=== PATIENT | female | born 1925 | race Hispanic/Latino ===

== ENCOUNTER 2016-09-14 20:30 | Emergency (ER) | payer MEDICARE ==
[2016-09-14 20:45] VITALS: BP 133/73; PULSE 70; RESP 18; TEMP 98; O2SAT 97
[2016-09-14 20:49] VITALS: BMI 21.0
--- NOTE | 2016-09-14 20:59 | ED PDOC ---
Arrival/HPI - General Chief Complaint: Altered Mental Status Time Seen by Provider: 09/14/16 20:49 Historian: Patient, Family (Daughter) - History of Present Illness Narrative History of Present Illness (Text): 09/14/16 20:55 Gabriela Almonte is an 89 year old female, whose past medical history includes dementia, breast cancer, COPD, and knee replacement, who presents to the Emergency department accompanied by daughter for altered mental status. Patient had an episode witnessed by her daughter tonjoshua where daughter felt patient's dementia was exacerbated and patient became angry, followed by an episode of calmness. Patient is back to her baseline and denies any chest pain, shortness of breath, abdominal pain, nausea, vomiting, or any other complaints. Time/Duration: Other (tonight) Symptom Onset: Sudden Symptom Course: Resolved Activities at Onset: Rest, Light Context: Home Past Medical History - Provider Review Nursing Documentation Reviewed: Yes - Infectious Disease Hx of Infectious Diseases: None - Tetanus Immunization Tetanus Immunization: Unknown - Cardiac Hx Cardiac Disorders: Yes Hx [place]: Yes Hx Hypertension: Yes - Pulmonary Hx Chronic Obstructive Pulmonary Disease (COPD): Yes - Neurological HX Cerebrovascular Accident: Yes Hx Transient Ischemic Attacks (TIA): Yes - HEENT Hx HEENT Disorder: Yes Hx Cataracts: Yes (bilateral implants) - Renal Hx Renal Failure: No - Endocrine/Metabolic Hx Diabetes Mellitus Type 1: No Hx Diabetes Mellitus Type 2: No Hx Hypothyroidism: No - Hematological/Oncological Hx Blood Disorders: No Hx Cancer: Yes (L breast cancer) - Integumentary Hx Dermatological Disorder: No Hx Basal Cell Carcinoma: No Hx Eczema: No Hx Melanoma: No Hx Psoriasis: No Hx Squamous Cell Carcinoma: No - Musculoskeletal/Rheumatological Hx Arthritis: Yes - Gastrointestinal Hx Gastrointestinal Disorders: No Hx Colostomy: No Hx Crohn's Disease: No Hx Diverticulitis: No Hx Gall Bladder Disease: No Hx Gastroesophageal Reflux: No Hx Ileostomy: No Hx Liver Failure: No Hx Pancreatitis: No HX Swallowing Problems: No - Genitourinary/Gynecological Hx Genitourinary Disorders: No Hx Hematuria: No Hx Incontinence: No Hx Sexually Transmitted Diseases: No Hx Urinary Tract Infection: No - Psychiatric Hx Psychophysiologic Disorder: Yes Hx Anxiety: Yes Hx Depression: No Hx Physical Abuse: No Hx Substance Use: No - Surgical History Hx Cholecystectomy: Yes Hx Joint Replacement: Yes (right knee replacement 15 yrs ago) Hx Mastectomy: Yes (left breast) - Anesthesia Hx Anesthesia: Yes Hx Anesthesia Reactions: No Hx Malignant Hyperthermia: No - Suicidal Assessment Feels Threatened In Home Enviroment: No Family/Social History - Physician Review Nursing Documentation Reviewed: Yes Family/Social History: Unknown Family HX Smoking Status: Light Smoker < 10 Cigarettes Daily Hx Alcohol Use: No Hx Substance Use: No Hx Substance Use Treatment: No Allergies/Home Meds Allergies/Adverse Reactions: Allergies No Known Allergies Allergy (Verified 11/08/15 15:33) Home Medications: Home Meds Medication Instructions Recorded Confirmed Metoprolol Tartrate [Lopressor] 25 mg PO DAILY 07/16/12 09/14/16 Alprazolam [Xanax] 1 tab PO QID PRN 11/08/15 09/14/16 traMADol [Ultram] 1 tab PO BID PRN 11/08/15 09/14/16 Clopidogrel [Plavix] 75 mg PO DAILY 09/14/16 09/14/16 Risperidone [Risperdal] 0.5 mg PO BID 09/14/16 09/14/16 Review of Systems - Physician Review All systems were reviewed & negative as marked: Yes Physical Exam - Physical Exam Narrative Physical Exam (Text): - Review of Systems Constitutional: Normal. absent: Fatigue, Weight Change, Fevers Eyes: Normal ENT: Normal Respiratory: Normal absent: SOB, Cough, Sputum Cardiovascular: Normal absent: Chest pain, Palpitations, Syncope Gastrointestinal: Normal absent: Abdominal pain, Diarrhea, Nausea, Vomiting Genitourinary: Normal. absent: Dysuria, Frequency, Hematuria Musculoskeletal: Normal. absent: Arthralgias, Back Pain, Neck Pain Skin: Normal Neurological: Normal absent: Focal Weakness Endocrine: Normal Hemo/Lymphatic: Normal Psychiatric: +dementia - Physical exam Patient appears age appropriate, speaking full sentences without difficulty - Systems Exam Head: Present: Atraumatic, Normocephalic Pupils: Present: PERRL Extraocular Muscles: Present: EOMI Conjunctiva: Present: Normal Mouth: Present: Moist Mucous Membranes Neck: Present: Normal Range of Motion. No: MIDLINE TENDERNESS, Paraspinal Tenderness Respiratory/Chest: Present: Clear to Auscultation, Good Air Exchange. No: Respiratory Distress, Accessory Muscle Use, Tachypnic Cardiovascular: Present: Regular Rate and Rhythm, Normal S1, S2, Peripheral Pulses Present. No: Murmurs Abdomen: Present: Normal Bowel Sounds, No: Tenderness, Peritoneal Signs, Rebound, Guarding, Distention Back: Present: Normal Inspection. No: Midline Tenderness, Paraspinal Tenderness Upper Extremity: Present: Normal Inspection. No: Cyanosis, Edema Lower Extremity: Present: Normal Inspection. No: Edema Neurological: Present: GCS=15, Speech Normal, cranial nerves II through XII fully intact with no cerebellar abnormality, neuro-sensory fully intact. No focal neurological deficits. Skin: Present: Warm, Dry, Normal Color. No: Rashes Psychiatric: Present: Alert Vital Signs Reviewed: Yes Vital Signs Temp Pulse Resp BP Pulse Ox 09/14/16 20:45 98.0 F 70 18 133/73 97 Temperature: Afebrile Blood Pressure: Normal Pulse: Regular Respiratory Rate: Normal Appearance: Positive for: Well-Appearing, Non-Toxic Pain Distress: None Mental Status: Positive for: other (Alert) Medical Decision Making ED Course and Treatment: 09/14/16 20:55 Impression: 89 year old female brought in by daughter for episode of AMS. Pt currently in no distress, speaking full sentences without difficulty, no focal neurological deficits on exam, at baseline per her daughter. Differential Diagnosis included but are not limited to: dehydration vs. UTI vs. pneumonia vs. dementia Plan: -- EKG -- CT Head w/o contrast -- Labs, blood culture -- Urinalysis, urine culture -- Reassess and disposition Prior Visits: Notes and results from previous visits were reviewed. On 03/31/2016, pt was seen in the Emergency department and admitted for CVA. Progress Notes: EKG: Ordered, reviewed, and independently interpreted the EKG. Rate : 68 BPM Rhythm : NSR Interpretation : No ST-segment elevations, RBBB. 09/14/16 22:39 CT HEAD VRAD IMPRESSION: No acute intracranial hemorrhage, or suspicious mass effect. Findings consistent with prior cerebral infarction, as detailed above. Dictated By: Anastasiia Mcneal MD Chest xray interpreted by ED physician shows no pneumothorax, no cardiomegaly, no infiltrates dw Dr. Victor M Kang in detail, including labs, hx, and PE findings. States pt can be dc'd home and he will do a home visit. pt's daughter agrees with plan and states she feels comfortable taking mom home on dc pt in no distress with no focal neurological deficits, not agitated - Lab Interpretations Lab Results: 09/14/16 21:20 09/14/16 21:40 Lab Results 09/14/16 21:40: Sodium 141, Potassium 4.0, Chloride 105, Carbon Dioxide 28, Anion Gap 12, BUN 13, Creatinine 0.9, Est GFR ( Amer) > 60, Est GFR (Non- Af Amer) 59, Random Glucose 71, Calcium 8.0 L, Total Bilirubin 0.4, AST 37, ALT 37, Alkaline Phosphatase 69, Total Protein 6.6, Albumin 3.7, Globulin 3.0, Albumin/Globulin Ratio 1.2 09/14/16 21:20: PT 11.0, INR 1.02, APTT 26.4 09/14/16 21:20: WBC 4.8 D, RBC 4.35, Hgb 13.6, Hct 39.6, MCV 91.0, MCH 31.3, MCHC 34.3, RDW 12.4, Plt Count 188, MPV 9.6, Gran % 64.2, Lymph % (Auto) 24.7, [place] % (Auto) 10.1 H, Eos % (Auto) 0.8 L, Baso % (Auto) 0.2, Gran # 3.06, Lymph # 1.2, [place] # 0.5, Eos # 0.0, Baso # 0.01 09/14/16 21:00: Urine Color Yellow, Urine Appearance Clear, Urine pH 6.5, Ur Specific [place] 1.015, Urine Protein Negative, Urine Glucose (UA) Negative, Urine Ketones Negative, Urine Blood Negative, Urine Nitrate Negative, Urine Bilirubin Negative, Urine Urobilinogen 1.0 H, Ur Leukocyte Esterase Negative I have reviewed the lab results: Yes - RAD Interpretation Radiology Orders: 09/14/16 20:56 HEAD W/O CONTRAST [CT] Stat CHEST PORTABLE [RAD] Stat - EKG Interpretation Interpreted by ED Physician: Yes Type: 12 lead EKG - Scribe Statement The provider has reviewed the documentation as recorded by the Soheila Gibson Provider Scribe Attestation: All medical record entries made by the Scribe were at my direction and personally dictated by me. I have reviewed the chart and agree that the record accurately reflects my personal performance of the history, physical exam, medical decision making, and the department course for this patient. I have also personally directed, reviewed, and agree with the discharge instructions and disposition. Disposition/Present on Arrival - Present on Arrival Any Indicators Present on Arrival: No History of DVT/PE: No History of Uncontrolled Diabetes: No Urinary Catheter: No History of Decub. Ulcer: No History Surgical Site Infection Following: None - Disposition Have Diagnosis and Disposition been Completed?: Yes Diagnosis: Altered mental status Disposition: HOME/ ROUTINE Disposition Time: 22:41 Patient Plan: Discharge Condition: GOOD Discharge Instructions (ExitCare): Altered Mental Status (ED), Dementia (ED) Additional Instructions: PLEASE RETURN TO THE EMERGENCY DEPARTMENT FOR NEW OR WORSENING SYMPTOMS. RETURN RIGHT AWAY IF YOU CANNOT FOLLOW UP WITH YOUR PRIMARY CARE DOCTOR, CLINIC, OR SPECIALIST IN 1-2 DAYS. Referrals: Kvng Kang MD [Primary Care Provider] - Follow up with primary
[2016-09-14 21:09] LABS: PH,URINE 6.5 (4.7-8.0); URINE BILIRUBIN NEGATIVE (NEGATIVE); URINE BLOOD NEGATIVE (NEGATIVE); URINE GLUCOSE (UA) NEGATIVE (NEGATIVE); URINE LEUKOCYTE ESTERASE NEGATIVE Leu/uL (NEGATIVE); URINE NITRATE NEGATIVE (NEGATIVE); URINE PROTEIN NEGATIVE mg/dL (<30 mg/dL)
[2016-09-14 21:12] LABS: URINE APPEARANCE CLEAR (CLEAR); URINE COLOR YELLOW (YELLOW)
[2016-09-14 21:39] LABS: BASO # 0.01 K/mm3 (0.0-2.0); BASO % 0.2 % (0.0-3.0); EOS % 0.8 % (1.5-5.0); GRAN # 3.06 (1.4-6.5); GRAN % 64.2 % (50.0-68.0); HEMOGLOBIN 13.6 gm/dL (12.0-16.0); LYMPH # 1.2 (1.2-3.4); LYMPH % 24.7 % (22.0-35.0); MEAN CORPUSCULAR HEMOGLOBIN 31.3 pg (25.0-35.0); MEAN CORPUSCULAR HGB CONC 34.3 g/dl (31.0-37.0); MEAN PLATELET VOLUME 9.6 fl (7.0-11.0); MONO # 0.5 (0.1-0.6); MONO % 10.1 % (1.0-6.0); PLATELET COUNT 188 10^3/uL (120.0-450.0); RBC 4.35 10^6/uL (3.5-6.1); RED CELL DISTRIBUTION WIDTH 12.4 % (11.5-14.5); WHITE BLOOD COUNT 4.8 10^3/ul (4.5-11.0)
[2016-09-14 21:50] LABS: INR 1.02 (0.93-1.08); PARTIAL THROMBOPLASTIN TIME 26.4 Seconds (23.7-30.8)
[2016-09-14 21:53] LABS: ALB/GLOB RATIO 1.2 (1.1-1.8); ALBUMIN 3.7 g/dL (3.0-4.8); ALT/SGPT 37 U/L (7-56); AST/SGOT 37 U/L (15-39); BLOOD UREA NITROGEN 13 mg/dL (7-21); GFR AFRICAN-AMERICAN > 60; GFR NON-AFRICAN AMERICAN 59
--- NOTE | 2016-09-14 22:20 | CT ---
EXAM: CT Head Without Intravenous Contrast CLINICAL HISTORY: 89 years old, female; Signs and symptoms; Altered mental status/memory loss; Additional info: AMS TECHNIQUE: Axial computed tomography images of the head/brain without intravenous contrast. This CT exam was performed using one or more of the following dose reduction techniques: automated exposure control, adjustment of the mA and/or kV according to patient size, and/or use of iterative reconstruction technique. COMPARISON: CT - HEAD W/O CONTRAST 03/31/2016 4:36:57 PM MRI examination of the brain performed 03/31/2016. FINDINGS: Brain: No acute intracranial hemorrhage. Decreased attenuation within the distribution of the right middle cerebral artery, consistent with prior cerebral infarction (detected on 03/31/2016 MRI). Otherwise, age-appropriate periventricular white matter disease. No edema. Ventricles: Age-appropriate ventriculomegaly. Bones: No acute displaced fracture. Sinuses: Unremarkable as visualized. No acute sinusitis. Mastoid air cells: Unremarkable as visualized. No mastoid effusion. IMPRESSION: No acute intracranial hemorrhage, or suspicious mass effect. Findings consistent with prior cerebral infarction, as detailed above.
--- NOTE | 2016-09-15 09:09 | RAD ---
HISTORY: AMS COMPARISON: 04/05/2016 FINDINGS: LUNGS: No active pulmonary disease. PLEURA: No significant pleural effusion identified, no pneumothorax apparent. CARDIOVASCULAR: Normal. OSSEOUS STRUCTURES: No significant abnormalities. VISUALIZED UPPER ABDOMEN: Normal. OTHER FINDINGS: None. IMPRESSION: No active disease.
--- NOTE | 2016-09-15 09:26 | CARD ---
APPROVED REPORT EKG Measurement Heart [id number] <Conclusion> Normal sinus rhythm Incomplete right bundle branch block Borderline ECG
== END 2016-09-14 22:43 | disposition home or self-care (01) ==
LOC: ED 20:30
DX: R41.82 Altered mental status, unspecified (principal); F03.90 Unspecified dementia, unspecified severity, without behavioral disturbance, psychotic disturbance, mood disturbance, and anxiety; I25.2 Old myocardial infarction; I10 Essential (primary) hypertension; Z72.0 Tobacco use

== ENCOUNTER 2016-09-24 14:25 | Observation (INO) | payer MEDICARE ==
[2016-09-24 14:36] VITALS: TEMP 97.8
[2016-09-24] MEDS ORDERED: Sodium Chloride 0.9% 500 ML IV STA (14:47)
[2016-09-24] MEDS ORDERED: Albuterol-Ipratrop 3 mg / 0.5 (3 ml) UD IH STA (14:47)
--- NOTE | 2016-09-24 14:52 | ED PDOC ---
Arrival/HPI - General Chief Complaint: Altered Mental Status Time Seen by Provider: 09/24/16 14:37 Historian: Patient, Family, Other (daughter) - History of Present Illness Narrative History of Present Illness (Text): 09/24/16 14:59 An 89 year old female, whose past medical history includes dementia, brought in by EMS with daughter after visiting nurse noted that she "appeared dehydrated" and family reports that she "hasn't eaten for several days". Patient reportedly with productive cough and shortness of breath and at times has been more confused. No falls or trauma noted. No abdominal pain. Patient denies chest pain. Reports intermittent headaches, none currently. PMD: Dr. Kang 09/24/16 18:42 Time/Duration: 1 week Symptom Onset: Sudden Symptom Course: Unchanged Activities at Onset: Rest Past Medical History - Provider Review Nursing Documentation Reviewed: Yes - Infectious Disease Hx of Infectious Diseases: None - Tetanus Immunization Tetanus Immunization: Unknown - Reproductive Menopause: Yes - Cardiac Hx Cardiac Disorders: Yes Hx [place]: Yes Hx Hypertension: Yes - Pulmonary Hx Chronic Obstructive Pulmonary Disease (COPD): Yes - Neurological HX Cerebrovascular Accident: Yes Hx Transient Ischemic Attacks (TIA): Yes - HEENT Hx HEENT Disorder: Yes Hx Cataracts: Yes (bilateral implants) - Renal Hx Renal Failure: No - Endocrine/Metabolic Hx Diabetes Mellitus Type 1: No Hx Diabetes Mellitus Type 2: No Hx Hypothyroidism: No - Hematological/Oncological Hx Blood Disorders: No Hx Cancer: Yes (L breast cancer) - Integumentary Hx Dermatological Disorder: No Hx Basal Cell Carcinoma: No Hx Eczema: No Hx Melanoma: No Hx Psoriasis: No Hx Squamous Cell Carcinoma: No - Musculoskeletal/Rheumatological Hx Arthritis: Yes - Gastrointestinal Hx Gastrointestinal Disorders: No Hx Colostomy: No Hx Crohn's Disease: No Hx Diverticulitis: No Hx Gall Bladder Disease: No Hx Gastroesophageal Reflux: No Hx Ileostomy: No Hx Liver Failure: No Hx Pancreatitis: No HX Swallowing Problems: No - Genitourinary/Gynecological Hx Genitourinary Disorders: No Hx Hematuria: No Hx Incontinence: No Hx Sexually Transmitted Diseases: No Hx Urinary Tract Infection: No - Psychiatric Hx Psychophysiologic Disorder: Yes Hx Anxiety: Yes Hx Depression: No Hx Physical Abuse: No Hx Substance Use: No - Surgical History Hx Cholecystectomy: Yes Hx Joint Replacement: Yes (right knee replacement 15 yrs ago) Hx Mastectomy: Yes (left breast) - Anesthesia Hx Anesthesia: Yes Hx Anesthesia Reactions: No Hx Malignant Hyperthermia: No - Suicidal Assessment Feels Threatened In Home Enviroment: No Family/Social History - Physician Review Nursing Documentation Reviewed: Yes Family/Social History: No Known Family HX Smoking Status: Light Smoker < 10 Cigarettes Daily Hx Alcohol Use: No Hx Substance Use: No Hx Substance Use Treatment: No Allergies/Home Meds Allergies/Adverse Reactions: Allergies No Known Allergies Allergy (Verified 09/24/16 14:36) Home Medications: Home Meds Medication Instructions Recorded Confirmed Metoprolol Tartrate [Lopressor] 25 mg PO BID 07/16/12 09/24/16 Alprazolam [Xanax] 1 tab PO QID PRN 11/08/15 09/24/16 traMADol [Ultram] 1 tab PO BID PRN 11/08/15 09/24/16 Clopidogrel [Plavix] 75 mg PO DAILY 09/14/16 09/24/16 Atorvastatin [Lipitor] 10 mg PO HS 09/24/16 09/24/16 Fluticasone/Vilanterol [Breo 1 inh INH DAILY 09/24/16 09/24/16 Ellipta 200-25 Mcg INH] Review of Systems - Review of Systems Systems not reviewed;Unavailable: Dementia Constitutional: Fatigue. absent: Fevers Eyes: absent: Vision Changes, Photophobia ENT: Sinus Congestion. absent: Hearing Changes, Voice Changes, Sore Throat, Rhinorrhea Respiratory: SOB, Cough, Sputum, Wheezing Cardiovascular: [place], Other (chest tightness). absent: Chest Pain, Calf Pain Gastrointestinal: Appetite Changes. absent: Abdominal Pain, Constipation, Diarrhea Genitourinary Female: absent: Dysuria, Frequency, Hematuria Musculoskeletal: absent: Arthralgias, Back Pain Skin: absent: Rash Neurological: Headache. absent: Dizziness, Focal Weakness Endocrine: absent: Polyuria Hemo/Lymphatic: absent: Easy Bleeding Psychiatric: Anxiety Physical Exam - Physical Exam Narrative Physical Exam (Text): 09/24/16 14:55 Head: Atraumatic. Normocephalic. Eyes: PERRL. EOMI. Conjunctivae are not pale. ENT: Dry Mucous membranes. No drooling or oropharygneal exudate or abscess. No facial swelling. No nasal discharge. Neck: Supple. Full ROM. No JVD. No lymphadenopathy. Cardiovascular: Regular rate. Regular rhythm. Systolic murmur. Pulmonary/Chest: Wheezing at lower bases bilaterally. No accessory muscle usage or respiratory distress. Abdominal: Soft and non-distended. There is no tenderness. No rebound, guarding, or rigidity. No organomegaly. Good bowel sounds. Back: No CVA tenderness. Rectal: no melena or active bleeding Extremities: No edema. No cyanosis. No clubbing. Full range of motion in all extremities. No calf tenderness. Skin: Skin is pale but warm. Neurological: Alert, awake. Motor is intact in upper and lower extremities with mild weakness to left upper extremity reportedly chronic from prior stroke. No slurred speech. No facial droop. No meningeal signs. Psychiatric: History of dementia. Denies depression. Anxious. 09/24/16 19:08 Vital Signs Reviewed: Yes Vital Signs Temp Pulse Resp BP Pulse Ox 09/24/16 18:01 95 H 16 133/60 96 09/24/16 16:30 91 H 16 122/54 L 96 09/24/16 15:16 84 19 96 09/24/16 14:29 97.8 F 80 20 93/45 L 97 Temperature: Afebrile Blood Pressure: Normal Pulse: Regular Respiratory Rate: Normal Appearance: Positive for: Non-Toxic, Comfortable, Cachectic Pain Distress: None Mental Status: Positive for: other (alert, mental status at baseline, per daughter) Medical Decision Making ED Course and Treatment: 09/24/16 14:53 Impression: An 89 year old female with sinus congestion, cough and loss of appetite. Differential Diagnosis included but are not limited to: dehydration vs. pneumonia vs. COPD vs. Dementia Plan: -- EKG -- chest xray -- labs -- Urinalysis -- IV fluids, Duoneb -- Reassess and disposition Prior Visits: Notes and results from previous visits were reviewed. Patient was last seen in the emergency department on 09/14/16 for evaluation of altered mental status. Progress Notes: Patient's history supplemented by daughter at bedside. She reports patient is a smoker but due to cough "hasn't smoked in three days". On exam she is initially hypotensive but denies chest pain or abdominal pain or sob. Wheezes noted which improved but persisted after initial nebulizers. No respiratory distress noted. Patient reportedly "hasn't eaten anything for days" although abdomen is soft and nontender. IV fluids initiated for reported lack of po intake, hypotension improved after fluid administration. CXR as per radiology unremarkable although risks of cancer/malignancy reviewed due to smoking history. Patient has intermittent agitation in ED, family states she has been anxious and takes xanax at home. Xanax ordered in ED. I reviewed case with PMD Dr Sharla Kang, patient to be admitted for medical clearance, IV hydration, copd treatment, and potential mental health evaluation. Currently no focal motor or sensory deficits, neurologically intact at her baseline. EKG with t wave changes not noted on prior EKG, although RBBB previously noted. Her initial troponin and BNP are unremarkable and she does not complain of chest pain on re-examination. I reviewed treatment plan with patient and daughter. Daughter confirms she is acting her typical self and on exam there is no acute focal weakness noted or change in mental status with serial exams in ED. Continues to deny any history of chest pain. - Lab Interpretations Lab Results: 09/24/16 15:07 09/24/16 16:34 Lab Results 09/24/16 16:34: Sodium 141, Chloride 101, Potassium 3.9, Carbon Dioxide 28, Anion Gap 16, BUN 17, Creatinine 0.7, Est GFR ( Amer) > 60, Est GFR (Non- Af Amer) > 60, Random Glucose 105, Calcium 8.7, Total Bilirubin 0.7, AST 25, ALT 34, Alkaline Phosphatase 84, Lactate Dehydrogenase 405, Total Creatine Kinase 24 L, Troponin I < 0.01, NT-Pro-B Natriuret Pep 285, Total Protein 7.1, Albumin 3.9, Globulin 3.2, Albumin/Globulin Ratio 1.2 09/24/16 15:14: POC Glucose (mg/dL) 128 H 09/24/16 15:07: PT 11.7, INR 1.08, APTT 28.7 09/24/16 15:07: pO2 42, VBG pH 7.30 L, VBG pCO2 64.0 H, VBG HCO3 31.5 H, VBG Total CO2 33.5 H, VBG O2 Sat (Calc) 77.6 H, VBG Base Excess 3.2 H, VBG Potassium 6.1 H, Sodium 137.0, Chloride 104.0, Glucose 111 H, Lactate 1.4, FiO2 21.0, Venous Blood Potassium 6.1 H 09/24/16 15:07: WBC 8.6 D, RBC 4.99, Hgb 15.7, Hct 45.2, MCV 90.6, MCH 31.5, MCHC 34.7, RDW 12.5, Plt Count 295, MPV 9.6, Gran % 71.3 H, Lymph % (Auto) 18.9 L, [place] % (Auto) 8.9 H, Eos % (Auto) 0.5 L, Baso % (Auto) 0.4, Gran # 6.12, Lymph # 1.6, [place] # 0.8 H, Eos # 0.0, Baso # 0.03 I have reviewed the lab results: Yes - RAD Interpretation Radiology Orders: 09/24/16 14:46 CHEST PORTABLE [RAD] Stat - EKG Interpretation EKG Interpretation (Text): EKG 15:09 normal sinus rhythm rate of 84 with premature atrial complexes, t wave abnormality, right bundle branch block Interpreted by ED Physician: Yes Type: 12 lead EKG Comparison: Different from prev. EKG - Medication Orders Current Medication Orders: Discontinued Medications Albuterol/Ipratropium (Duoneb 3 Mg/0.5 Mg (3 Ml) Ud) 3 ml IH STAT STA Stop: 09/24/16 14:48 Last Admin: 09/24/16 15:22 Dose: 3 ml Alprazolam (Xanax) 0.5 mg PO STAT STA Stop: 09/24/16 18:08 Last Admin: 09/24/16 18:20 Dose: 0.5 mg Sodium Chloride (Sodium Chloride 0.9%) 500 mls @ 1,000 mls/hr IV .Q30M STA Stop: 09/24/16 15:16 Last Admin: 09/24/16 15:22 Dose: 1,000 mls/hr - Scribe Statement The provider has reviewed the documentation as recorded by the Soheila Buenrostro Provider Scribe Attestation: All medical record entries made by the Scribe were at my direction and personally dictated by me. I have reviewed the chart and agree that the record accurately reflects my personal performance of the history, physical exam, medical decision making, and the department course for this patient. I have also personally directed, reviewed, and agree with the discharge instructions and disposition. Disposition/Present on Arrival - Present on Arrival Any Indicators Present on Arrival: No History of DVT/PE: No History of Uncontrolled Diabetes: No Urinary Catheter: No History of Decub. Ulcer: No History Surgical Site Infection Following: None - Disposition Have Diagnosis and Disposition been Completed?: Yes Diagnosis: Anxiety, COPD (chronic obstructive pulmonary disease), Appetite loss, Dehydration, Abnormal EKG Disposition: HOSPITALIZED Disposition Time: 17:30 Patient Plan: Admission Patient Problems: Current Active Problems Problem Status Onset Abnormal EKG Acute Anxiety Acute Appetite loss Acute COPD (chronic obstructive pulmonary disease) Acute Dehydration Acute Condition: FAIR
[2016-09-24 15:20] LABS: VENOUS BLOOD GAS BASE EXCESS 3.2 mmol/L (0.0-2.0); VENOUS BLOOD GAS PO2 42 mm/Hg (30-55)
[2016-09-24 15:21] LABS: BASO # 0.03 K/mm3 (0.0-2.0); BASO % 0.4 % (0.0-3.0); EOS % 0.5 % (1.5-5.0); GRAN # 6.12 (1.4-6.5); GRAN % 71.3 % (50.0-68.0); HEMOGLOBIN 15.7 gm/dL (12.0-16.0); LYMPH # 1.6 (1.2-3.4); LYMPH % 18.9 % (22.0-35.0); MEAN CELL VOLUME 90.6 fL (80.0-105.0); MEAN CORPUSCULAR HEMOGLOBIN 31.5 pg (25.0-35.0); MEAN CORPUSCULAR HGB CONC 34.7 g/dl (31.0-37.0); MEAN PLATELET VOLUME 9.6 fl (7.0-11.0); MONO # 0.8 (0.1-0.6); MONO % 8.9 % (1.0-6.0); PLATELET COUNT 295 10^3/uL (120.0-450.0); RBC 4.99 10^6/uL (3.5-6.1); RED CELL DISTRIBUTION WIDTH 12.5 % (11.5-14.5); WHITE BLOOD COUNT 8.6 10^3/ul (4.5-11.0)
[2016-09-24 15:34] LABS: INR 1.08 (0.93-1.08); PARTIAL THROMBOPLASTIN TIME 28.7 Seconds (23.7-30.8); PROTHROMBIN TIME 11.7 Seconds (9.9-11.8)
--- NOTE | 2016-09-24 16:27 | RAD ---
HISTORY: cough, sob COMPARISON: 09/14/2016 FINDINGS: LUNGS: No pulmonary infiltrate. Several calcified granulomas at lateral right base. PLEURA: No significant pleural effusion identified, no pneumothorax apparent. CARDIOVASCULAR: Normal. OSSEOUS STRUCTURES: No significant abnormalities. VISUALIZED UPPER ABDOMEN: Normal. OTHER FINDINGS: None. IMPRESSION: No active disease.
[2016-09-24 17:33] LABS: ALB/GLOB RATIO 1.2 (1.1-1.8); ALBUMIN 3.9 g/dL (3.0-4.8); ALT/SGPT 34 U/L (7-56); AST/SGOT 25 U/L (15-39); BLOOD UREA NITROGEN 17 mg/dL (7-21); CALCIUM 8.7 mg/dL (8.4-10.5); GFR AFRICAN-AMERICAN > 60; GFR NON-AFRICAN AMERICAN > 60
[2016-09-24 17:46] LABS: B-TYPE NATRIURETIC PEPTIDE 285 pg/mL (0-450)
[2016-09-24 17:47] LABS: TROPONIN I < 0.01 ng/mL
[2016-09-24 20:23] VITALS: BMI 14.9
--- NOTE | 2016-09-24 20:57 | CT ---
EXAM: CT Head Without Intravenous Contrast CLINICAL HISTORY: 89 years old, female; Pain; Headache; Headache not specified TECHNIQUE: Axial computed tomography images of the head/brain without intravenous contrast. This CT exam was performed using one or more of the following dose reduction techniques: automated exposure control, adjustment of the mA and/or kV according to patient size, and/or use of iterative reconstruction technique. COMPARISON: CT - HEAD W/O CONTRAST 09/14/2016 9:41:44 PM FINDINGS: Brain: Encephalomalacia predominantly involving the right frontal parietal lobes, right basal ganglia and insula. Correlate for prior right MCA territory infarct. Bilateral white matter changes. This is nonspecific and may include microangiopathic disease, small lacunae of indeterminate chronicity, chronic infarcts and/or encephalomalacia. Vascular calcification. No hemorrhage. No edema. Ventricles: Ex vacuo dilatation of the right lateral ventricle. No hydrocephalus. Sinuses: No acute sinusitis. Mastoid air cells: No mastoid effusion. IMPRESSION: No CT evidence of acute intracranial abnormality. Chronic changes as above.
[2016-09-24 22:57] LABS: URINE BILIRUBIN NEGATIVE (NEGATIVE); URINE BLOOD NEGATIVE (NEGATIVE); URINE GLUCOSE (UA) NEGATIVE (NEGATIVE); URINE LEUKOCYTE ESTERASE NEGATIVE Leu/uL (NEGATIVE); URINE NITRATE NEGATIVE (NEGATIVE); URINE PROTEIN TRACE mg/dL (<30 mg/dL)
[2016-09-24 23:05] LABS: URINE APPEARANCE CLEAR (CLEAR); URINE COLOR YELLOW (YELLOW)
[2016-09-24 23:12] LABS: URINE BACTERIA FEW (NEG); URINE EPITHELIAL CELLS 0 - 2 /hpf (0-5); URINE RBC 0 - 2 /hpf (0-2); URINE WBC 0 - 2 /hpf (0-6)
[2016-09-25] MEDS: Dextrose 5%/0.45% NS 1,000 ML IV SCH ×2 (00:03→10:22)
[2016-09-25] MEDS: Levalbuterol 0.63 MG/3 ML Inhal Soln UD IH SCH ×2 (02:45→08:26)
[2016-09-25 07:09] LABS: MEAN CELL VOLUME 89.3 fL (80.0-105.0); MEAN CORPUSCULAR HEMOGLOBIN 31.3 pg (25.0-35.0); MEAN PLATELET VOLUME 9.2 fl (7.0-11.0); RBC 4.48 10^6/uL (3.5-6.1); RED CELL DISTRIBUTION WIDTH 12.1 % (11.5-14.5); WHITE BLOOD COUNT 7.2 10^3/ul (4.5-11.0)
[2016-09-25 07:42] LABS: ALB/GLOB RATIO 1.1 (1.1-1.8); ALBUMIN 3.4 g/dL (3.0-4.8); ALT/SGPT 26 U/L (7-56); AST/SGOT 25 U/L (15-39); BLOOD UREA NITROGEN 12 mg/dL (7-21); CALCIUM 8.3 mg/dL (8.4-10.5); GFR AFRICAN-AMERICAN > 60; GFR NON-AFRICAN AMERICAN > 60
[2016-09-25 08:05] VITALS: BP 135/74; RESP 20; O2SAT 94
[2016-09-25] MEDS ORDERED: BREO ELLIPTA INH SCH (10:00)
[2016-09-25 10:24] VITALS: PULSE 98
--- NOTE | 2016-09-25 17:15 | HP ---
ADMITTING HISTORY AND PHYSICAL HISTORY OF PRESENT ILLNESS: The patient is an 89-year-old female who was brought in by EMS when as per family members the patient appeared dehydrated. She reportedly has not been for several days. She also has shown a productive cough and shortness of breath at times with episodes of confusion. Therefore, and the patient was brought to the emergency room. PAST MEDICAL HISTORY: She has a past medical history positive for dementia, status post cerebrovascular accident with no apparent residual deficits. She also has a history of COPD. Hypertension, she had bilateral cataract implants. 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 She is status post right knee replacement many years ago. SOCIAL HISTORY: She is a former smoker, still continues to smoke less than a pack a day. She is a nonalcoholic drinker. ALLERGIES: SHE HAS NO KNOWN MEDICAL ALLERGIES. MEDICATIONS AT THE TIME OF ADMISSION: Include metoprolol tartrate 25 mg twice a day, Plavix 75 mg once a day, aspirin 81 mg once a day, Lipitor 10 mg once a day. She takes Breo Ellipta one inhalation daily. She is on tramadol 50 mg tablet twice a day as needed for pain, alprazolam 0.25 mg p.r.n. agitation. REVIEW OF SYSTEMS: Otherwise unremarkable. PHYSICAL EXAMINATION: GENERAL: The patient is awake, alert; however lethargic. VITAL SIGNS: Her blood pressure is 193/45, heart rate is 80 beats per minute, respirations are 20 and she is afebrile. HEENT: Examination of the head, eyes, ears, nose and throat are unremarkable. NECK: Supple with no lymphadenopathy. No goiter. HEART: Regular, systolic murmur is appreciated. LUNGS: Have bilateral wheezing at the bases. The patient does not appear to be in respiratory distress. ABDOMEN: Soft, nontender with no organomegaly and bowel sounds are normal. EXTREMITIES: Reveals no cyanosis, clubbing or edema. NEUROLOGIC: The patient is awake, alert and oriented. There are no focal neurological signs. However, there is some mild slight weakness on the left side reported. LABORATORY STUDIES: Reveal a white blood cell count to be 8.6, hemoglobin and hematocrit are 15.7 and 45.2 respectively, platelet count is 295. Sodium is 141, potassium is 3.9, BUN and creatinine are 17 and 0.7, nonfasting glucose is 105. CAT scan of the head shows an old right-sided infarct in the middle cerebral artery distribution. Chest x-ray shows no acute disease. IMPRESSION: So, the patient is admitted with a diagnosis of chronic obstructive pulmonary disease exacerbation, dehydration, failure to thrive. PLAN: She will be reevaluated in the morning and follow closely. Celestino Kang MD
--- NOTE | 2016-09-25 21:17 | CARD ---
APPROVED REPORT EKG Measurement Heart [id number] <Conclusion> Sinus rhythm with premature atrial complexes Right bundle branch block T wave abnormality, consider inferior ischemia Abnormal ECG
== END 2016-09-25 12:52 | disposition home or self-care (01) ==
LOC: ED 14:25 → ERH 18:00 → INTOOBSV 18:00 → ERH 19:54 → 5RNO 21:38
PROVIDERS: ADMIT Internal Medicine; ATTEND Internal Medicine
DX: J44.1 Chronic obstructive pulmonary disease with (acute) exacerbation (principal); E86.0 Dehydration; R62.7 Adult failure to thrive; F03.90 Unspecified dementia, unspecified severity, without behavioral disturbance, psychotic disturbance, mood disturbance, and anxiety; I10 Essential (primary) hypertension; F17.210 Nicotine dependence, cigarettes, uncomplicated; Z86.73 Personal history of transient ischemic attack (TIA), and cerebral infarction without residual deficits; Z90.12 Acquired absence of left breast and nipple; Z79.02 Long term (current) use of antithrombotics/antiplatelets; Z85.3 Personal history of malignant neoplasm of breast; Z96.651 Presence of right artificial knee joint
CPT/HCPCS: 36415; 70450; 71010; 80053; 81001; 82550; 82803; 82948; 83615; 83880; 84484; 85025; 85027; 85610; 85730; 87040; 87086; 93005; 94640; 99285; G0378; J7040; J7042

== ENCOUNTER 2016-10-27 15:47 | Inpatient (IN) | payer MEDICARE, OTHER ==
[2016-10-27 15:48] VITALS: BMI 14.9
[2016-10-27] MEDS ORDERED: Nitroglycerin 2% Ointment Foilpak UD TOP STA (16:13)
--- NOTE | 2016-10-27 16:28 | ED PDOC ---
Arrival/HPI - General Chief Complaint: Chest Pain Time Seen by Provider: 10/27/16 16:03 Historian: Patient, Other (daughter) - History of Present Illness Narrative History of Present Illness (Text): 10/27/16 16:30 An 89 year old female, whose past medical history includes dementia, was brought in by EMS with daughter to the emergency department for chest pain. Patient's daughter takes care of patient. Daughter reports patient was complaining of chest pain since last night and nausea. Daughter also notes she had a heart attack in the past and a stroke in the past year. Patient denies any pain or any other complaints at this time. Reports to smoking 2 weeks ago, a pack a day. Denies alcohol use. PMD: Dr. Kang Symptom Onset: Sudden Symptom Course: Unchanged Activities at Onset: Rest Context: Home Associated Symptoms (Text): 10/27/16 17:26 History of dementia and a very poor historian. History is obtained from the daughter who cares for the patient. Daughter reports chest pain and nausea intermittently since last night. No dyspnea. 10/27/16 17:50 Took her aspirin today. Past Medical History - Provider Review Nursing Documentation Reviewed: Yes - Infectious Disease Hx of Infectious Diseases: None - Tetanus Immunization Tetanus Immunization: Unknown - Cardiac Hx Cardiac Disorders: Yes Hx Hypertension: Yes - Pulmonary Hx Chronic Obstructive Pulmonary Disease (COPD): Yes - Neurological HX Cerebrovascular Accident: Yes Hx Transient Ischemic Attacks (TIA): Yes - HEENT Hx HEENT Disorder: Yes Hx Cataracts: Yes (bilateral implants) - Renal Hx Renal Failure: No - Endocrine/Metabolic Hx Diabetes Mellitus Type 1: No Hx Diabetes Mellitus Type 2: No Hx Hypothyroidism: No - Hematological/Oncological Hx Blood Disorders: No Hx Cancer: Yes (L breast cancer) - Integumentary Hx Dermatological Disorder: No Hx Basal Cell Carcinoma: No Hx Eczema: No Hx Melanoma: No Hx Psoriasis: No Hx Squamous Cell Carcinoma: No - Musculoskeletal/Rheumatological Hx Falls: No - Gastrointestinal Hx Gastrointestinal Disorders: No Hx Colostomy: No Hx Crohn's Disease: No Hx Diverticulitis: No Hx Gall Bladder Disease: No Hx Gastroesophageal Reflux: No Hx Ileostomy: No Hx Liver Failure: No Hx Pancreatitis: No HX Swallowing Problems: No - Genitourinary/Gynecological Hx Genitourinary Disorders: No Hx Hematuria: No Hx Incontinence: No Hx Sexually Transmitted Diseases: No Hx Urinary Tract Infection: No - Psychiatric Hx Psychophysiologic Disorder: Yes Hx Anxiety: Yes Hx Depression: No Hx Physical Abuse: No Hx Substance Use: No - Surgical History Hx Cholecystectomy: Yes Hx Joint Replacement: Yes (right knee replacement 15 yrs ago) Hx Mastectomy: Yes (left breast) - Anesthesia Hx Anesthesia: Yes Hx Anesthesia Reactions: No Hx Malignant Hyperthermia: No - Suicidal Assessment Feels Threatened In Home Enviroment: No Family/Social History - Physician Review Nursing Documentation Reviewed: Yes Family/Social History: No Known Family HX Smoking Status: Light Smoker < 10 Cigarettes Daily Hx Alcohol Use: No Hx Substance Use: No Hx Substance Use Treatment: No Allergies/Home Meds Allergies/Adverse Reactions: Allergies No Known Allergies Allergy (Verified 10/27/16 16:11) Home Medications: Home Meds Medication Instructions Recorded Confirmed Metoprolol Tartrate [Lopressor] 25 mg PO BID 07/16/12 10/27/16 Clopidogrel [Plavix] 75 mg PO DAILY 09/14/16 10/27/16 Atorvastatin [Lipitor] 10 mg PO HS 09/24/16 10/27/16 Review of Systems - Physician Review All systems were reviewed & negative as marked: Yes - Review of Systems Systems not reviewed;Unavailable: Dementia Constitutional: Normal Respiratory: absent: SOB, Cough, Wheezing Cardiovascular: Chest Pain. absent: Palpitations, Syncope Gastrointestinal: Nausea. absent: Abdominal Pain Musculoskeletal: absent: Back Pain Physical Exam Vital Signs Reviewed: Yes Vital Signs Temp Pulse Resp BP Pulse Ox 10/27/16 17:48 85 18 99/65 L 96 10/27/16 15:59 98.4 F 74 18 95/61 L 96 Temperature: Afebrile Blood Pressure: Hypotensive Pulse: Regular Respiratory Rate: Normal Appearance: Positive for: Comfortable, Ill-Appearing (chronically), Cachectic, Other (thin) Pain Distress: None Mental Status: Positive for: Confused - Systems Exam Head: Present: Atraumatic, Normocephalic Pupils: Present: PERRL Extroacular Muscles: Present: EOMI Conjunctiva: Present: Normal Mouth: Present: Moist Mucous Membranes Pharnyx: No: ERYTHEMA, EXUDATE, TONSILS ENLARGED Neck: Present: Normal Range of Motion Respiratory/Chest: Present: Other (lung sounds diminished). No: Respiratory Distress, Accessory Muscle Use Cardiovascular: Present: Regular Rate and Rhythm, Normal S1, S2. No: Murmurs Abdomen: Present: Normal Bowel Sounds. No: Tenderness, Distention, Peritoneal Signs, Rebound, Guarding Back: Present: Normal Inspection Upper Extremity: Present: Normal Inspection. No: Cyanosis, Edema Lower Extremity: Present: Normal Inspection. No: Edema Neurological: Present: GCS=15, CN II-XII Intact, Speech Normal, Motor Func Grossly Intact Skin: Present: Warm, Dry, Normal Color. No: Rashes Psychiatric: Present: Alert, Normal Insight Medical Decision Making ED Course and Treatment: 10/27/16 16:21 Impression: An 89 year old female with chest pain. Plan: -- EKG -- chest xray -- labs -- Nitroglycerin -- Reassess and disposition Prior Visits: Notes and results from previous visits were reviewed. Patient was last seen in the emergency department on 09/24/16 for evaluation of dehydration, shortness of breath and productive cough. Progress Notes: 10/27/16 17:28 EKG shows normal sinus rhythm rate approximately 70 with a left axis and a right bundle branch block and inverted T waves anteriorly and laterally similar to EKG of 09/24/2016 10/27/16 18:29 chest xray: Creator : JOAQUIN CROSS MD FINDINGS: LUNGS: The lungs are hyperinflated and there is peribronchial thickening with chronic changes in both lungs. No focal consolidation. There are small calcified nodules in the right lower lobe. PLEURA: No significant pleural effusion identified, no pneumothorax apparent. CARDIOVASCULAR: The heart is normal in size. Atherosclerotic aortic arch calcifications are present. OSSEOUS STRUCTURES: No significant abnormalities. VISUALIZED UPPER ABDOMEN: Normal. IMPRESSION: No active pulmonary disease. COPD. - Lab Interpretations Lab Results: 10/27/16 17:00 10/27/16 17:00 Lab Results 10/27/16 17:00: Sodium 142, Potassium 4.6, Chloride 103, Carbon Dioxide 30, Anion Gap 14, BUN 22 H, Creatinine 0.8, Est GFR ( Amer) > 60, Est GFR ( Non-Af Amer) > 60, Random Glucose 95, Calcium 8.8, Total Bilirubin 0.4, AST 35, ALT 42, Alkaline Phosphatase 74, Lactate Dehydrogenase 436, Total Creatine Kinase 36, Troponin I < 0.01, NT-Pro-B Natriuret Pep 179, Total Protein 6.7, Albumin 3.9, Globulin 2.8, Albumin/Globulin Ratio 1.4 10/27/16 17:00: PT 10.6, INR 0.98, APTT 26.4 10/27/16 17:00: WBC 4.0 L D, RBC 4.55, Hgb 14.2, Hct 41.7, MCV 91.6, MCH 31.2, MCHC 34.1, RDW 13.5, Plt Count 230, MPV 9.4, Gran % 56.1, Lymph % (Auto) 34.0, [place] % (Auto) 7.2 H, Eos % (Auto) 2.2, Baso % (Auto) 0.5, Gran # 2.26, Lymph # 1.4, [place] # 0.3, Eos # 0.1, Baso # 0.02 I have reviewed the lab results: Yes - RAD Interpretation Radiology Orders: 10/27/16 16:12 CHEST PORTABLE [RAD] Stat - EKG Interpretation Interpreted by ED Physician: Yes Type: 12 lead EKG - Medication Orders Current Medication Orders: Sodium Chloride (Sodium Chloride 0.9%) 500 mls @ 500 mls/hr IV ONCE ONE Stop: 10/27/16 18:49 Last Admin: 10/27/16 18:02 Dose: 500 mls/hr Discontinued Medications Nitroglycerin (Nitro-Bid 2% Oint) 1 ea TOP STAT STA Stop: 10/27/16 16:14 Last Admin: 10/27/16 17:03 Dose: 1 ea - Scribe Statement The provider has reviewed the documentation as recorded by the Soheila Buenrostro Provider Scribe Attestation: All medical record entries made by the Soheila were at my direction and personally dictated by me. I have reviewed the chart and agree that the record accurately reflects my personal performance of the history, physical exam, medical decision making, and the department course for this patient. I have also personally directed, reviewed, and agree with the discharge instructions and disposition. Disposition/Present on Arrival - Present on Arrival Any Indicators Present on Arrival: No History of DVT/PE: No History of Uncontrolled Diabetes: No Urinary Catheter: No History of Decub. Ulcer: No History Surgical Site Infection Following: None - Disposition Have Diagnosis and Disposition been Completed?: Yes Diagnosis: Chest pain Disposition: HOSPITALIZED Disposition Time: 17:50 Patient Plan: Observation, Telemetry Patient Problems: Current Active Problems Problem Status Onset Chest pain Acute Condition: GOOD
[2016-10-27 17:20] LABS: BASO # 0.02 K/mm3 (0.0-2.0); BASO % 0.5 % (0.0-3.0); EOS # 0.1 (0.0-0.7); EOS % 2.2 % (1.5-5.0); GRAN # 2.26 (1.4-6.5); GRAN % 56.1 % (50.0-68.0); HEMATOCRIT 41.7 % (36.0-48.0); LYMPH # 1.4 (1.2-3.4); MEAN CELL VOLUME 91.6 fl (80.0-105.0); MEAN CORPUSCULAR HEMOGLOBIN 31.2 pg (25.0-35.0); MEAN CORPUSCULAR HGB CONC 34.1 g/dl (31.0-37.0); MEAN PLATELET VOLUME 9.4 fl (7.0-11.0); MONO # 0.3 (0.1-0.6); MONO % 7.2 % (1.0-6.0); RED CELL DISTRIBUTION WIDTH 13.5 % (11.5-14.5)
[2016-10-27 17:28] LABS: ALB/GLOB RATIO 1.4 (1.1-1.8); ALKALINE PHOSPHATASE 74 U/L (38-133); ALT/SGPT 42 U/L (7-56); AST/SGOT 35 U/L (15-39); BILIRUBIN,TOTAL 0.4 mg/dL (0.2-1.3); BLOOD UREA NITROGEN 22 mg/dL (7-21); CALCIUM 8.8 mg/dL (8.4-10.5); CARBON DIOXIDE 30 mmol/L (21-33); CHLORIDE 103 mmol/L (98-107); GFR AFRICAN-AMERICAN > 60; GLUCOSE,RANDOM 95 mg/dL (70-110); POTASSIUM 4.6 mmol/L (3.6-5.0); SODIUM 142 mmol/L (132-148); TOTAL PROTEIN 6.7 g/dL (5.8-8.3)
[2016-10-27 17:29] LABS: INR 0.98 (0.93-1.08); PARTIAL THROMBOPLASTIN TIME 26.4 Seconds (23.7-30.8)
[2016-10-27 17:46] LABS: TROPONIN I < 0.01 ng/mL
[2016-10-27] MEDS ORDERED: Sodium Chloride 0.9% 500 ML IV ONE (17:50)
--- NOTE | 2016-10-27 18:27 | RAD ---
HISTORY: Chest pain COMPARISON: 09/24/2016. FINDINGS: LUNGS: The lungs are hyperinflated and there is peribronchial thickening with chronic changes in both lungs. No focal consolidation. There are small calcified nodules in the right lower lobe. PLEURA: No significant pleural effusion identified, no pneumothorax apparent. CARDIOVASCULAR: The heart is normal in size. Atherosclerotic aortic arch calcifications are present. OSSEOUS STRUCTURES: No significant abnormalities. VISUALIZED UPPER ABDOMEN: Normal. OTHER FINDINGS: None. IMPRESSION: No active pulmonary disease. COPD.
[2016-10-27] MEDS ORDERED: Pneumococcal 23-Valent Vaccine IM ONE (22:18)
--- NOTE | 2016-10-27 23:11 | CARD ---
APPROVED REPORT EKG Measurement Heart [id number] <Conclusion> Normal sinus rhythm Left axis deviation Incomplete right bundle branch block Septal infarct, age undetermined T wave abnormality, consider anterolateral ischemia Abnormal ECG
--- NOTE | 2016-10-28 00:24 | CP.PCM.PN ---
Subjective - Date & Time of Evaluation Date of Evaluation: 10/28/16 Time of Evaluation: 00:22 - Subjective Subjective: Patient was seen at bedside because she was trying to get out of bed. Nurse Santy said that he received an order from PMD:xanax 0.5 mg PO BID and xanax 0.5 mg PO Q6H prn. She received 0.5 mg prn of xanax order at 9:40 still confused , agitated. Patient does not answer any questions. 104/66,20,81,97.3*F. Medical record was reviewed. This 89 year old white woman was admitted with chest pain. Has PMH of Dementia, CVA , COPD, HTN , B/L cataract implants, right knee replacement, right mastectomy for breast cancer,former smoker. Objective - Vital Signs/Intake and Output Vital Signs (last 24 hours): Temp Pulse Resp BP Pulse Ox 97.3 F L 81 20 104/66 98 10/27/16 23:32 10/27/16 23:32 10/27/16 23:32 10/27/16 23:32 10/27/16 23:32 - Medications Medications: Current Medications Alprazolam (Xanax) 0.5 mg PO BID RAUL PRN Reason: Protocol Alprazolam (Xanax) 0.5 mg PO Q4H PRN; Protocol PRN Reason: Anxiety Last Admin: 10/27/16 21:40 Dose: 0.5 mg Alprazolam (Xanax) 0.5 mg PO STAT STA PRN Reason: Protocol Stop: 10/28/16 00:22 Aspirin (Ecotrin) 81 mg PO DAILY [facility] Metoprolol Tartrate (Lopressor) 12.5 mg PO BID [facility] Nicotine (Nicoderm Cq) 1 patch TD DAILY [facility] - Labs Labs: PT 10.6 Seconds (9.9-11.8) 10/27/16 17:00 INR 0.98 (0.93-1.08) 10/27/16 17:00 APTT 26.4 Seconds (23.7-30.8) 10/27/16 17:00 Most Recent Lab Values WBC 4.0 10^3/ul (4.5-11.0) L D 10/27/16 17:00 RBC 4.55 10^6/uL (3.5-6.1) 10/27/16 17:00 Hgb 14.2 g/dL (12.0-16.0) 10/27/16 17:00 Hct 41.7 % (36.0-48.0) 10/27/16 17:00 MCV 91.6 fl (80.0-105.0) 10/27/16 17:00 MCH 31.2 pg (25.0-35.0) 10/27/16 17:00 MCHC 34.1 g/dl (31.0-37.0) 10/27/16 17:00 RDW 13.5 % (11.5-14.5) 10/27/16 17:00 Plt Count 230 10^3/uL (120.0-450.0) 10/27/16 17:00 MPV 9.4 fl (7.0-11.0) 10/27/16 17:00 Gran % 56.1 % (50.0-68.0) 10/27/16 17:00 Lymph % (Auto) 34.0 % (22.0-35.0) 10/27/16 17:00 [place] % (Auto) 7.2 % (1.0-6.0) H 10/27/16 17:00 Eos % (Auto) 2.2 % (1.5-5.0) 10/27/16 17:00 Baso % (Auto) 0.5 % (0.0-3.0) 10/27/16 17:00 Gran # 2.26 (1.4-6.5) 10/27/16 17:00 Lymph # 1.4 (1.2-3.4) 10/27/16 17:00 [place] # 0.3 (0.1-0.6) 10/27/16 17:00 Eos # 0.1 (0.0-0.7) 10/27/16 17:00 Baso # 0.02 K/mm3 (0.0-2.0) 10/27/16 17:00 PT 10.6 Seconds (9.9-11.8) 10/27/16 17:00 INR 0.98 (0.93-1.08) 10/27/16 17:00 APTT 26.4 Seconds (23.7-30.8) 10/27/16 17:00 Sodium 142 mmol/L (132-148) 10/27/16 17:00 Potassium 4.6 mmol/L (3.6-5.0) 10/27/16 17:00 Chloride 103 mmol/L (98-107) 10/27/16 17:00 Carbon Dioxide 30 mmol/L (21-33) 10/27/16 17:00 Anion Gap 14 (10-20) 10/27/16 17:00 BUN 22 mg/dL (7-21) H 10/27/16 17:00 Creatinine 0.8 mg/dL (0.5-1.4) 10/27/16 17:00 Est GFR ( Amer) > 60 10/27/16 17:00 Est GFR (Non-Af Amer) > 60 10/27/16 17:00 Random Glucose 95 mg/dL (70-110) 10/27/16 17:00 Calcium 8.8 mg/dL (8.4-10.5) 10/27/16 17:00 Total Bilirubin 0.4 mg/dL (0.2-1.3) 10/27/16 17:00 AST 35 U/L (15-39) 10/27/16 17:00 ALT 42 U/L (7-56) 10/27/16 17:00 Alkaline Phosphatase 74 U/L (38-133) 10/27/16 17:00 Lactate Dehydrogenase 436 U/L (333-699) 10/27/16 17:00 Total Creatine Kinase 36 U/L (35-230) 10/27/16 17:00 Troponin I < 0.01 ng/mL 10/27/16 17:00 NT-Pro-B Natriuret Pep 179 pg/mL (0-450) 10/27/16 17:00 Total Protein 6.7 g/dL (5.8-8.3) 10/27/16 17:00 Albumin 3.9 g/dL (3.0-4.8) 10/27/16 17:00 Globulin 2.8 gm/dL 10/27/16 17:00 Albumin/Globulin Ratio 1.4 (1.1-1.8) 10/27/16 17:00 - Constitutional Appears: No Acute Distress, Other (Agitated.) - Head Exam Head Exam: ATRAUMATIC, NORMAL INSPECTION, NORMOCEPHALIC - Eye Exam Eye Exam: Normal appearance - ENT Exam ENT Exam: Normal External Ear Exam - Neck Exam Neck Exam: Normal Inspection - Respiratory Exam Respiratory Exam: NORMAL BREATHING PATTERN - Cardiovascular Exam Cardiovascular Exam: absent: JVD - GI/Abdominal Exam GI & Abdominal Exam: absent: Distended - Rectal Exam Rectal Exam: Deferred - Exam Additional comments: Deferred. - Extremities Exam Extremities Exam: Normal Inspection - Back Exam Back Exam: NORMAL INSPECTION - Neurological Exam Neurological Exam: Altered - Psychiatric Exam Psychiatric exam: Agitated - Skin Skin Exam: Normal Color Assessment and Plan - Assessment and Plan (Free Text) Assessment: Agitation. Dementia. COPD. HTN. Breast cancer. Plan: Xanax 0.5 mg PO stat. Patient was still agitated. Ativan 0.25 mg IV x 2 was given which seems to have helped somewhat. If continues to be agitated or gets worst may need ABG, CT Head. Will discuss with PMD prn. Continue present management.
--- NOTE | 2016-10-28 23:44 | CP.PCM.PN ---
Subjective - Date & Time of Evaluation Date of Evaluation: 10/28/16 Time of Evaluation: 23:44 - Subjective Subjective: Draft. CARLA restraint order. Objective - Vital Signs/Intake and Output Vital Signs (last 24 hours): Temp Pulse Resp BP Pulse Ox 98.3 F 79 20 107/66 98 10/28/16 16:33 10/28/16 18:00 10/28/16 16:33 10/28/16 17:50 10/27/16 23:32 - Medications Medications: Current Medications Alprazolam (Xanax) 0.5 mg PO BID [facility] PRN Reason: Protocol Last Admin: 10/28/16 17:50 Dose: 0.5 mg Alprazolam (Xanax) 0.5 mg PO Q4H PRN; Protocol PRN Reason: Anxiety Last Admin: 10/28/16 20:00 Dose: 0.5 mg Aspirin (Ecotrin) 81 mg PO DAILY [facility] Last Admin: 10/28/16 10:39 Dose: 81 mg Metoprolol Tartrate (Lopressor) 12.5 mg PO BID [facility] Last Admin: 10/28/16 17:50 Dose: Not Given Nicotine (Nicoderm Cq) 1 patch TD DAILY [facility] Last Admin: 10/28/16 10:39 Dose: 1 patch Risperidone (Risperdal Tab) 0.25 mg PO DAILY [facility] PRN Reason: Protocol Last Admin: 10/28/16 10:39 Dose: 0.25 mg - Labs Labs: PT 10.6 Seconds (9.9-11.8) 10/27/16 17:00 INR 0.98 (0.93-1.08) 10/27/16 17:00 APTT 26.4 Seconds (23.7-30.8) 10/27/16 17:00
--- NOTE | 2016-10-29 01:34 | CON ---
DATE: 10/28/2016 SUBJECTIVE: The patient is in room 262,, bed 2. REASON FOR CONSULTATION: Chest pain. HISTORY OF PRESENT ILLNESS: The patient is an 89-year-old female whose history is taken from the daughter because the patient is known to have dementia. Patient is a poor historian. According to the daughter, she was having intermittent chest pain since night before admission with nausea. Patient has history of COPD. She had breast surgery for malignancy, also has history of anxiety and was also with sinus tachycardia. Daughter also mentioned that she was told to have a stroke in the past and also heart attack. Patient now lying flat in bed without any chest pain or shortness of breath. PAST MEDICAL HISTORY: Positive for carcinoma of the breast, for which she had mastectomy, COPD, anxiety disorder, and sinus tachycardia. She was told to have a CVA and was told to have also [facility] as per daughter. PERSONAL HISTORY: Patient was still smoking until two weeks ago. No history of drinking. No allergies. MEDICATIONS: Patient's home medications included risperidone 0.5 mg b.i.d., Lopressor 25 mg b.i.d., Plavix 75 mg daily, Lipitor 10 mg daily, aspirin 81 mg daily, and Xanax 0.5 mg by mouth q.i.d. REVIEW OF SYSTEMS: All the systems reviewed, positive mentioned in history, otherwise negative. PHYSICAL EXAMINATION: VITAL SIGNS: Blood pressure 109/60, respiration 20, pulse 87, and temperature 97.4. HEENT: Head is normocephalic. Eyes, pupils are normal. Conjunctivae, are normal. Nose and throat normal. NECK: JVP normal. Carotids equal. Thorax AP diameter normal. LUNGS: Clear. HEART: S1, S2. ABDOMEN: Soft. No tenderness. No organomegaly. Bowels are normal. EXTREMITIES: No clubbing. No cyanosis. LABORATORY DATA: WBC 4.0, hemoglobin 14.2, hematocrit 41.7, platelet 230. Sodium 142, potassium 4.6, BUN 22, creatinine 0.8, troponin less than 0.01, total protein 6.7, albumin 3.9, NT-proBNP 179. Chest x-ray consistent with COPD. EKG showed regular sinus rhythm, right bundle branch block, ST-T changes. DIAGNOSES: Atypical chest pain, dementia, chronic obstructive pulmonary disease, history of cerebrovascular accident, history of myocardial infarction and remote myocardial infarction in the past as per daughter, anxiety disorder. PLAN: Review of records shows that patient had stress test on 03/12/2015, which showed ejection fraction of 75%. No ischemia was noted. Echo on 03/20/2015 showed normal LV size, normal LV systolic function, ejection fraction 65-70%, [id number] tricuspid regurgitation, RVSP 36. Plan is to repeat troponin. We will also check TSH and lipid profile and we will continue aspirin 81 mg daily, metoprolol 12.5 mg b.i.d., Risperdal 0.25 mg by mouth daily. We will check TSH and lipid profile and we will monitor the patient for any arrhythmia and we will follow with you. Angel Lomas MD [facility] # [id number]
--- NOTE | 2016-10-29 01:50 | CON ---
DATE: HISTORY OF PRESENT ILLNESS: This is an 89-year-old white female with past medical history of dementia and came to the emergency room that she was complaining of chest pain last night and patient's daughter also noted that patient had a stroke past year, and smoking 2 weeks ago pack a day and the patient is a very poor historian and does not know her whereabouts and called to evaluate to the patient. PAST MEDICAL HISTORY: Dementia. SOCIAL HISTORY: Smokes, does not drink. PHYSICAL EXAMINATION: HEENT: Normocephalic, atraumatic. NECK: Supple. NEUROLOGIC: Awake, oriented to self, not to the place. Cranial nerves II through XII were tested. Pupils reactive. EXTREMITIES: Spontaneous movement of the extremity noted. Deep tendon reflexes 1+. Both plantars are downgoing. Sensory appears intact. Cerebellar, gait deferred. LABORATORY DATA: WBC 4, hemoglobin 14.2, hematocrit 41.7, platelet 230. Sodium 142, potassium 4.6, chloride 103, CO2 30, glucose 95, BUN 22, creatinine 0.8. IMPRESSION: Dementia, intermittent confusional state, chest pain. Workup in progress. PLAN: We will do the CAT scan of the head without contrast and we will followup. Juancarlos Salamanca MD
--- NOTE | 2016-10-29 02:50 | CP.PCM.PN ---
Subjective - Date & Time of Evaluation Date of Evaluation: 10/29/16 Time of Evaluation: 02:49 - Subjective Subjective: Patient was seen for agitation. Earlier she received multiple meds to sedate her , still agitated and trying to get out of bed. Does not answer any questions when you ask her . Medical record was reviewed. 89 year old white woman was admitted with chest pain. PMH of HTN , Dementia, CVA , COPD, B/L cataract implants, right knee replacement, right mastectomy for breast cancer,former smoker. Objective - Vital Signs/Intake and Output Vital Signs (last 24 hours): Temp Pulse Resp BP Pulse Ox 97.7 F 76 20 133/69 98 10/29/16 00:01 10/29/16 00:01 10/29/16 00:01 10/29/16 00:01 10/27/16 23:32 - Medications Medications: Current Medications Alprazolam (Xanax) 0.5 mg PO BID [facility] PRN Reason: Protocol Last Admin: 10/28/16 17:50 Dose: 0.5 mg Alprazolam (Xanax) 0.5 mg PO Q4H PRN; Protocol PRN Reason: Anxiety Last Admin: 10/28/16 20:00 Dose: 0.5 mg Aspirin (Ecotrin) 81 mg PO DAILY [facility] Last Admin: 10/28/16 10:39 Dose: 81 mg Metoprolol Tartrate (Lopressor) 12.5 mg PO BID [facility] Last Admin: 10/28/16 17:50 Dose: Not Given Nicotine (Nicoderm Cq) 1 patch TD DAILY [facility] Last Admin: 10/28/16 10:39 Dose: 1 patch Risperidone (Risperdal Tab) 0.25 mg PO DAILY [facility] PRN Reason: Protocol Last Admin: 10/28/16 10:39 Dose: 0.25 mg - Labs Labs: PT 10.6 Seconds (9.9-11.8) 10/27/16 17:00 INR 0.98 (0.93-1.08) 10/27/16 17:00 APTT 26.4 Seconds (23.7-30.8) 10/27/16 17:00 - Constitutional Appears: No Acute Distress - Head Exam Head Exam: ATRAUMATIC, NORMAL INSPECTION, NORMOCEPHALIC - Eye Exam Eye Exam: Normal appearance - ENT Exam ENT Exam: Normal External Ear Exam - Neck Exam Neck Exam: Normal Inspection - Respiratory Exam Respiratory Exam: NORMAL BREATHING PATTERN - Cardiovascular Exam Cardiovascular Exam: absent: JVD - GI/Abdominal Exam GI & Abdominal Exam: absent: Distended - Rectal Exam Rectal Exam: Deferred - Exam Additional comments: Deferred. - Extremities Exam Extremities Exam: Normal Inspection - Back Exam Back Exam: NORMAL INSPECTION - Neurological Exam Neurological Exam: Altered - Psychiatric Exam Psychiatric exam: Agitated - Skin Skin Exam: Normal Color Assessment and Plan - Assessment and Plan (Free Text) Assessment: Agitation. Dementia. CVA. HTN. COPD. Breast cancer. Plan: Will apply CARLA VEST restraints. Continue present management.
--- NOTE | 2016-10-29 04:10 | PN ---
DATE: 10/28/2016 SUBJECTIVE: The patient was seen this Sunday morning in room 262, bed 2, resting in bed comfortable. She barely is able to recognize me, is groggy, sleepy, lethargic. She had a rough night, received some sedation, and is a bit sleepy this morning. She was able to sit up and eat, however, and tolerated food well. She reported the chest pain as the reason for her coming to the emergency room, but is relatively comfortable at this time, having received some sedation. PHYSICAL EXAMINATION: HEENT: Conjunctivae are pink. Mucous membranes moist. NECK: Supple. CARDIOPULMONARY: Regular, but not tachycardic. LUNGS: Decreased breath sounds and a prolonged expiratory phase typical of COPD. EXTREMITIES: Thin with no edema. ASSESSMENT AND PLAN: In view of the altered mental status and my suspicion for post infarct, worsening dementia, we will ask for neurology consultation and also because of the restlessness and agitation, add some Risperdal to her chronic anxiolytics of Xanax and ask psychiatry to see her. I spoke with the patient's daughter last night, we will add DO NOT RESUSCITATE order to the chart, so DNR/DNI is written as was the patient's wishes in past and with the family in agreement. We will follow closely. Kvng Kang MD
[2016-10-29 08:27] LABS: CHOLESTEROL 180 mg/dL (130-200)
[2016-10-29 08:41] LABS: TROPONIN I < 0.01 ng/mL
--- NOTE | 2016-10-29 10:51 | HP ---
CHIEF COMPLAINT: Chest pain, altered mental status, agitation. HISTORY OF PRESENT ILLNESS: This is an 89-year-old woman, whom I have known for many years. She is agoraphobic and lives in a quaint mobile home in the [address] at the [facility] in [place]. She has not gone out for several years after her 's . She is a chain smoker and recently hospitalized with a massive stroke and also recently hospitalized with chest pain. On the day of admission, the patient's daughter called for ambulance because the patient complained of a prior chest pain. Her daughter described that as a tightness in her chest different than pain she has complained of in the past. There was no associated palpitations or diaphoresis or pallor that daughter was able to notice. The patient had also been not her usual self, acting out more, quite a bit more restless and agitated and combative at times, again prompting her call to emergency services and the patient coming to the emergency room. PAST MEDICAL HISTORY: Significant for COPD and heavy smoker as noted above. Negative for hypertension, diabetes, hyperlipidemia, tuberculosis, asthma, seizures and gout. Positive for rather severe COPD, atherosclerotic cerebrovascular disease, and history of chest pains in the past. She also has history of breast cancer in 1968 and severe agoraphobia and anxiety as noted above. She was hospitalized overnight approximately 1 month ago for COPD, dehydration. She was in the ER earlier last month also for altered mental status. In March, she was hospitalized with the stroke as noted above. There were 4 hospitalizations in 2016 for anxiety, dizziness, and chest pain and several hospitalizations before that for anxiety and chest pain as well. Her last stress test was in March 2015 and before that in May of 2014, both were read as normal myocardial stress with good ejection fraction. PAST SURGICAL HISTORY: Positive for cholecystectomy in 1949, left-sided mastectomy in 1968 followed by radiation and chemotherapy. She had left knee surgery in the 1949s and a total knee replacement in July of 2002. She had ovarian cyst removed in 2004, a right inguinal hernia repaired in November 2005 and nerve entrapment, cyst removed from the right groin in March 2012. ALLERGIES: SHE HAS NO KNOWN ALLERGIES TO MEDICINE, BUT COMPLAINS THAT SSRI MEDICATIONS LEAVE HER "ZOMBIE LIKE." FAMILY HISTORY: Her mother lived a long life passing away at the age 83. Her father as well. She is #2 of 7 siblings. She has 5 brothers and 1 sister. She is a since June of 2007, when she lost her , Carloz, a Calli. She has 4 children, 3 are alive and well, 1 daughter and 2 sons, 1 at the age 19 with some drug-related overdose. SOCIAL HISTORY: After returning home from the stroke rehab program she lives at home in a [place] with her daughter. Her daughter, Alejandra, lives in [place] and has agreed now to stay with her. She continues to smoke, but has reduced to only a few cigarettes to half pack a day. She has smoked as much as 5 packs per day in the past according to her prior reports. She does not drink alcohol. She drinks 1 cup of coffee per day. Her last colonoscopy was in 2004. Her last mammogram was in 2012. She had a thallium stress test as mentioned above in 2010, 2014, and 2015. Dr. Lomas was her machine pan greaser for those tests. REVIEW OF SYSTEMS: Not possible because of the patient's confusional state and lethargy, and her restlessness makes it difficult at night. PHYSICAL EXAMINATION: GENERAL: In the emergency room, patient was a bit confused, restless, and agitated. The following morning after a difficult night she was sleepy and received some sedation. HEENT: Head and neck showed temporalis muscle waisting with a thin frame. Conjunctivae were pink. Mucous membranes were moist. SKIN: Shows discoloration of chronic tobacco use. NECK: Supple. No masses. There was no JVD. No bruits. Thyroid was not palpable. HEART: Regular, not tachycardiac. LUNGS: Shows decreased breath sounds with advanced COPD, but basically was clear with good aeration and prolonged expiratory phase. ABDOMEN: Thin and soft. EXTREMITIES: Thin with no edema. CHEST: Chest bhandari are nontender. There was no reproducible point tenderness. IMPRESSION: 1. Chest pain in a patient with multiple risk factors, coronary artery disease including atherosclerotic cerebrovascular disease, chronic obstructive pulmonary disease, and ongoing tobacco use. 2. Altered mental status. 3. 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 4. Chronic obstructive pulmonary disease. 5. Tobacco use disorder. 6. History of severe anxiety and agoraphobia. 7. History of elevated troponin. 8. Allergic to selective serotonin reuptake inhibitors in the past because it makes her, "zombie like state." 9. Status post knee replacement. 10. Status post mastectomy. 11. Status post cholecystectomy. 12. Status post cerebrovascular accident. PLAN: Patient was admitted in the evening after being seen by the emergency room and admitted to the telemetry unit. We will monitor her there. The case was discussed at great length with attending machine pan greaser, Dr. Lomas, who agrees with my concerns about her cardiac status. I spoke with the patient's daughter as well. We will also ask for Neurology and Psychiatry consultation in view of the mental status changes and how it may be related to the old stroke and past CVA. Kvng Kang MD
--- NOTE | 2016-10-29 12:11 | CON ---
HISTORY OF PRESENT ILLNESS: The patient is an 89-year-old female with multiple medical issues including dementia. The patient was brought in by her daughter for evaluation of possible chest pain. Psych consult was called for evaluation of change in mental changes, aggressive and agitated behavior. The patient tried to climb off the bed, needed to have waist Ruperto yesterday, has restless night. The patient was seen and examined today. The patient is status post Risperdal 0.25 mg as well as IV push, was on Ativan as well as Xanax. The patient is sleeping, but easily arousable. As per nursing report, the patient had sleepless night. The patient was not able to sleep at all. Dr. Finnegan and Dr. Kang was called frequently and the patient just fell asleep at 2 a.m. At the present moment, there is no meaningful conversation possible because the patient is opening her eyes and mumbling something incoherently. We tried to review previous history. The patient has never been evaluated by a psychiatric in the past, but was seen by a neurologist on 10/28. Dr. Kang saw the patient, notes reviewed as well. The patient is on DNI and DNR status. PHYSICAL EXAMINATION: VITAL SIGNS: This speech writer reviewed vital signs. Vital signs seems to be stable. Temperature is 97.8, pulse is 89, blood pressure 110/65, respirations 20 and saturation is 94%. MEDICATIONS: Reviewed. The patient is on Xanax 0.25 mg twice a day, we will try to decrease the dose; aspirin; Lopressor and Nicoderm. This speech writer discontinued Risperdal, started Seroquel 12.5 mg twice a day because this is more sedative. The patient also will have as needed medication Ativan. LABORATORY DATA: Reviewed. WBC 4.0, besides that the rest within normal limits. MENTAL STATUS EXAMINATION: As this speech writer described above, the patient is sleeping, easily arousable, opening her eyes, mumbling something and falling back asleep. There is no option to have meaningful conversation. Insight and judgement impaired. Impulses are not predictable. As per nursing staff, the patient was psychotic, disorganized, was looking for people who was not there. IMPRESSION: Most likely, the patient has delirium on dementia. The patient is officially diagnosed with dementia. Most likely this was behavioral disturbances delirium which is related to the medical issues. Please see note for more detailed information. PLAN: This speech writer made an adjustment of the medication, Xanax was decreased in dose, Risperdal was discontinued, Seroquel was stated 12.5 mg, twice a day schedule. Family needs to be involved. The patient is DNI and DNR. The patient needs to be as comfortable as possible. This speech writer will follow up and advise accordingly. Thank you very much for letting me to participate in the care of your patient. Hopefully, the patient will be doing much better on this combination of the meds. Trudy Morales MD
--- NOTE | 2016-10-29 13:40 | PN ---
DATE: 10/29/2016 SUBJECTIVE: The patient was seen this Sunday morning in room 262, bed 2. Again, she had a difficult night, was restless and agitated. Consult note by Dr. Salamanca is appreciating as well as note from Dr. Lomas. The patient was recently seen by Dr. Yates, a psychiatrist and I see that her meds were adjusted. Today, patient is more awake, recognizes me, but is still somewhat groggy or lethargic after a restless night, requiring some IV Ativan. She reports that the chest pain to be in the middle of the chest, pressure like symptoms, but says she is comfortable now. She is a poor historian and I cannot get a reliable history as to whether this pain is exertional. I think this is all because of the severity of her dementia. PHYSICAL EXAMINATION: LUNGS: Show good aeration in the right and left with marked COPD. EXTREMITIES: Thin with no edema. IMPRESSION: Hospitalization with chest pain in a patient with multiple risk factors. Cardiology will schedule echocardiogram for tomorrow. I will add some oral nitrates because of multiple risk factors and symptoms of typical angina. Dr. Lomas brings out that patient had a stress test in 2014 and 2015, but she continues to smoke on a regular basis. We will adjust the medicines, await cardiac workup. We will await further adjustments and medications from Dr. Yates as well as from Neurology. CT scan of the head was ordered and is pending. We will talk with the patient's family regarding further cardiac workup and as mentioned above I will add some nitrates to her beta-blockers for additional antianginal coverage. Kvng Kang MD [facility]
--- NOTE | 2016-10-29 15:56 | PN ---
DATE: 10/29/2016 LOCATION: The patient is in room 262, bed 2. REASON FOR CONSULTATION: Chest pain. HISTORY OF PRESENT ILLNESS: The patient is an 89-year-old admitted with history that she has dementia, COPD, she also had breast surgery for malignancy, history of anxiety and sinus tachycardia. Patient does not give much history, but daughter stated that she also had a stroke in the past and according to daughter patient complains of chest pain. Now, patient is lying flat in bed without any cardiac symptoms. No chest pain, shortness of breath or palpitation. Pain was dull to sharp and no history of exertional chest pain. PHYSICAL EXAMINATION: VITAL SIGNS: Blood pressure 97/63, respirations 20, pulse 104, and temperature 97.7. HEENT: Head is normocephalic. Eyes, pupils are normal. Conjunctivae normal. Nose and throat normal. NECK: JVP low. Carotids equal. Thorax, AP diameter normal. LUNGS: Clear. CARDIOVASCULAR: S1, S2. ABDOMEN: Soft. No tenderness. No organomegaly. Bowel sounds normal. EXTREMITIES: No clubbing. No cyanosis. LABORATORY DATA: Sodium 142, potassium 4.6, BUN 22, creatinine 0.8, troponin x2 negative. TSH 3.50, AST and ALT normal. WBC 4.0, hemoglobin 14.2, hematocrit 41.7, platelets 230. DIAGNOSES: Atypical chest pain, dementia, chronic obstructive pulmonary disease, history of cerebrovascular accident, remote history of myocardial infarction and in the past as per daughter anxiety disorder. PLAN: Patient's stress test 03/12/2015 was normal with ejection fraction of 75%. Echo on 03/20/2015 showed normal LV size, normal LV systolic function, ejection fraction 65%-70%, [id number] tricuspid regurgitation. Plan is patient is on metoprolol 12.5 mg b.i.d.,aspirin 81 mg daily, Risperdal 0.25 daily. We will increase metoprolol to 25 b.i.d. We will also echo Doppler study. We will follow with you. Angel Lomas MD
--- NOTE | 2016-10-30 00:55 | CP.PCM.PN ---
Subjective - Date & Time of Evaluation Date of Evaluation: 10/30/16 Time of Evaluation: 00:54 - Subjective Subjective: Patient was seen because it was requested to renew restraint order. Patient still becomes agitated sometimes. She is quiet now. Does not answer any of my questions. Medical record was reviewed. 89 year old white woman was admitted with chest pain. PMH of HTN , CVA , COPD, Dementia, B/L cataract implants, right knee replacement, right mastectomy for breast cancer,former smoker. Objective - Vital Signs/Intake and Output Vital Signs (last 24 hours): Temp Pulse Resp BP Pulse Ox 98.7 F 66 19 93/63 L 96 10/30/16 00:01 10/30/16 00:01 10/30/16 00:01 10/30/16 00:01 10/30/16 00:01 - Medications Medications: Current Medications Alprazolam (Xanax) 0.25 mg PO BID [facility] PRN Reason: Protocol Last Admin: 10/29/16 17:34 Dose: 0.25 mg Aspirin (Ecotrin) 81 mg PO DAILY [facility] Last Admin: 10/29/16 09:32 Dose: 81 mg Isosorbide Mononitrate (Imdur) 30 mg PO DAILY [facility] Last Admin: 10/29/16 12:00 Dose: Not Given Metoprolol Tartrate (Lopressor) 25 mg PO Q12 [facility] Last Admin: 10/29/16 21:34 Dose: 25 mg Nicotine (Nicoderm Cq) 1 patch TD DAILY [facility] Last Admin: 10/29/16 09:32 Dose: 1 patch Quetiapine Fumarate (Seroquel) 12.5 mg PO AMHS [facility] PRN Reason: Protocol Last Admin: 10/29/16 21:34 Dose: 12.5 mg - Labs Labs: PT 10.6 Seconds (9.9-11.8) 10/27/16 17:00 INR 0.98 (0.93-1.08) 10/27/16 17:00 APTT 26.4 Seconds (23.7-30.8) 10/27/16 17:00 Laboratory Last Values WBC 4.0 10^3/ul (4.5-11.0) L D 10/27/16 17:00 RBC 4.55 10^6/uL (3.5-6.1) 10/27/16 17:00 Hgb 14.2 g/dL (12.0-16.0) 10/27/16 17:00 Hct 41.7 % (36.0-48.0) 10/27/16 17:00 MCV 91.6 fl (80.0-105.0) 10/27/16 17:00 MCH 31.2 pg (25.0-35.0) 10/27/16 17:00 MCHC 34.1 g/dl (31.0-37.0) 10/27/16 17:00 RDW 13.5 % (11.5-14.5) 10/27/16 17:00 Plt Count 230 10^3/uL (120.0-450.0) 10/27/16 17:00 MPV 9.4 fl (7.0-11.0) 10/27/16 17:00 Gran % 56.1 % (50.0-68.0) 10/27/16 17:00 Lymph % (Auto) 34.0 % (22.0-35.0) 10/27/16 17:00 Edmunds % (Auto) 7.2 % (1.0-6.0) H 10/27/16 17:00 Eos % (Auto) 2.2 % (1.5-5.0) 10/27/16 17:00 Baso % (Auto) 0.5 % (0.0-3.0) 10/27/16 17:00 Gran # 2.26 (1.4-6.5) 10/27/16 17:00 Lymph # 1.4 (1.2-3.4) 10/27/16 17:00 Edmunds # 0.3 (0.1-0.6) 10/27/16 17:00 Eos # 0.1 (0.0-0.7) 10/27/16 17:00 Baso # 0.02 K/mm3 (0.0-2.0) 10/27/16 17:00 PT 10.6 Seconds (9.9-11.8) 10/27/16 17:00 INR 0.98 (0.93-1.08) 10/27/16 17:00 APTT 26.4 Seconds (23.7-30.8) 10/27/16 17:00 Sodium 142 mmol/L (132-148) 10/27/16 17:00 Potassium 4.6 mmol/L (3.6-5.0) 10/27/16 17:00 Chloride 103 mmol/L (98-107) 10/27/16 17:00 Carbon Dioxide 30 mmol/L (21-33) 10/27/16 17:00 Anion Gap 14 (10-20) 10/27/16 17:00 BUN 22 mg/dL (7-21) H 10/27/16 17:00 Creatinine 0.8 mg/dL (0.5-1.4) 10/27/16 17:00 Est GFR ( Amer) > 60 10/27/16 17:00 Est GFR (Non-Af Amer) > 60 10/27/16 17:00 Random Glucose 95 mg/dL (70-110) 10/27/16 17:00 Calcium 8.8 mg/dL (8.4-10.5) 10/27/16 17:00 Total Bilirubin 0.4 mg/dL (0.2-1.3) 10/27/16 17:00 AST 35 U/L (15-39) 10/27/16 17:00 ALT 42 U/L (7-56) 10/27/16 17:00 Alkaline Phosphatase 74 U/L (38-133) 10/27/16 17:00 Lactate Dehydrogenase 436 U/L (333-699) 10/27/16 17:00 Total Creatine Kinase 36 U/L (35-230) 10/27/16 17:00 Troponin I < 0.01 ng/mL 10/29/16 07:20 NT-Pro-B Natriuret Pep 179 pg/mL (0-450) 10/27/16 17:00 Total Protein 6.7 g/dL (5.8-8.3) 10/27/16 17:00 Albumin 3.9 g/dL (3.0-4.8) 10/27/16 17:00 Globulin 2.8 gm/dL 10/27/16 17:00 Albumin/Globulin Ratio 1.4 (1.1-1.8) 10/27/16 17:00 Triglycerides 71 mg/dL (35-160) 10/29/16 07:20 Cholesterol 180 mg/dL (130-200) 10/29/16 07:20 LDL Cholesterol Direct 114 mg/dL (0-129) 10/29/16 07:20 HDL Cholesterol 55 mg/dL (29-60) 10/29/16 07:20 TSH 3rd Generation 3.50 mIU/mL (0.46-4.68) 10/29/16 07:20 - Constitutional Appears: Well, No Acute Distress - Head Exam Head Exam: ATRAUMATIC, NORMAL INSPECTION, NORMOCEPHALIC - Eye Exam Eye Exam: Normal appearance - ENT Exam ENT Exam: Normal External Ear Exam - Neck Exam Neck Exam: Normal Inspection - Respiratory Exam Respiratory Exam: NORMAL BREATHING PATTERN - Cardiovascular Exam Cardiovascular Exam: absent: JVD - GI/Abdominal Exam GI & Abdominal Exam: absent: Distended - Rectal Exam Rectal Exam: Deferred - Exam Additional comments: Deferred. - Extremities Exam Extremities Exam: Normal Inspection - Back Exam Back Exam: NORMAL INSPECTION - Neurological Exam Neurological Exam: Alert, Altered - Psychiatric Exam Psychiatric exam: Anxious - Skin Skin Exam: Normal Color Assessment and Plan - Assessment and Plan (Free Text) Assessment: Agitation-Intermittent. HTN. COPD. Dementia. CVA Hx. Breast cancer Hx. Plan: VEST CARLA restraint was renewed. Continue present management.
[2016-10-30 06:57] LABS: BASO # 0.01 K/mm3 (0.0-2.0); BASO % 0.1 % (0.0-3.0); EOS % 0.1 % (1.5-5.0); GRAN # 7.12 (1.4-6.5); GRAN % 77.3 % (50.0-68.0); HEMATOCRIT 40.1 % (36.0-48.0); LYMPH # 1.5 (1.2-3.4); LYMPH % 15.9 % (22.0-35.0); MEAN CELL VOLUME 90.5 fl (80.0-105.0); MEAN CORPUSCULAR HEMOGLOBIN 31.2 pg (25.0-35.0); MEAN CORPUSCULAR HGB CONC 34.4 g/dl (31.0-37.0); MEAN PLATELET VOLUME 9.6 fl (7.0-11.0); MONO # 0.6 (0.1-0.6); MONO % 6.6 % (1.0-6.0); RED CELL DISTRIBUTION WIDTH 13.6 % (11.5-14.5); WHITE BLOOD COUNT 9.2 10^3/ul (4.5-11.0)
[2016-10-30 06:59] LABS: BLOOD UREA NITROGEN 14 mg/dL (7-21); CALCIUM 8.7 mg/dL (8.4-10.5); CARBON DIOXIDE 27 mmol/L (21-33); CHLORIDE 102 mmol/L (98-107); GFR AFRICAN-AMERICAN > 60; GLUCOSE,RANDOM 127 mg/dL (70-110); POTASSIUM 4.4 mmol/L (3.6-5.0); SODIUM 139 mmol/L (132-148)
--- NOTE | 2016-10-30 12:00 | CT ---
PROCEDURE: CT HEAD WITHOUT CONTRAST. HISTORY: ams COMPARISON: 09/24/2016 TECHNIQUE: Axial computed tomography images were obtained through the head/brain without intravenous contrast. Radiation dose: Total exam DLP = 690 mGy-cm. This CT exam was performed using one or more of the following dose reduction techniques: Automated exposure control, adjustment of the mA and/or kV according to patient size, and/or use of iterative reconstruction technique. FINDINGS: HEMORRHAGE: No intracranial hemorrhage. BRAIN: No mass effect or edema. There is a large area of encephalomalacia in the right hemisphere consistent with an old MCA distribution infarct. VENTRICLES: Unremarkable. No hydrocephalus. CALVARIUM: Unremarkable. PARANASAL SINUSES: Unremarkable as visualized. No significant inflammatory changes. MASTOID AIR CELLS: Unremarkable as visualized. No inflammatory changes. OTHER FINDINGS: None. IMPRESSION: Large old infarct in the right hemisphere. No acute intracranial findings
--- NOTE | 2016-10-30 13:33 | PN ---
HISTORY OF PRESENT ILLNESS: Shortly, the patient is an 89-year-old female with multiple medical problems. The patient also has dementia most likely vascular type. The patient was admitted on the medical side for evaluation of chest pain. Psych consult was called for altered mental status and periods of agitation. The patient was seen yesterday, medications adjusted, Risperdal was discontinued, Seroquel 12.5 mg was started twice a day, Xanax 0.25 mg a day also started. Based on reports, the patient still has periods of agitation, but much common. This blog writer attempted to speak to the patient, but the patient is deeply sleeping, easily arousable, opening her eyes, but falling back asleep again. PHYSICAL EXAMINATION: VITAL SIGNS: This blog writer reviewed vital signs. Vital signs seems to be stable. Temperature 98.6, pulse is 79, blood pressure 99/64, respirations 19, oxygen saturation is 93%. MEDICATIONS: Reviewed. The patient is Xanax 0.25 mg twice a day scheduled, aspirin, Imdur, Lopressor 25 mg q. 12 hours, Nicoderm, and Seroquel 12.5 mg twice a day in the morning time and the nighttime. LABORATORY DATA: Labs reviewed, most recent ones from yesterday, reports reviewed. The patient was seen by Dr. Lomas, aquatics specialist. Notes from primary care physician reviewed. MENTAL STATUS EXAMINATION: Was not able to be performed because the patient was deeply sleeping, but as per report, the patient is psychotic, looking for some Quin, nobody knows who Quin is. IMPRESSION: Altered mental status most likely related to delirium stage plus dementia. Please see our medical team notes for more detailed information. PLAN: Continue current management. Continue current medication. As per Dr. Kang, the patient was more alert and was able to recognize him, seems to have some improvement in her mental status. As of now, we will continue Seroquel 12.5 mg twice a day, Xanax 0.25 mg twice a day and the rest of the medication. Family involvement. This blog writer will follow up on this patient tomorrow and advise accordingly. Thank you very much for letting me participate in the care of your patient. Trudy Morales MD [facility] # [id number]
[2016-10-30] MEDS ORDERED: Sodium Chloride 0.9% 1,000 ML IV STA (17:40)
[2016-10-30 17:42] LABS: ARTERIAL BLOOD GAS HCO3 24.6 mmol/L (21-28); ARTERIAL BLOOD GAS O2 CAPACITY 16.3 mL/dl (16-24); ARTERIAL BLOOD GAS PH 7.42 (7.35-7.45); ARTERIAL BLOOD HGB O2 SAT 95.3 % (95.0-98.0); HHB 1.7 % (0-5); METHEMOGLOBIN 1.1 % (0.0-3.0)
[2016-10-30 17:43] LABS: CARBOXYHEMOGLOBIN 1.9 % (0.5-1.5)
--- NOTE | 2016-10-30 17:46 | PCM.RRTMUL ---
<Daria Caicedo - Last Filed: 10/30/16 17:47> WEIGHT INSPECTOR Nurse Assessment - Situation Date: 10/30/16 WEIGHT INSPECTOR Responder Arrival Time:: 05:24 Location:: Room Number:: 262-2 WEIGHT INSPECTOR Reason for Call: Hypotension WEIGHT INSPECTOR Called By: RN - IV IV Inserted during WEIGHT INSPECTOR?: No IV Fluids Initiated During WEIGHT INSPECTOR?: ns@1L - Respiratory Oxygen Delivery Method:: Room Air Received Nebulizer Treatments:: No Was the Patient Ventilated with Bag/Mask 100% O2?: No Secretions Suctioned?: No Was the Patient Intubated?: No Was the Patient Placed on a Ventilator?: No - Medication Medications Administered During WEIGHT INSPECTOR :: Zosyn - Diagnostic Test Ordered EKG:: Yes (NSR@82, rbb, old septal infarct with undetermined age. ) Chest X-Ray:: Yes CT Scan:: No - Stat Labs Ordered WEIGHT INSPECTOR Stat Labs Ordered:: CBC, BMP, LACTIC ACID, BLOOD C&S X2, ABG CPR started during WEIGHT INSPECTOR?: No - Vital Signs Temperature: 98.5 F Pulse Rate: 94 Respiratory Rate: 10 Blood Pressure: 68/34 (Initial) Oxygen Saturation: 94 (Room air) - Finger Stick Blood Glucose Finger Stick Blood Glucose: 365 - [place] Coma Scale Coma Scale Eye Opening:: Spontaneous Coma Scale Motor:: Obeys Commands Movement Coma Scale Verbal:: Confused/able to answer (baseline) Coma Scale Total:: 14 - Sepsis Screen Part 1 Sepsis Screen Part 1: Hypotensive - Time WEIGHT INSPECTOR Ended Time WEIGHT INSPECTOR Ended:: 17:45 - Vital Signs at end of WEIGHT INSPECTOR Blood Pressure:: 90/43 Pulse Rate:: 74 Respiratory Rate:: 10 Temperature:: 98.5 F O2 Sat by Pulse Oximetry:: 98 (On 2 litters) - Recommendations 5) WEIGHT INSPECTOR Level of Care Recommendations: Remain in current setting 6) Notifications: Attending Physician (Dr Anderson left a message for Dr Kang to call back. ) <Julia Anderson - Last Filed: 10/30/16 18:43> Attending/Attestation - Attestation I have personally seen and examined this patient.: Yes I have fully participated in the care of the patient.: Yes I have reviewed all pertinent clinical information, including history, physical exam and plan: Yes Notes (Text): 10/30/16 18:34 In addition to above tests,U/A & c&s was ordered. Also a message was left for Dr Kang,he called back, CAT scan of the abdomen is to be done with no contrast. In addition ,ordered Cardiac enzymes.
--- NOTE | 2016-10-30 17:52 | CARD ---
APPROVED REPORT EKG Measurement Heart [id number] <Conclusion> Normal sinus rhythm Right bundle branch block Septal infarct, age undetermined Abnormal ECG
--- NOTE | 2016-10-30 18:26 | RAD ---
HISTORY: Post [employer] COMPARISON: Chest x-ray performed 10/27/16 TECHNIQUE: Chest, one view. FINDINGS: LUNGS: Hyperinflation may be seen in the setting of COPD. Medial left lower lobe atelectasis/ infiltrate. 2 probable calcified granulomas at the right lung base. PLEURA: No significant pleural effusion identified. No definite pneumothorax . CARDIOVASCULAR: Heart size appears within normal limits. Atherosclerotic calcifications of the aorta. OSSEOUS STRUCTURES: Osseous demineralization. Degenerative changes. VISUALIZED UPPER ABDOMEN: Unremarkable. OTHER FINDINGS: None. IMPRESSION: Hyperinflation may be seen in the setting of COPD. Medial left lower lobe atelectasis/ infiltrate. 2 probable calcified granulomas at the right lung base.
[2016-10-30 18:34] LABS: BASO # 0.01 K/mm3 (0.0-2.0); BASO % 0.1 % (0.0-3.0); GRAN # 6.51 (1.4-6.5); GRAN % 84.7 % (50.0-68.0); HEMATOCRIT 31.8 % (36.0-48.0); LYMPH # 0.7 (1.2-3.4); LYMPH % 9.5 % (22.0-35.0); MEAN CELL VOLUME 89.8 fl (80.0-105.0); MEAN CORPUSCULAR HEMOGLOBIN 30.5 pg (25.0-35.0); MEAN PLATELET VOLUME 9.2 fl (7.0-11.0); MONO # 0.4 (0.1-0.6); MONO % 5.7 % (1.0-6.0); RED CELL DISTRIBUTION WIDTH 13.1 % (11.5-14.5); WHITE BLOOD COUNT 7.7 10^3/ul (4.5-11.0)
[2016-10-30 18:37] LABS: PH,URINE 6.5 (4.7-8.0); URINE BILIRUBIN NEGATIVE (NEGATIVE); URINE BLOOD NEGATIVE (NEGATIVE); URINE GLUCOSE (UA) 100 mg/dL (NEGATIVE); URINE KETONE NEGATIVE (NEGATIVE); URINE LEUKOCYTE ESTERASE NEGATIVE Leu/uL (NEGATIVE); URINE PROTEIN NEGATIVE mg/dL (<30 mg/dL)
[2016-10-30 18:38] LABS: URINE APPEARANCE CLEAR (CLEAR); URINE COLOR YELLOW (YELLOW)
[2016-10-30 18:40] LABS: ALB/GLOB RATIO 1.2 (1.1-1.8); ALKALINE PHOSPHATASE 55 U/L (38-133); ALT/SGPT 29 U/L (7-56); AST/SGOT 19 U/L (15-39); BILIRUBIN,TOTAL 0.6 mg/dL (0.2-1.3); BLOOD UREA NITROGEN 24 mg/dL (7-21); CALCIUM 7.6 mg/dL (8.4-10.5); CARBON DIOXIDE 23 mmol/L (21-33); CHLORIDE 104 mmol/L (98-107); GFR AFRICAN-AMERICAN > 60; GLUCOSE,RANDOM 140 mg/dL (70-110); POTASSIUM 3.9 mmol/L (3.6-5.0); SODIUM 136 mmol/L (132-148); TOTAL PROTEIN 5.3 g/dL (5.8-8.3)
[2016-10-30] MEDS: Piperacillin/Tazobact 2.25gm 2.25 GM/100 ML BAG IVPB SCH (19:01)
--- NOTE | 2016-10-30 19:20 | CARD ---
APPROVED REPORT EXAM: Two-dimensional and M-mode echocardiogram with Doppler and color Doppler. INDICATION Chest Pain 2D DIMENSIONS IVSd0.7 (0.7-1.1cm)LVDd3.1 (3.9-5.9cm) PWd1.0 (0.7-1.1cm)LVDs1.9 (2.5-4.0cm) FS (%) 37.8 %LVEF (%)69.5 (>50%) M-Mode DIMENSIONS Aortic Root2.60 (2.2-3.7cm)Aortic Cusp Exc.1.40 (1.5-2.0cm) Aortic Valve AoV Peak Oaitaexv352.0cm/Gianni Peak GR.8mmHg Mitral Valve E/A ratio0.0 TDI E/Lateral E'0.0E/Medial E'0.0 Pulmonary Valve PV Peak Gbrpqydr63.2cm/sPV Peak Grad.4mmHg Tricuspid Valve TR Peak [id number]/sRAP [id number] Peak Gr.43mmHg [id number] LEFT VENTRICLE The left ventricle is normal size. There is normal left ventricular wall thickness. The left ventricular function is normal. The left ventricular ejection fraction is within the normal range. LV Ej.Fr: 70%. RIGHT VENTRICLE The right ventricle is normal size. The right ventricular systolic function is normal. ATRIA The left atrium size is normal. The right atrium size is normal. AORTIC VALVE Aortic Valve Shows Calcification But Opening is Normal. MITRAL VALVE Mitral Valve is Thickened. Mitral Valve Opening Normal. Mitral Annulus Calcification. TRICUSPID VALVE The tricuspid valve is normal in structure. There is moderate to severe tricuspid regurgitation. RVSP: 53mm Hg. Moderate Pulmonary Hypertension. GREAT VESSELS The aortic root is normal in size. PERICARDIAL EFFUSION There is no pericardial effusion. <Conclusion> The left ventricle is normal size. There is normal left ventricular wall thickness. The left ventricular function is normal. The left ventricular ejection fraction is within the normal range. LV Ej.Fr: 70%. Aortic Valve Shows Calcification But Opening is Normal. Mitral Valve is Thickened. Mitral Valve Opening Normal. Mitral Annulus Calcification. The tricuspid valve is normal in structure. There is moderate to severe tricuspid regurgitation. RVSP: 53mm Hg. Moderate Pulmonary Hypertension.
--- NOTE | 2016-10-30 20:30 | CT ---
EXAM: CT Abdomen and Pelvis Without Intravenous Contrast EXAM DATE/TIME: 10/30/2016 6:38 PM CLINICAL HISTORY: The patient age is 89 years old and is female; Pain; Abdominal pain; Generalized; Additional info: Abdominal difuse pain Facility exam id and description: Ct abdpelscon abd pelvis w/o po or iv cont TECHNIQUE: Axial computed tomography images of the abdomen and pelvis without intravenous contrast. All CT scans at this facility use one or more dose reduction techniques, viz.: automated exposure control; ma/kV adjustment per patient size (including targeted exams where dose is matched to indication; i.e. head); or iterative reconstruction technique. Coronal and sagittal reformatted images were created and reviewed. COMPARISON: CT - ABD PELVIS W/O PO OR IV CONT 03/31/2016 4:39:31 PM FINDINGS: Lower thorax: A new consolidation is identified within the left lower lobe, suggestive of atelectatic change or infiltrate. Additional atelectatic changes are identified within the lung bases posteriorly and bilaterally. Within the right lower lobe of the lung, there is a 5 mm calcified nodule/granuloma. ABDOMEN: Liver: Unremarkable. No mass. Gallbladder and bile ducts: Biliary dilatation is again visualized. The common bile duct measures 1 cm in diameter. A cholecystectomy clip is visualized. Pancreas: Calcifications are visualized within the pancreas, consistent with chronic pancreatitis. There is no acute peripancreatic stranding. Spleen: No splenomegaly. Adrenals: No mass. Kidneys and ureters: There is bilateral renal pelviectasis, without an obstructing calculus. Stomach and bowel: There is fecal distention of the rectum. Presacral swelling is identified, which is posterior to the distal sigmoid colon. Colitis is considered, but there is no visualized wall thickening. This is a progression. Appendix: The appendix is not visualized. PELVIS: Bladder: No stones. Reproductive: Multiple calcifications are again seen within the uterus, consistent with fibroids. The largest measures 1.3 x 0.9 cm. ABDOMEN and PELVIS: Intraperitoneal space: No free air. Bones/joints: Hypertrophic degenerative changes are noted within the spine. Osteopenia. There is levoscoliosis of the lumbar spine. Vasculature: There is atherosclerotic calcification of the abdominal aorta. Calcified phleboliths are identified within the pelvis. No abdominal aortic aneurysm. Lymph nodes: There is no significant retroperitoneal or intrapelvic lymphadenopathy. IMPRESSION: 1. A new consolidation is identified within the left lower lobe, suggestive of atelectatic change or infiltrate. Additional atelectatic changes are identified within the lung bases posteriorly and bilaterally. Clinical correlation and follow-up CT are recommended. 2. There is fecal distention of the rectum. Presacral swelling is identified, which is posterior to the distal sigmoid colon. Colitis is considered, but there is no visualized wall thickening. This is a progression. 3. Biliary dilatation is again visualized. The common bile duct measures 1 cm in diameter. Cholecystectomy. Correlation with serum bilirubin is recommended. 4. There is bilateral renal pelviectasis, without an obstructing calculus. 5. Calcifications are visualized within the pancreas, consistent with chronic pancreatitis. There is no acute peripancreatic stranding. 6. Multiple calcifications are again seen within the uterus, consistent with fibroids. 7. Additional CT findings described above.
[2016-10-30 20:38] LABS: TROPONIN I < 0.01 ng/mL
--- NOTE | 2016-10-30 20:59 | PN ---
DATE: 10/30/2016 LOCATION: The patient is in room 262, bed 2. REASON FOR CONSULTATION: Chest pain. SUBJECTIVE: The patient has COPD and also in the past was told has some element of dementia, breast surgery for malignancy, history of anxiety, and sinus tachycardia. The patient admitted with chest pain. According to the daughter, the patient also had a stroke in the past. The patient is lying flat in bed without any chest pain or palpitation, but she stated that she has slight shortness of breath this morning, but now she is much better. PHYSICAL EXAMINATION: VITAL SIGNS: Blood pressure 101/54, respirations 19, pulse 82, and temperature 98.6. HEENT: Head is normocephalic. Eyes, pupils are normal. Conjunctivae normal. Nose and throat normal. NECK: JVP low. Carotids equal. THORAX: AP diameter normal. LUNGS: No significant rales. CARDIOVASCULAR: S1 and S2. ABDOMEN: Soft. No tenderness. No organomegaly. Bowel sounds normal. EXTREMITIES: No clubbing. No cyanosis. DIAGNOSES: Atypical chest pain, chronic obstructive pulmonary disease, episode of shortness of breath this morning, severe dementia, history of cerebrovascular accident, remote history of myocardial infarction in the past as per daughter, anxiety disorder. PLAN: This patient had echocardiogram done today. We will check the echo and see how the LV function is and then we will decide further workup like stress test. Echo in the past, on 03/20/2015, showed ejection fraction 65%-70%, [id number] tricuspid regurgitation. We will continue present therapy. We will review the echo, and we will decide for further workup. Angel Lomas MD
[2016-10-30] MEDS ORDERED: Sodium Chloride 0.9% 1,000 ML IV SCH (21:45)
[2016-10-31] MEDS: Piperacillin/Tazobact 2.25gm 2.25 GM/100 ML BAG IVPB SCH (00:05)
--- NOTE | 2016-10-31 05:42 | CP.PCM.PN ---
Subjective - Date & Time of Evaluation Date of Evaluation: 10/31/16 Time of Evaluation: 05:39 - Subjective Subjective: It was requested to renew CARLA VEST restraint order. F/U of labs from [facility] yesterday showed that there is some drop in H & H. Though , patient has received 2 litre of IV fluid. Has no complaints. When I saw her, she was trying to climb on the side rail. Medical record was reviewed. 89 year old white woman was admitted with chest pain. PMH of COPD, HTN , Dementia, CVA , B/L cataract implants, right knee replacement, right mastectomy for breast cancer,former smoker. Objective - Vital Signs/Intake and Output Vital Signs (last 24 hours): Temp Pulse Resp BP Pulse Ox 98.8 F 72 20 89/45 L 93 L 10/31/16 00:01 10/31/16 02:00 10/31/16 00:01 10/31/16 00:01 10/30/16 06:00 - Medications Medications: Current Medications Alprazolam (Xanax) 0.25 mg PO BID [facility] PRN Reason: Protocol Last Admin: 10/30/16 18:56 Dose: Not Given Aspirin (Ecotrin) 81 mg PO DAILY [facility] Last Admin: 10/30/16 11:51 Dose: 81 mg Sodium Chloride (Sodium Chloride 0.9%) 1,000 mls @ 100 mls/hr IV .Q10H [facility] Last Admin: 10/30/16 22:24 Dose: 100 mls/hr Isosorbide Mononitrate (Imdur) 30 mg PO DAILY [facility] Last Admin: 10/30/16 10:07 Dose: 30 mg Metoprolol Tartrate (Lopressor) 25 mg PO Q12 [facility] Last Admin: 10/30/16 22:24 Dose: Not Given Nicotine (Nicoderm Cq) 1 patch TD DAILY [facility] Last Admin: 10/30/16 10:08 Dose: 1 patch Quetiapine Fumarate (Seroquel) 12.5 mg PO AMHS [facility] PRN Reason: Protocol Last Admin: 10/30/16 22:09 Dose: 12.5 mg - Labs Labs: 10/30/16 18:20 10/30/16 18:20 PT 10.6 Seconds (9.9-11.8) 10/27/16 17:00 INR 0.98 (0.93-1.08) 10/27/16 17:00 APTT 26.4 Seconds (23.7-30.8) 10/27/16 17:00 - Constitutional Appears: Well, No Acute Distress - Head Exam Head Exam: ATRAUMATIC, NORMAL INSPECTION, NORMOCEPHALIC - Eye Exam Pupil Exam: NORMAL ACCOMODATION - ENT Exam ENT Exam: Normal External Ear Exam - Neck Exam Neck Exam: Normal Inspection - Respiratory Exam Respiratory Exam: NORMAL BREATHING PATTERN - Cardiovascular Exam Cardiovascular Exam: absent: JVD - GI/Abdominal Exam GI & Abdominal Exam: absent: Distended - Rectal Exam Rectal Exam: Deferred - Exam Additional comments: Deferred. - Extremities Exam Extremities Exam: Normal Inspection - Back Exam Back Exam: NORMAL INSPECTION - Neurological Exam Neurological Exam: Altered - Psychiatric Exam Psychiatric exam: Agitated - Skin Skin Exam: Normal Color Assessment and Plan - Assessment and Plan (Free Text) Assessment: Intermittent agitation. Drop in H & H-Dilution. COPD. HTN. Dementia. Breast cancer. Plan: POSET VEST restraint renewed. Continue present management.
[2016-10-31 09:09] LABS: BASO # 0.01 K/mm3 (0.0-2.0); BASO % 0.1 % (0.0-3.0); EOS % 0.1 % (1.5-5.0); GRAN # 7.89 (1.4-6.5); GRAN % 84.5 % (50.0-68.0); HEMATOCRIT 33.5 % (36.0-48.0); LYMPH % 10.3 % (22.0-35.0); MEAN CELL VOLUME 89.6 fl (80.0-105.0); MEAN CORPUSCULAR HEMOGLOBIN 30.7 pg (25.0-35.0); MEAN CORPUSCULAR HGB CONC 34.3 g/dl (31.0-37.0); MEAN PLATELET VOLUME 8.9 fl (7.0-11.0); MONO # 0.5 (0.1-0.6); RED CELL DISTRIBUTION WIDTH 13.2 % (11.5-14.5); WHITE BLOOD COUNT 9.3 10^3/ul (4.5-11.0)
[2016-10-31 09:15] LABS: BLOOD UREA NITROGEN 12 mg/dL (7-21); CARBON DIOXIDE 24 mmol/L (21-33); CHLORIDE 108 mmol/L (98-107); GFR AFRICAN-AMERICAN > 60; GLUCOSE,RANDOM 122 mg/dL (70-110); POTASSIUM 3.8 mmol/L (3.6-5.0); SODIUM 142 mmol/L (132-148)
[2016-10-31 09:27] LABS: TROPONIN I < 0.01 ng/mL
[2016-10-31] MEDS ORDERED: Potassium Chloride 20 mEq ER Tab PO ONE (10:24)
[2016-10-31] MEDS: POLYETHYLENE GLYCOL 3350 17 GM/Dose PACKET PO SCH (10:36)
--- NOTE | 2016-10-31 17:58 | PN ---
DATE: 10/31/2016 REASON FOR THE CONSULTATION AND FOLLOWUP: Chest pain. SUBJECTIVE: The patient is lying flat in the bed. Denies any chest pain, on [place] restraint. OBJECTIVE: GENERAL: Lying in the bed, not in apparent distress, on [place] restraint. VITAL SIGNS: Temperature afebrile, heart rate 72, blood pressure 162/95. HEENT: PERRLA. Extraocular muscles intact. NECK: Supple. No carotid bruit or thyromegaly. CHEST: Clear to auscultation. HEART: S1 and S2, regular. ABDOMEN: Soft. EXTREMITIES: Clubbing and cyanosis negative. LABORATORY DATA: Blood workup as follows: WBC 9.3, hemoglobin 11.3, hematocrit 33.5, platelet count 200. Chemistry showed sodium 148, potassium 3.8, chloride 108, carbon dioxide 24, anion gap of 12, BUN , creatinine 0.7, random sugar 122. Troponin is 0.01. IMPRESSION AND PLAN: An 89-year-old female with past medical history of chronic obstructive pulmonary disease, some element of dementia, surgery for breast carcinoma, history of anxiety disorder, sinus tachycardia, admitted with atypical chest pain. So far, no evidence of acute myocardial infarction. Echocardiography done yesterday does show ejection fraction 70%, [id number] tricuspid regurgitation, right ventricular systolic pressure of 53, consistent with moderate pulmonary hypertension, calcified aortic valve with open is a comorbidity, we will treat the patient conservatively. So far, no evidence of acute myocardial infarction. We will continue metoprolol and continue nicotine patch for smoking cessation and continue Xanax. We will take the blood pressure orthostatic. If it remained stable, we will discontinue telemetry in the next 24 hours. So far, no evidence of acute myocardial infarction. We will follow with you. We will put p.r.n. hydralazine for blood pressure more than 170. We will supplement potassium also. Angel Prieto MD
--- NOTE | 2016-10-31 19:29 | CP.PCM.PN ---
<Arnold Deleon - Last Filed: 10/31/16 19:24> Subjective - Date & Time of Evaluation Date of Evaluation: 10/31/16 Time of Evaluation: 09:20 - Subjective Subjective: Neurology Progress Note for Dr. Salamanca Service Patient seen and examined at bedside. No acute events reported overnight, but patient was documented as confused several times, and after attempting to climb out of bed, minal vest restraint was ordered. Minal remains today, as patient remains confused. Minimal ROS obtainable, patient initially able to answer several ROS yes/no questions, but rapidly became progressively confused, babbling incoherently. No following commands for exam, not able to answer any questions pertaining to orientation. Objective - Vital Signs/Intake and Output Vital Signs (last 24 hours): Temp Pulse Resp BP Pulse Ox 98.8 F 90 20 90/47 L 95 10/31/16 17:38 10/31/16 17:38 10/31/16 17:38 10/31/16 17:38 10/31/16 06:00 Intake and Output: 10/31/16 11/01/16 18:59 06:59 Intake Total 360 Output Total 500 Balance -140 - Medications Medications: Current Medications Alprazolam (Xanax) 0.25 mg PO BID [facility] PRN Reason: Protocol Last Admin: 10/31/16 18:31 Dose: 0.25 mg Aspirin (Ecotrin) 81 mg PO DAILY [facility] Last Admin: 10/31/16 10:36 Dose: 81 mg Docusate Sodium (Colace) 100 mg PO BID [facility] Last Admin: 10/31/16 18:31 Dose: 100 mg Metoprolol Tartrate (Lopressor) 12.5 mg PO Q12 [facility] Polyethylene Glycol (Miralax) 17 gm PO DAILY [facility] Last Admin: 10/31/16 10:36 Dose: 17 gm Quetiapine Fumarate (Seroquel) 12.5 mg PO HS [facility] PRN Reason: Protocol Thiamine HCl (Vitamin B1 Tab) 100 mg PO BID [facility] Last Admin: 10/31/16 18:31 Dose: 100 mg - Labs Labs: 10/31/16 08:50 10/31/16 08:50 PT 10.6 Seconds (9.9-11.8) 10/27/16 17:00 INR 0.98 (0.93-1.08) 10/27/16 17:00 APTT 26.4 Seconds (23.7-30.8) 10/27/16 17:00 - Constitutional Appears: Non-toxic, No Acute Distress, Chronically Ill - Head Exam Head Exam: ATRAUMATIC, NORMAL INSPECTION, NORMOCEPHALIC - Eye Exam Eye Exam: EOMI (not following commands for EOMI, but does move eyes in multiple directions to avoid direct light challenge during PERRL testing, and does track staff throughout room), Normal appearance, PERRL. absent: Conjunctival injection, Scleral icterus Pupil Exam: NORMAL ACCOMODATION, PERRL. absent: Fixed, Irregular, Unequal - ENT Exam ENT Exam: Mucous Membranes Moist - Neck Exam Neck Exam: Full ROM - Respiratory Exam Respiratory Exam: Clear to Ausculation Bilateral, NORMAL BREATHING PATTERN. absent: Accessory Muscle Use, Chest Wall Tenderness, Decreased Breath Sounds, Rales, Rhonchi, Wheezes - Cardiovascular Exam Cardiovascular Exam: REGULAR RHYTHM, RRR, +S1, +S2. absent: Bradycardia, Tachycardia, JVD, +S4 - GI/Abdominal Exam GI & Abdominal Exam: Soft, Normal Bowel Sounds. absent: Distended, Firm, Rigid , Diminished Bowel Sounds, Hyperactive Bowel Sounds, Hypoactive Bowel Sounds - Extremities Exam Extremities Exam: absent: Joint Swelling, Pedal Edema - Neurological Exam Additional comments: Sleeping but easily arousable, awake and alert, but not following commands, minimal spontaneous movements - Psychiatric Exam Additional comments: Not oriented, babbling/illogical speech, not grossly anxious/agitated - Skin Skin Exam: Dry, Intact, Normal Color, Warm Assessment and Plan - Assessment and Plan (Free Text) Assessment: This is an 89 yo F with PMH of Dementia, CVA, COPD, HTN , B/L cataract implants, right knee replacement, and breast Ca s/p right mastectomy who presented to [facility] for chest pain. Multifactorial AMS: Features of post-infarction dementia given encephalomalacia in R-MCA territory on CT head, behavioral disturbances and delirium components present, and transient cerebral hypoperfusion aggravating delirium. Plan: 1) Thiamine 100mg PO BID 2) Seroquel increased to 25mg PO HS if ok with Psych 3) Avoid hypotension, maintain SBP > 130 4) Delirium precautions, avoid nighttime interruptions, frequent daytime reorientations 5) Avoid highly sedating meds 6) ASA 81mg PO daily for stroke prevention 7) f/u with Psych for agitation Patient seen, reviewed, and discussed with attending, Dr. Mariia Salamanca. Please reconsult if patient experiences any changes <Vitaliy Salamanca - Last Filed: 11/01/16 11:15> Objective - Vital Signs/Intake and Output Vital Signs (last 24 hours): Temp Pulse Resp BP Pulse Ox 98.7 F 86 19 110/57 L 97 11/01/16 06:00 11/01/16 10:10 11/01/16 06:00 11/01/16 10:10 11/01/16 06:00 Intake and Output: 11/01/16 11/01/16 06:59 18:59 Intake Total 120 Output Total 450 Balance -330 - Medications Medications: Current Medications Alprazolam (Xanax) 0.25 mg PO BID [facility] PRN Reason: Protocol Last Admin: 11/01/16 10:10 Dose: 0.25 mg Aspirin (Ecotrin) 81 mg PO DAILY [facility] Last Admin: 11/01/16 10:09 Dose: 81 mg Docusate Sodium (Colace) 100 mg PO BID [facility] Last Admin: 11/01/16 10:10 Dose: 100 mg Hydralazine HCl (Apresoline) 10 mg PO QID PRN PRN Reason: for SBP > 170 Metoprolol Tartrate (Lopressor) 12.5 mg PO Q12 [facility] Last Admin: 11/01/16 10:10 Dose: 12.5 mg Polyethylene Glycol (Miralax) 17 gm PO DAILY [facility] Last Admin: 11/01/16 10:11 Dose: 17 gm Quetiapine Fumarate (Seroquel) 12.5 mg PO HS [facility] PRN Reason: Protocol Last Admin: 10/31/16 21:25 Dose: 12.5 mg Thiamine HCl (Vitamin B1 Tab) 100 mg PO BID [facility] Last Admin: 11/01/16 10:11 Dose: 100 mg - Labs Labs: 10/31/16 08:50 10/31/16 08:50 PT 10.6 Seconds (9.9-11.8) 10/27/16 17:00 INR 0.98 (0.93-1.08) 10/27/16 17:00 APTT 26.4 Seconds (23.7-30.8) 10/27/16 17:00 Attending/Attestation - Attestation I have personally seen and examined this patient.: Yes I have fully participated in the care of the patient.: Yes I have reviewed all pertinent clinical information, including history, physical exam and plan: Yes
--- NOTE | 2016-10-31 20:03 | PN ---
SUBJECTIVE: The patient is an 89-year-old female. 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 The patient was admitted on the medical site for evaluation of chest pain. The patient also had episodes of confusion and agitation. That is why, this designer/writer is involved into the patient's care. The patient is currently on Xanax 0.25 mg twice a day and Seroquel 12.5 mg twice a day. This designer/writer attempted to speak to the patient. The patient is deeply sleeping. This is the second day where the patient is sedated in the morning time. We will consider to decrease the dose of Seroquel at the morning time. Collateral information was obtained from the nursing staff. The patient was able to talk at the morning time, communicated her needs. There are no signs of psychosis or agitation, but overnight, the patient still has episodes of restless behavior and trying to climb off the bed. VITAL SIGNS: Stable. Temperature 98.4, pulse 83, blood pressure 162/92, respirations 20, oxygen saturation is 95. MEDICATIONS: Reviewed. Xanax 0.25 mg twice a day, aspirin 81 mg daily, Colace, hydralazine, Imdur, Lopressor, NicoDerm, MiraLax, and Seroquel 12.5 mg, will be decreased through the night time. LABORATORY DATA: Reviewed, most recently from today. Urinalysis was negative for any infection which was obtained yesterday. Abdominal CT scan was done. The patient was found to have atelectasis, also fecal distention in rectum, biliary dilatation, also bilateral renal pelviectasis, multiple calcifications of the uterus. MENTAL STATUS EXAMINATION: Not able to perform because the patient was deeply sedated, was able to open to her eyes but falling back to sleep. IMPRESSION: Neurocognitive deficit. The patient has Alzheimer dementia, also on top of that delirium. PLAN: We will try to decrease the dose of Seroquel to 12.5 mg at the night time. Xanax needs to be continued. Family needs to be involved. Physical Therapy evaluation. Continue current management. We will follow up and try to coordinate. Thank you very much for letting me to participate in care of your patient. Trudy Morales MD [facility] # [id number]
--- NOTE | 2016-11-01 00:04 | CP.PCM.PN ---
Subjective - Date & Time of Evaluation Date of Evaluation: 11/01/16 Time of Evaluation: 00:02 - Subjective Subjective: Patient was seen at bedside. It was requested to renew CARLA restraints. Later on, nurse calls back and requested an order for tylenol for her complains of left rib pain. Denied chest pain, sob, nausea, vomiting , sweating, palpitations. Medical record was reviewed. This 89 year old white woman was admitted with chest pain. Has PMH of Dementia, CVA , COPD, HTN , former smoker ,B/L cataract implants, right knee replacement, right mastectomy for breast cancer. Objective - Vital Signs/Intake and Output Vital Signs (last 24 hours): Temp Pulse Resp BP Pulse Ox 98.8 F 93 H 20 97/58 L 95 10/31/16 17:38 10/31/16 21:28 10/31/16 17:38 10/31/16 21:28 10/31/16 06:00 Intake and Output: 10/31/16 11/01/16 18:59 06:59 Intake Total 360 Output Total 500 Balance -140 - Medications Medications: Current Medications Alprazolam (Xanax) 0.25 mg PO BID [facility] PRN Reason: Protocol Last Admin: 10/31/16 18:31 Dose: 0.25 mg Aspirin (Ecotrin) 81 mg PO DAILY [facility] Last Admin: 10/31/16 10:36 Dose: 81 mg Docusate Sodium (Colace) 100 mg PO BID [facility] Last Admin: 10/31/16 18:31 Dose: 100 mg Metoprolol Tartrate (Lopressor) 12.5 mg PO Q12 [facility] Last Admin: 10/31/16 21:28 Dose: Not Given Polyethylene Glycol (Miralax) 17 gm PO DAILY [facility] Last Admin: 10/31/16 10:36 Dose: 17 gm Quetiapine Fumarate (Seroquel) 12.5 mg PO HS [facility] PRN Reason: Protocol Last Admin: 10/31/16 21:25 Dose: 12.5 mg Thiamine HCl (Vitamin B1 Tab) 100 mg PO BID [facility] Last Admin: 10/31/16 18:31 Dose: 100 mg - Labs Labs: 10/31/16 08:50 10/31/16 08:50 PT 10.6 Seconds (9.9-11.8) 10/27/16 17:00 INR 0.98 (0.93-1.08) 10/27/16 17:00 APTT 26.4 Seconds (23.7-30.8) 10/27/16 17:00 Micro Results 10/30/16 18:20 Blood-Venous Blood Culture - Preliminary NO GROWTH AFTER 24 HOURS 10/30/16 18:20 Blood-Venous Blood Culture - Preliminary NO GROWTH AFTER 24 HOURS Most Recent Lab Values WBC 9.3 10^3/ul (4.5-11.0) D 10/31/16 08:50 RBC 3.74 10^6/uL (3.5-6.1) 10/31/16 08:50 Hgb 11.5 g/dL (12.0-16.0) L 10/31/16 08:50 Hct 33.5 % (36.0-48.0) L 10/31/16 08:50 MCV 89.6 fl (80.0-105.0) 10/31/16 08:50 MCH 30.7 pg (25.0-35.0) 10/31/16 08:50 MCHC 34.3 g/dl (31.0-37.0) 10/31/16 08:50 RDW 13.2 % (11.5-14.5) 10/31/16 08:50 Plt Count 200 10^3/uL (120.0-450.0) 10/31/16 08:50 MPV 8.9 fl (7.0-11.0) 10/31/16 08:50 Gran % 84.5 % (50.0-68.0) H 10/31/16 08:50 Lymph % (Auto) 10.3 % (22.0-35.0) L 10/31/16 08:50 Anderson % (Auto) 5.0 % (1.0-6.0) 10/31/16 08:50 Eos % (Auto) 0.1 % (1.5-5.0) L 10/31/16 08:50 Baso % (Auto) 0.1 % (0.0-3.0) 10/31/16 08:50 Gran # 7.89 (1.4-6.5) H 10/31/16 08:50 Lymph # 1.0 (1.2-3.4) L 10/31/16 08:50 Anderson # 0.5 (0.1-0.6) 10/31/16 08:50 Eos # 0.0 (0.0-0.7) 10/31/16 08:50 Baso # 0.01 K/mm3 (0.0-2.0) 10/31/16 08:50 PT 10.6 Seconds (9.9-11.8) 10/27/16 17:00 INR 0.98 (0.93-1.08) 10/27/16 17:00 APTT 26.4 Seconds (23.7-30.8) 10/27/16 17:00 pCO2 38 mm/Hg (35-45) 10/30/16 17:35 pO2 85.0 mm/Hg (80-100) 10/30/16 17:35 HCO3 24.6 mmol/L (21-28) 10/30/16 17:35 ABG pH 7.42 (7.35-7.45) 10/30/16 17:35 ABG Total CO2 25.8 mmol.L (22-28) 10/30/16 17:35 ABG O2 Saturation 98.2 % (95-98) H 10/30/16 17:35 ABG O2 Content 16.0 ML/dl (15-23) 10/30/16 17:35 ABG Base Excess 0.2 mmol/L (-2.0-3.0) 10/30/16 17:35 ABG Hemoglobin 11.9 g/dL (11.7-17.4) 10/30/16 17:35 ABG Carboxyhemoglobin 1.9 % (0.5-1.5) H 10/30/16 17:35 POC ABG HHb (Measured) 1.7 % (0-5) 10/30/16 17:35 ABG Methemoglobin 1.1 % (0.0-3.0) 10/30/16 17:35 ABG O2 Capacity 16.3 mL/dl (16-24) 10/30/16 17:35 Hgb O2 Saturation 95.3 % (95.0-98.0) 10/30/16 17:35 FiO2 21.0 % 10/30/16 17:35 Sodium 142 mmol/L (132-148) 10/31/16 08:50 Potassium 3.8 mmol/L (3.6-5.0) 10/31/16 08:50 Chloride 108 mmol/L (98-107) H 10/31/16 08:50 Carbon Dioxide 24 mmol/L (21-33) 10/31/16 08:50 Anion Gap 14 (10-20) 10/31/16 08:50 BUN 12 mg/dL (7-21) 10/31/16 08:50 Creatinine 0.7 mg/dL (0.5-1.4) 10/31/16 08:50 Est GFR ( Amer) > 60 10/31/16 08:50 Est GFR (Non-Af Amer) > 60 10/31/16 08:50 Random Glucose 122 mg/dL (70-110) H 10/31/16 08:50 Calcium 8.0 mg/dL (8.4-10.5) L 10/31/16 08:50 Total Bilirubin 0.6 mg/dL (0.2-1.3) 10/30/16 18:20 AST 19 U/L (15-39) 10/30/16 18:20 ALT 29 U/L (7-56) 10/30/16 18:20 Alkaline Phosphatase 55 U/L (38-133) 10/30/16 18:20 Lactate Dehydrogenase 458 U/L (333-699) 10/31/16 08:50 Total Creatine Kinase 143 U/L (35-230) 10/31/16 08:50 Troponin I < 0.01 ng/mL 10/31/16 08:50 NT-Pro-B Natriuret Pep 179 pg/mL (0-450) 10/27/16 17:00 Total Protein 5.3 g/dL (5.8-8.3) L 10/30/16 18:20 Albumin 2.9 g/dL (3.0-4.8) L 10/30/16 18:20 Globulin 2.4 gm/dL 10/30/16 18:20 Albumin/Globulin Ratio 1.2 (1.1-1.8) 10/30/16 18:20 Triglycerides 71 mg/dL (35-160) 10/29/16 07:20 Cholesterol 180 mg/dL (130-200) 10/29/16 07:20 LDL Cholesterol Direct 114 mg/dL (0-129) 10/29/16 07:20 HDL Cholesterol 55 mg/dL (29-60) 10/29/16 07:20 TSH 3rd Generation 3.50 mIU/mL (0.46-4.68) 10/29/16 07:20 Urine Color Yellow (YELLOW) 10/30/16 18:25 Urine Appearance Clear (CLEAR) 10/30/16 18:25 Urine pH 6.5 (4.7-8.0) 10/30/16 18:25 Ur Specific [place] 1.025 (1.005-1.035) 10/30/16 18:25 Urine Protein Negative mg/dL (<30 mg/dL) 10/30/16 18:25 Urine Glucose (UA) 100 mg/dL (NEGATIVE) H 10/30/16 18:25 Urine Ketones Negative mg/dL (NEGATIVE) 10/30/16 18:25 Urine Blood Negative (NEGATIVE) 10/30/16 18:25 Urine Nitrate Negative (NEGATIVE) 10/30/16 18:25 Urine Bilirubin Negative (NEGATIVE) 10/30/16 18:25 Urine Urobilinogen 1.0 E.U./dL (<1 E.U./dL) H 10/30/16 18:25 Ur Leukocyte Esterase Negative Rafi/uL (NEGATIVE) 10/30/16 18:25 - Constitutional Appears: Well, No Acute Distress - Head Exam Head Exam: NORMAL INSPECTION, NORMOCEPHALIC - Eye Exam Eye Exam: Normal appearance - ENT Exam ENT Exam: Normal External Ear Exam - Neck Exam Neck Exam: Normal Inspection - Respiratory Exam Respiratory Exam: NORMAL BREATHING PATTERN - Cardiovascular Exam Cardiovascular Exam: absent: JVD - GI/Abdominal Exam GI & Abdominal Exam: absent: Distended - Rectal Exam Rectal Exam: Deferred - Exam Additional comments: Deferred. - Extremities Exam Extremities Exam: Normal Inspection - Back Exam Back Exam: NORMAL INSPECTION - Neurological Exam Neurological Exam: Alert, Awake - Psychiatric Exam Psychiatric exam: Anxious - Skin Skin Exam: Normal Color Assessment and Plan - Assessment and Plan (Free Text) Assessment: Intermittent agitation. Left ribs pain. HTN. Dementia. COPD. Hx CVA. Breast cancer Hx. Plan: CARLA VEST restraint was renewed. Tylenol 650 mg PO ordered. Continue present management.
--- NOTE | 2016-11-01 01:17 | PN ---
DATE: 10/31/2016 SUBJECTIVE: The patient was seen this Sunday evening in Room 262, Bed 2 with her daughter at the bedside. She is more awake today, but still does not recognizes me or converse clearly because of what appears to be a worsening dementia. Yesterday, the patient had an episode of hypotension, which responded to IV saline infusion. Today, her pressure was good; in fact, it was up a little bit, up until just recently when her systolic pressure dropped into the 90s. She is asymptomatic and comfortable so I will not la to resuscitate with IV fluids. She seems euvolemic to me, but we will adjust her medications. I see that her metoprolol had been increased to 25 mg b.i.d. So, I will reduce that to 12.5 mg again. I had also started Imdur because of her initial presenting symptoms of chest pain and I will discontinue that. I spoke with the daughter at length. Apparently, the patient had been cutting down dramatically on her tobacco use and had not smoked for 3 days prior to coming into the hospital; so, I will discontinue her nicotine patch. Lastly for discharge planning, I spoke with the patient's daughter. I told her all these medication changes we will make including the Seroquel at bedtime to help with restlessness and agitation. I will ask her to be out of bed. I will ask her physical therapy, to exercise with her or try ambulating her a little bit tomorrow and then hopefully we can discontinue telemetry tomorrow and discharge the patient to home on when the daughter will be ready for her with additional help at home. Kvng Kang MD
[2016-11-01] MEDS: POLYETHYLENE GLYCOL 3350 17 GM/Dose PACKET PO SCH (10:11)
--- NOTE | 2016-11-01 11:09 | PN ---
DATE: REASON FOR CONSULTATION: Cardiac evaluation and chest pain. SUBJECTIVE: The patient is lying flat in the bed. Denies any chest pain, on [place] restraint. OBJECTIVE: GENERAL: Lying in the bed, not in apparent distress, on [place] restraint. VITAL SIGNS: Temperature afebrile, heart rate 88, blood pressure 143/79. HEENT: PERRLA. Extraocular muscles intact. NECK: Supple. No carotid bruit or thyromegaly. CHEST: Clear to auscultation. HEART: S1 and S2, regular. ABDOMEN: Soft. EXTREMITIES: Clubbing and cyanosis negative. LABORATORY DATA: Blood workup as follows: WBC 9.3, hemoglobin 11.5, hematocrit 33.5, platelet count 200. Chemistry showed sodium 142, potassium 3.8, chloride 108, carbon dioxide 24, anion gap of 14, BUN 12, creatinine 0.7. Troponin is 0.01. IMPRESSION: An 89-year-old female with past medical history significant for hypertension, dementia, admitted for chest pain so far. No evidence of acute coronary syndrome. Troponin is negative. History of COPD, history of breast cancer, history of surgery, and anxiety disorder. The patient had echo done day before yesterday that should preserved LV function ejection, fraction 70%, moderate severe tricuspid regurgitation, right ventricular systolic pressure 53 consistent with moderate pulmonary hypertension, calcified aortic valve with open adequately. As mentioned so far, no evidence of acute coronary syndrome, history of tobacco abuse on nicotine patch. RECOMMENDATION: Continue low dose beta-jazmin. We will put hydralazine as needed for systolic more than 170 as needed. Continue aspirin. We will discharge to telemetry, out of bed to chair, physical therapy. We will supplement potassium. Yesterday, potassium was supplemented. We will repeat blood workup and follow up with you. Thank you Dr. Kang for providing opportunity in taking care of the patient, Gabriela Almonte. Angel Prieto MD
--- NOTE | 2016-11-01 20:39 | PN ---
FOLLOWUP NOTE SUBJECTIVE: This specifications writer followed up on this patient. Patient is more alert, mumbling something to herself, very hard to understand. This specifications writer changed medications yesterday. At present, no medications. Is on Seroquel 12.5 mg at the nighttime and this specifications writer discontinued morning dose of Seroquel because of excessive sedation since the patient is doing a little bit better. MEDICATIONS: Reviewed. Xanax 0.125 mg twice a day, aspirin 81 mg daily, Colace 100 mg twice a day, hydralazine 10 mg q.i.d., Lopressor, Miralax, Seroquel 12.5 mg at the nighttime, vitamin B1 100 mg twice a day. PHYSICAL EXAMINATION VITAL SIGNS: Temperature is 98, pulse is 75, blood pressure 135/75, respiration 18, oxygen saturation is 97%. LABORATORY DATA: Labs reviewed. Most recent was from yesterday. No new labs. Reports reviewed. As per nursing staff report, patient is more alert, still has periods of confusion, but there is no agitation or aggression. Patient was seen by cardiology team, neurology team, notes reviewed. MENTAL STATUS EXAMINATION: Patient is more alert, there is no option to have meaningful conversation with the patient. Intermittent eye contact. Speech, patient was mumbling something. Patient was not able to comprehend, questioned about mood. Insight and judgment are very impaired. Impulses are still unpredictable. IMPRESSION: Delirium and dementia. Please see medical team note for more detailed information with regards of the medical issues. PLAN: Continue current management, continue Seroquel at the nighttime as scheduled. Continue Xanax. Patient seems to be doing better. This specifications writer will followup on this patient every other day. Should you have any questions, give me a call back. Thank you very much for letting me participate in care of your patient. Trudy Morales MD
--- NOTE | 2016-11-02 00:03 | CP.PCM.PN ---
Subjective - Date & Time of Evaluation Date of Evaluation: 11/02/16 Time of Evaluation: 00:02 - Subjective Subjective: Patient was seen because I was asked to renew restraint orders. Patient is alert, awake, does not answer questions to the point. As per nurse staff , tries to get out of bed intermittently. Medical record was reviewed. 89 year old white woman was admitted with chest pain. PMH of HTN ,Dementia, CVA , COPD, B/L cataract implants, right knee replacement, right mastectomy for breast cancer,former smoker. Objective - Vital Signs/Intake and Output Vital Signs (last 24 hours): Temp Pulse Resp BP Pulse Ox 97.4 F L 97 H 20 131/94 H 92 L 11/01/16 16:00 11/01/16 21:14 11/01/16 16:00 11/01/16 21:14 11/01/16 16:00 Intake and Output: 11/01/16 11/02/16 18:59 06:59 Intake Total 600 Balance 600 - Medications Medications: Current Medications Alprazolam (Xanax) 0.25 mg PO BID [facility] PRN Reason: Protocol Last Admin: 11/01/16 17:59 Dose: 0.25 mg Aspirin (Ecotrin) 81 mg PO DAILY [facility] Last Admin: 11/01/16 10:09 Dose: 81 mg Docusate Sodium (Colace) 100 mg PO BID [facility] Last Admin: 11/01/16 18:00 Dose: 100 mg Hydralazine HCl (Apresoline) 10 mg PO QID [facility] PRN Reason: for SBP > 170 Metoprolol Tartrate (Lopressor) 12.5 mg PO Q12 [facility] Last Admin: 11/01/16 21:14 Dose: 12.5 mg Polyethylene Glycol (Miralax) 17 gm PO DAILY [facility] Last Admin: 11/01/16 10:11 Dose: 17 gm Quetiapine Fumarate (Seroquel) 12.5 mg PO HS [facility] PRN Reason: Protocol Last Admin: 11/01/16 21:14 Dose: 12.5 mg Thiamine HCl (Vitamin B1 Tab) 100 mg PO BID [facility] Last Admin: 11/01/16 18:00 Dose: 100 mg - Labs Labs: 10/31/16 08:50 10/31/16 08:50 PT 10.6 Seconds (9.9-11.8) 10/27/16 17:00 INR 0.98 (0.93-1.08) 10/27/16 17:00 APTT 26.4 Seconds (23.7-30.8) 10/27/16 17:00 - Constitutional Appears: Well, No Acute Distress - Head Exam Head Exam: ATRAUMATIC, NORMAL INSPECTION, NORMOCEPHALIC - Eye Exam Eye Exam: Normal appearance - ENT Exam ENT Exam: Normal External Ear Exam - Neck Exam Neck Exam: Normal Inspection - Respiratory Exam Respiratory Exam: NORMAL BREATHING PATTERN - Cardiovascular Exam Cardiovascular Exam: absent: JVD - GI/Abdominal Exam GI & Abdominal Exam: absent: Distended - Rectal Exam Rectal Exam: Deferred - Exam Additional comments: Deferred. - Extremities Exam Extremities Exam: Normal Inspection - Back Exam Back Exam: NORMAL INSPECTION - Neurological Exam Neurological Exam: Altered - Psychiatric Exam Psychiatric exam: Anxious - Skin Skin Exam: Normal Color Assessment and Plan - Assessment and Plan (Free Text) Assessment: Intermittent agitation. HTN. Dementia. CVA. COPD. Breast cancer. Ex smoker. Plan: Will renew the restraitnt order. Seroquel 12.5 mg po x 1. Continue present management.
[2016-11-02 07:43] LABS: BASO # 0.02 K/mm3 (0.0-2.0); BASO % 0.3 % (0.0-3.0); EOS # 0.2 (0.0-0.7); EOS % 2.7 % (1.5-5.0); GRAN # 4.62 (1.4-6.5); GRAN % 62.6 % (50.0-68.0); LYMPH % 26.5 % (22.0-35.0); MEAN CELL VOLUME 89.4 fl (80.0-105.0); MEAN CORPUSCULAR HEMOGLOBIN 31.4 pg (25.0-35.0); MEAN CORPUSCULAR HGB CONC 35.1 g/dl (31.0-37.0); MEAN PLATELET VOLUME 9.2 fl (7.0-11.0); MONO # 0.6 (0.1-0.6); MONO % 7.9 % (1.0-6.0); RED CELL DISTRIBUTION WIDTH 13.2 % (11.5-14.5); WHITE BLOOD COUNT 7.4 10^3/ul (4.5-11.0)
[2016-11-02 07:56] LABS: ALB/GLOB RATIO 1.3 (1.1-1.8); ALKALINE PHOSPHATASE 72 U/L (38-133); ALT/SGPT 35 U/L (7-56); AST/SGOT 32 U/L (15-39); BILIRUBIN,TOTAL 0.5 mg/dL (0.2-1.3); BLOOD UREA NITROGEN 15 mg/dL (7-21); CALCIUM 8.8 mg/dL (8.4-10.5); CARBON DIOXIDE 28 mmol/L (21-33); CHLORIDE 102 mmol/L (98-107); GFR AFRICAN-AMERICAN > 60; GLUCOSE,RANDOM 100 mg/dL (70-110); PHOSPHOROUS 3.4 mg/dL (2.5-4.5); POTASSIUM 4.1 mmol/L (3.6-5.0); SODIUM 139 mmol/L (132-148); TOTAL PROTEIN 6.5 g/dL (5.8-8.3)
[2016-11-02 08:27] VITALS: BP 124/63; PULSE 83; RESP 22; TEMP 98; O2SAT 100
[2016-11-02] MEDS: POLYETHYLENE GLYCOL 3350 17 GM/Dose PACKET PO SCH (09:14)
--- NOTE | 2016-11-02 14:35 | PN ---
DATE: 11/02/2016 LOCATION: The patient is in room 372, bed 1. REASON FOR CONSULTATION: Chest pain. SUBJECTIVE: The patient is sitting in chart comfortably without any cardiac symptoms like chest pain, shortness of breath, or palpitation. PHYSICAL EXAMINATION: GENERAL: Text. VITAL SIGNS: Blood pressure 124/63, respirations 22, pulse 83, and temperature 98. HEENT: Head is normocephalic. Eyes, pupils are normal. Conjunctivae normal. Nose and throat normal. NECK: JVP low. Carotids are equal. THORAX: AP diameter is normal. LUNGS: Clear. CARDIOVASCULAR: S1 and S2. ABDOMEN: Soft. Nontender. No organomegaly. Bowel sounds normal. EXTREMITIES: No clubbing. No cyanosis. LABORATORY DATA: WBC 7.4, hemoglobin 13.7, hematocrit 39.0, and platelets 276. Sodium 139, potassium 4.1, BUN 15, and creatinine 0.6. Calcium, phosphorous, and magnesium is normal. Total protein and albumin normal. DIAGNOSES: Chest pain, chronic obstructive pulmonary disease, anxiety disorder, and history of surgery for breast cancer. Echocardiogram finding has been discussed in the previous progress notes. The patient had pulmonary hypertension with right ventricular systolic pressure of 53 mmHg. RECOMMENDATION ANP PLAN: The patient had no evidence of acute coronary artery syndrome and we will continue aspirin 81 mg daily, metoprolol 12.5 mg q.12 hours, thiamine 100 mg b.i.d., and Xanax 0.25 b.i.d. We will follow. Angel Lomas MD
--- NOTE | 2016-11-02 14:42 | PN ---
DATE: 11/01/2016 SUBJECTIVE: The patient is an 89-year-old female who was admitted on the 28/10 complaining of chest pain. She is known to have a history of COPD, is a heavy smoker. She has atherosclerotic cardiovascular disease. She suffered breast cancer in 1968. She has agoraphobia and anxiety. She is status post CVA with minimal residual deficits. She underwent stress testing in March 2015, which was acceptable/normal. When seen today, the patient is much more awake, alert and oriented. There were problems with hypotension in the past and disorientation aggravation. However, this evening, the patient recognized me. She was very pleasant. During her hospital stay, her blood cultures have been negative x2. LABORATORY DATA: Yesterday's CBC showed a hemoglobin of 11.5 and hematocrit of 33.5. PHYSICAL EXAMINATION: VITAL SIGNS: Today, her blood pressure is 110/57, heart rate is 86, and she is afebrile. PLAN: We are planning the patient will be reevaluated in the morning and we are planing for a possible discharge in the morning. Celestino Kang MD
--- NOTE | 2016-11-03 09:33 | CP.PCM.PCO ---
Physician Communication Note - Physician Communication Note Physician Communication Note: pt was d/c
--- NOTE | 2016-11-03 09:39 | DS ---
HISTORY OF PRESENT ILLNESS: This is an 89-year-old woman, I have known for many years seen in the office, who came to the emergency room after complaining of chest pain. She also have a long-standing history of agoraphobia, anxiety and stroke earlier this year which resulted in worsening of dementia. She had been more agitated and restless at home, falling out, combative at times with her daughter when she reported chest pain in view of her multiple risk factors of atherosclerotic cerebrovascular disease and tobacco use, she came to the emergency room and was evaluated and admitted. COURSE OF HOSPITAL STAY: The patient was seen by log cutter as well as neurologist and then by psychiatry. Cardiac medications were adjusted, but then she began to have episodes of marked hypotension prompting a rapid response and IV fluids to resuscitate and bring pressure up. Eventually, her medicines were adjusted and this no more to happen. Her anxiety medicines were adjusted by consulting psychiatrist as well. The patient improves clinically. She is much more awake and alert, having a much better day with her blood pressure well controlled and ready for discharged to home. FINAL DISCHARGE DIAGNOSES: 1. Chest pain, not a cardiac origin. 2. Anxiety. 3. Dementia. 4. Post stroke worsening of dementia. 5. Marked chronic obstructive pulmonary disease. 6. Recent tobacco use disorder. 7. Coronary artery disease status post recent stent placement. Kvng Kang MD
== END 2016-11-02 14:41 | disposition home or self-care (01) | DRG 313 ==
LOC: ED 15:47 → ERH 17:48 → 2RNO 20:10 → OBSVTOIN 10-28 21:50 → 3RSO 11-01 16:05
PROVIDERS: ADMIT Internal Medicine; ATTEND Internal Medicine
DX: R07.89 Other chest pain (principal); I95.9 Hypotension, unspecified; I27.2 Other secondary pulmonary hypertension; F05 Delirium due to known physiological condition; G30.9 Alzheimer's disease, unspecified; F02.81 Dementia in other diseases classified elsewhere, unspecified severity, with behavioral disturbance; J44.9 Chronic obstructive pulmonary disease, unspecified; I07.1 Rheumatic tricuspid insufficiency; F40.00 Agoraphobia, unspecified; F17.210 Nicotine dependence, cigarettes, uncomplicated; F41.9 Anxiety disorder, unspecified; Z66 Do not resuscitate; Z96.651 Presence of right artificial knee joint; Z78.1 Physical restraint status; Z85.3 Personal history of malignant neoplasm of breast; I25.2 Old myocardial infarction; Z90.12 Acquired absence of left breast and nipple; Z86.73 Personal history of transient ischemic attack (TIA), and cerebral infarction without residual deficits

== ENCOUNTER 2017-02-12 17:47 | Emergency (ER) | payer MEDICARE ==
[2017-02-12] MEDS ORDERED: TDAP Vaccine 0.5 mL Syr IM ONE (18:16)
[2017-02-12 18:18] VITALS: BP 133/78; PULSE 78; RESP 15; TEMP 97.8; O2SAT 97; BMI 16.1
--- NOTE | 2017-02-12 18:20 | ED PDOC ---
Arrival/HPI - General Chief Complaint: Foreign Body Time Seen by Provider: 02/12/17 18:00 Historian: Family (Daughter) EM Caveat: Dementia - History of Present Illness Time/Duration: Other (several days) Symptom Course: Worsening Associated Symptoms (Text): 02/12/17 18:17 Daughter reports that the patient put a ring on her left middle finger, which was not the proper finger for this ring. The ring is too tight and they have been unable to get it off. They've been trying and is causing abrasion with infection of the proximal phalanx. Past Medical History - Provider Review Nursing Documentation Reviewed: Yes - Infectious Disease Hx of Infectious Diseases: None - Tetanus Immunization Tetanus Immunization: Unknown - Reproductive Currently : No - Cardiac Hx Cardiac Disorders: Yes (mi) Hx Hypertension: Yes - Pulmonary Hx Chronic Obstructive Pulmonary Disease (COPD): Yes - Neurological HX Cerebrovascular Accident: Yes - HEENT Hx HEENT Disorder: Yes Hx Cataracts: Yes (bilateral implants) Other/Comment: pt needs to be fed - Renal Hx Renal Failure: No - Endocrine/Metabolic Hx Diabetes Mellitus Type 1: No Hx Diabetes Mellitus Type 2: No Hx Hypothyroidism: No - Hematological/Oncological Hx Blood Disorders: No Hx Cancer: Yes (L breast cancer) Hx Chemotherapy: Yes - Integumentary Other/Comment: reddened sacrum no openings - Musculoskeletal/Rheumatological Hx Arthritis: Yes - Gastrointestinal Hx Gastrointestinal Disorders: Yes (poor appetite/weight loss) Hx Colostomy: No Hx Crohn's Disease: No Hx Diverticulitis: No Hx Gall Bladder Disease: No Hx Gastroesophageal Reflux: No Hx Ileostomy: No Hx Liver Failure: No Hx Pancreatitis: No HX Swallowing Problems: No - Genitourinary/Gynecological Hx Genitourinary Disorders: No Hx Hematuria: No Hx Incontinence: No Hx Sexually Transmitted Diseases: No Hx Urinary Tract Infection: No Other/Comment: uses commode and bedpan - Psychiatric Hx Psychophysiologic Disorder: Yes Hx Anxiety: Yes Hx Depression: No Hx Panic Disorder: Yes Hx Physical Abuse: No Hx Substance Use: No - Surgical History Hx Cholecystectomy: Yes Hx Inguinal Hernia Repair: Yes (right) Hx Joint Replacement: Yes (right knee replacement 15 yrs ago) Hx Mastectomy: Yes (left breast) - Anesthesia Hx Anesthesia: Yes Hx Anesthesia Reactions: No Hx Malignant Hyperthermia: No - Suicidal Assessment Feels Threatened In Home Enviroment: No Family/Social History - Physician Review Nursing Documentation Reviewed: Yes Family/Social History: Unknown Family HX Smoking Status: Former Smoker Hx Alcohol Use: No Hx Substance Use: No Hx Substance Use Treatment: No Allergies/Home Meds Allergies/Adverse Reactions: Allergies No Known Allergies Allergy (Verified 02/12/17 18:18) Home Medications: Home Meds Medication Instructions Recorded Confirmed Clopidogrel [Plavix] 75 mg PO DAILY 09/14/16 10/27/16 Atorvastatin [Lipitor] 10 mg PO HS 09/24/16 10/27/16 Risperidone 0.5 mg PO BID 10/27/16 10/27/16 Review of Systems - Review of Systems Systems not reviewed;Unavailable: Dementia Physical Exam Vital Signs Reviewed: Yes Vital Signs Temp Pulse Resp BP Pulse Ox 02/12/17 18:16 97.8 F 78 15 133/78 97 Temperature: Afebrile Blood Pressure: Normal Pulse: Regular Respiratory Rate: Normal Appearance: Positive for: Well-Appearing, Non-Toxic, Comfortable Pain Distress: None Mental Status: Positive for: Alert and Oriented X 3 - Systems Exam Upper Extremity: Present: Normal ROM, NORMAL PULSES, Tenderness, Swelling, Erythema, Neurovascularly Intact, Other (Left middle finger has a ring which is too tight and unable to get off. There is a superficial dorsal abrasion with erythema and superficial cellulitis. No drainage.). No: Deformity Medical Decision Making ED Course and Treatment: 02/12/17 18:19 Foreign body removal. The ring was cut off by myself using bandage scissors. The ring was removed. Sterile dressing applied. - Medication Orders Current Medication Orders: Discontinued Medications Tetanus/Reduced Diphtheria/Acell Pertussis (Boostrix Vaccine Inj) 0.5 ml IM .ONCE ONE Stop: 02/12/17 18:17 Last Admin: 02/12/17 18:29 Dose: 0.5 ml Disposition/Present on Arrival - Present on Arrival Any Indicators Present on Arrival: No History of DVT/PE: No History of Uncontrolled Diabetes: No Urinary Catheter: No History of Decub. Ulcer: No History Surgical Site Infection Following: None - Disposition Have Diagnosis and Disposition been Completed?: Yes Diagnosis: Foreign body, Cellulitis Disposition: HOME/ ROUTINE Disposition Time: 18:20 Patient Plan: Discharge Patient Problems: Current Active Problems Problem Status Onset Cellulitis Acute Foreign body Acute Condition: IMPROVED Discharge Instructions (ExitCare): Cellulitis (ED) Additional Instructions: rest ice and elevation. Wound precautions. Augmentin. Follow-up with PMD. Prescriptions: Amoxicillin/Clavulanate [Augmentin 875 MG-125 MG] 1 tab PO Q12 #20 tab Forms: [facility] (German)
== END 2017-02-12 18:38 | disposition home or self-care (01) ==
LOC: ED 17:47
DX: S60.453A Superficial foreign body of left middle finger, initial encounter (principal); X58.XXXA Exposure to other specified factors, initial encounter; Z23 Encounter for immunization; I10 Essential (primary) hypertension; J44.9 Chronic obstructive pulmonary disease, unspecified; Z87.891 Personal history of nicotine dependence; Z85.3 Personal history of malignant neoplasm of breast; Z96.651 Presence of right artificial knee joint

== ENCOUNTER 2017-02-25 18:13 | Emergency (ER) | payer MEDICARE ==
[2017-02-25 18:14] VITALS: BMI 16.1
--- NOTE | 2017-02-25 18:24 | ED PDOC ---
Arrival/HPI - General Chief Complaint: Altered Mental Status Time Seen by Provider: 02/25/17 18:19 Historian: Family (daughter) - History of Present Illness Narrative History of Present Illness (Text): 02/25/17 18:23 Gabriela Almonte is an 89 year old female, whose past medical history includes dementia, breast CA, COPD, and knee replacement, brought in by EMS with daughter to the emergency department for AMS and possible loss of consciousness prior to arrival. Daughter informs patient was home in her bed and was found "not responding for 8-10 minutes" until the daughter decided to call 911. Daughter informs patient has been demonstrating confusion for the past week, "mixing days with nights". Patient is also on antibiotics for healing abrasion on left middle finger. Patient returned to her baseline and daughter denies any nausea, vomiting, fever, chills, chest pain, shortness of breath, abdominal pain , or any other complaints. Symptom Onset: Gradual Symptom Course: Unchanged Activities at Onset: Light Context: Home Past Medical History - Provider Review Nursing Documentation Reviewed: Yes - Infectious Disease Hx of Infectious Diseases: None - Tetanus Immunization Tetanus Immunization: Unknown - Reproductive Menopause: Yes - Cardiac Hx Cardiac Disorders: Yes (mi) Hx Hypertension: Yes - Pulmonary Hx Chronic Obstructive Pulmonary Disease (COPD): Yes - Neurological HX Cerebrovascular Accident: Yes - HEENT Hx HEENT Disorder: Yes Hx Cataracts: Yes (bilateral implants) Other/Comment: pt needs to be fed - Renal Hx Renal Failure: No - Endocrine/Metabolic Hx Diabetes Mellitus Type 1: No Hx Diabetes Mellitus Type 2: No Hx Hypothyroidism: No - Hematological/Oncological Hx Blood Disorders: No Hx Cancer: Yes (L breast cancer) Hx Chemotherapy: Yes - Integumentary Other/Comment: reddened sacrum no openings - Musculoskeletal/Rheumatological Hx Arthritis: Yes - Gastrointestinal Hx Gastrointestinal Disorders: Yes (poor appetite/weight loss) Hx Colostomy: No - Genitourinary/Gynecological Hx Genitourinary Disorders: No Hx Hematuria: No Hx Incontinence: No Hx Sexually Transmitted Diseases: No Hx Urinary Tract Infection: No Other/Comment: uses commode and bedpan - Psychiatric Hx Psychophysiologic Disorder: Yes Hx Anxiety: Yes Hx Panic Disorder: Yes Hx Substance Use: No - Surgical History Hx Cholecystectomy: Yes Hx Joint Replacement: Yes (right knee replacement 15 yrs ago) Hx Mastectomy: Yes (left breast) - Anesthesia Hx Anesthesia: Yes Hx Anesthesia Reactions: No Hx Malignant Hyperthermia: No - Suicidal Assessment Feels Threatened In Home Enviroment: No Family/Social History - Physician Review Nursing Documentation Reviewed: Yes Family/Social History: Unknown Family HX Smoking Status: Former Smoker Hx Alcohol Use: No Hx Substance Use: No Hx Substance Use Treatment: No Allergies/Home Meds Allergies/Adverse Reactions: Allergies No Known Allergies Allergy (Verified 02/12/17 18:18) Home Medications: Home Meds Medication Instructions Recorded Confirmed Clopidogrel [Plavix] 75 mg PO DAILY 09/14/16 02/25/17 Atorvastatin [Lipitor] 10 mg PO HS 09/24/16 02/25/17 Alprazolam [Xanax] 0.25 mg PO QID 02/25/17 02/25/17 Haloperidol [Haldol] 0.5 mg PO HS 02/25/17 02/25/17 Ibuprofen [Advil] 400 mg PO PRN PRN 02/25/17 02/25/17 Metoprolol Tartrate [Lopressor] 25 mg PO BID 02/25/17 02/25/17 traMADol [Ultram] 50 mg PO BID 02/25/17 02/25/17 Review of Systems - Physician Review All systems were reviewed & negative as marked: Yes - Review of Systems Constitutional: Other (confused) Eyes: Normal ENT: Normal Respiratory: Normal. absent: SOB Cardiovascular: Normal. absent: Chest Pain Gastrointestinal: Normal. absent: Abdominal Pain, Diarrhea, Nausea, Vomiting Genitourinary Female: Normal Musculoskeletal: Normal Skin: Other (healing abrasion on left middle finger) Neurological: Other (possible loc ) Endocrine: Normal Hemo/Lymphatic: Normal Psychiatric: Normal Physical Exam Vital Signs Reviewed: Yes Vital Signs Temp Pulse Resp BP Pulse Ox 02/25/17 18:28 98.2 F 72 18 153/74 H 96 Temperature: Afebrile Blood Pressure: Normal Pulse: Regular Respiratory Rate: Normal Appearance: Positive for: Well-Appearing, Non-Toxic, Comfortable Pain Distress: None Mental Status: Positive for: Confused - Systems Exam Head: Present: Atraumatic, Normocephalic Pupils: Present: PERRL Extroacular Muscles: Present: EOMI Conjunctiva: Present: Normal Mouth: Present: Dry. No: Moist Mucous Membranes Neck: Present: Normal Range of Motion Respiratory/Chest: Present: Clear to Auscultation, Good Air Exchange. No: Respiratory Distress, Accessory Muscle Use Cardiovascular: Present: Regular Rate and Rhythm, Normal S1, S2. No: Murmurs Abdomen: Present: Normal Bowel Sounds. No: Tenderness, Distention, Peritoneal Signs Back: Present: Normal Inspection Upper Extremity: Present: Normal Inspection, NORMAL PULSES. No: Cyanosis, Edema Lower Extremity: Present: Normal Inspection. No: Edema Neurological: Present: GCS=15, CN II-XII Intact, Other (Confusion ) Skin: Present: Warm, Dry, Normal Color, Other (Healing abrasion on left middle finger). No: Rashes Psychiatric: Present: Alert Medical Decision Making ED Course and Treatment: 02/25/17 18:24 Impression: 89 year old female presents to the Emergency department for AMS and possible LOC. Plan: -- Labs -- IV Fluids -- Urinalysis, Urine Culture -- Reassess and disposition Prior Visits: Notes and results from previous visits were reviewed. On 02/12/17 patient was brought to the Emergency department complaing of abrasion to left middle finger s/p inaccurate sized ring. Patient was diagnosed with cellulitis and sent home with antibiotics. On 09/14/16 patient was seen in the Emergency department for AMS and was discharged home upon improvement. Progress Notes: Reassessment Condition: Re-examined, Improved - Lab Interpretations Lab Results: 02/25/17 18:35 02/25/17 18:35 Lab Results 02/25/17 18:35: Sodium 141, Potassium 4.4, Chloride 105, Carbon Dioxide 26, Anion Gap 15, BUN 16, Creatinine 0.8, Est GFR ( Amer) > 60, Est GFR (Non- Af Amer) > 60, Random Glucose 90, Calcium 8.9, Total Bilirubin 0.5, AST 29, ALT 31, Alkaline Phosphatase 97, Total Protein 7.3, Albumin 4.2, Globulin 3.1, Albumin/Globulin Ratio 1.3 02/25/17 18:35: WBC 6.2, RBC 4.83, Hgb 15.2, Hct 44.3, MCV 91.7, MCH 31.5, MCHC 34.3, RDW 13.0, Plt Count 196, MPV 11.1 H, Gran % 67.2, Lymph % (Auto) 22.8, [place] % (Auto) 8.0 H, Eos % (Auto) 1.8, Baso % (Auto) 0.2, Gran # 4.18, Lymph # 1.4, [place] # 0.5, Eos # 0.1, Baso # 0.01 02/25/17 17:00: Urine Color Yellow, Urine Appearance Sl cloudy, Urine pH 6.0, Ur Specific [place] 1.020, Urine Protein Negative, Urine Glucose (UA) Negative, Urine Ketones Negative, Urine Blood Negative, Urine Nitrate Negative, Urine Bilirubin Negative, Urine Urobilinogen 0.2, Ur Leukocyte Esterase Small H, Urine RBC Pending, Urine WBC Pending - Medication Orders Current Medication Orders: Discontinued Medications Sodium Chloride (Sodium Chloride 0.9%) 1,000 mls @ 999 mls/hr IV .Q1H1M STA Stop: 02/25/17 19:26 Last Admin: 02/25/17 18:37 Dose: 999 mls/hr eMAR Start Stop Document 02/25/17 18:37 EWO (Rec: 02/25/17 18:37 EWO [facility] [id number] Intravenous Solution Start Date 02/25/17 Start Time 18:37 End Date 02/25/17 End time 19:37 Total Infusion Time 60 - Scribe Statement The provider has reviewed the documentation as recorded by the Scribe Brea Fleming. All medical record entries made by the Scribe were at my direction and personally dictated by me. I have reviewed the chart and agree that the record accurately reflects my personal performance of the history, physical exam, medical decision making, and the department course for this patient. I have also personally directed, reviewed, and agree with the discharge instructions and disposition. Disposition/Present on Arrival - Present on Arrival Any Indicators Present on Arrival: No History of DVT/PE: No History of Uncontrolled Diabetes: No Urinary Catheter: No History of Decub. Ulcer: No History Surgical Site Infection Following: None - Disposition Have Diagnosis and Disposition been Completed?: Yes Diagnosis: Dehydration, Mental status change resolved Disposition: HOME/ ROUTINE Disposition Time: 19:45 Patient Problems: Current Active Problems Problem Status Onset Dehydration Acute Mental status change resolved Acute Condition: IMPROVED Referrals: Kvng Kang MD [Primary Care Provider] - Follow up with primary Forms: [facility] (Ecuadorean)
[2017-02-25] MEDS ORDERED: Sodium Chloride 0.9% 1,000 ML IV STA (18:26)
[2017-02-25 18:43] LABS: BASO # 0.01 K/mm3 (0.0-2.0); BASO % 0.2 % (0.0-3.0); EOS # 0.1 (0.0-0.7); EOS % 1.8 % (1.5-5.0); GRAN # 4.18 (1.4-6.5); GRAN % 67.2 % (50.0-68.0); HEMATOCRIT 44.3 % (36.0-48.0); LYMPH # 1.4 (1.2-3.4); LYMPH % 22.8 % (22.0-35.0); MEAN CELL VOLUME 91.7 fl (80.0-105.0); MEAN CORPUSCULAR HEMOGLOBIN 31.5 pg (25.0-35.0); MEAN CORPUSCULAR HGB CONC 34.3 g/dl (31.0-37.0); MEAN PLATELET VOLUME 11.1 fl (7.0-11.0); MONO # 0.5 (0.1-0.6); WHITE BLOOD COUNT 6.2 10^3/ul (4.5-11.0)
[2017-02-25 18:53] VITALS: RESP 18; TEMP 98.2
[2017-02-25 18:57] LABS: ALB/GLOB RATIO 1.3 (1.1-1.8); ALKALINE PHOSPHATASE 97 U/L (38-126); ALT/SGPT 31 U/L (7-56); AST/SGOT 29 U/L (14-36); BILIRUBIN,TOTAL 0.5 mg/dL (0.2-1.3); BLOOD UREA NITROGEN 16 mg/dL (7-21); CALCIUM 8.9 mg/dL (8.4-10.5); CARBON DIOXIDE 26 mmol/L (21-33); CHLORIDE 105 mmol/L (98-107); GFR AFRICAN-AMERICAN > 60; GLUCOSE,RANDOM 90 mg/dL (70-110); POTASSIUM 4.4 mmol/L (3.6-5.0); SODIUM 141 mmol/L (132-148); TOTAL PROTEIN 7.3 g/dL (5.8-8.3)
[2017-02-25 19:27] LABS: URINE BILIRUBIN NEGATIVE (NEGATIVE); URINE BLOOD NEGATIVE (NEGATIVE); URINE GLUCOSE (UA) NEGATIVE (NEGATIVE); URINE KETONE NEGATIVE (NEGATIVE); URINE LEUKOCYTE ESTERASE SMALL Leu/uL (NEGATIVE); URINE PROTEIN NEGATIVE mg/dL (<30 mg/dL); URINE UROBILINOGEN 0.2 E.U./dL (<1 E.U./dL)
[2017-02-25 19:32] LABS: URINE APPEARANCE SL CLOUDY (CLEAR); URINE COLOR YELLOW (YELLOW)
[2017-02-25 19:48] LABS: URINE BACTERIA OCC (NEG); URINE RBC 0 - 2 /hpf (0-2)
[2017-02-25 20:21] VITALS: BP 155/81; PULSE 81; O2SAT 99
--- NOTE | 2017-02-27 07:03 | CARD ---
APPROVED REPORT EKG Measurement Heart [id number] <Conclusion> Normal sinus rhythm Right bundle branch block Septal ID, old Electrical artifact present Probably no change.
== END 2017-02-25 20:20 | disposition home or self-care (01) ==
LOC: ED 18:13
DX: E86.0 Dehydration (principal); R41.82 Altered mental status, unspecified; I10 Essential (primary) hypertension; J44.9 Chronic obstructive pulmonary disease, unspecified; Z85.3 Personal history of malignant neoplasm of breast; F03.90 Unspecified dementia, unspecified severity, without behavioral disturbance, psychotic disturbance, mood disturbance, and anxiety; Z96.651 Presence of right artificial knee joint; Z87.891 Personal history of nicotine dependence
CPT/HCPCS: 80053; 81001; 85025; 87086; 93005; 96360; 99285; J7040

== ENCOUNTER 2017-09-13 18:37 | Inpatient (IN) | payer MEDICARE, OTHER ==
[2017-09-13 18:49] VITALS: BMI 18.5
--- NOTE | 2017-09-13 19:02 | CT ---
Date of service: 09/13/2017 PROCEDURE: CT HEAD WITHOUT CONTRAST. HISTORY: Code Stroke COMPARISON: 10/30/2016 TECHNIQUE: Axial computed tomography images were obtained through the head/brain without intravenous contrast. Radiation dose: Total exam DLP = 688.91 mGy-cm. This CT exam was performed using one or more of the following dose reduction techniques: Automated exposure control, adjustment of the mA and/or kV according to patient size, and/or use of iterative reconstruction technique. FINDINGS: HEMORRHAGE: No intracranial hemorrhage. BRAIN: No mass effect or edema. 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 Findings unchanged compared to the prior study. VENTRICLES: Unremarkable. No hydrocephalus. CALVARIUM: Unremarkable. PARANASAL SINUSES: Unremarkable as visualized. No significant inflammatory changes. MASTOID AIR CELLS: Unremarkable as visualized. No inflammatory changes. OTHER FINDINGS: None. IMPRESSION: No acute intracranial abnormalities. No significant findings to account for the clinical presentation. No significant interval change compared to the prior examination(s). Code stroke protocol: Study completed 18:49 Radiologist notified 18:52 Results conveyed verbally at 18:58 Interpretation finalized and available for review 19:00
--- NOTE | 2017-09-13 19:28 | CARD ---
APPROVED REPORT Date of service: 09/13/2017 EKG Measurement Heart [id number] <Conclusion> Normal sinus rhythm Right bundle branch block Abnormal ECG
--- NOTE | 2017-09-13 19:52 | EDPD ---
HPI Stroke - General Time Seen by Provider: 09/13/17 18:42 Chief Complaint: Weakness/Neurological Deficit Historian: Family (Daughter) - History of Present Illness Narrative History of Present Illness (Free Text): 09/13/17 18:48 Patient is an 89 year old female, with past medical history of dementia, breast CA, COPD, and CVA, presents to the Emergency department via EMS accompanied by daughter for slurred speech and left sided weakness since 3pm this morning. Daughter states patient was aroused at 3 pm as she was "sleeping more than usual ". Upon waking up, daughter observed slurred speech more than typical and difficulty moving her left side, worse than baseline. Daughter is uncertain when patient was at her baseline last but believes patient was in her typical this morning prior to sleeping. HPI and ROS limited due to patient's current state. Onset:: Hours Timing: Currently Symptomatic Context: Home Exacerbated by: Nothing Relieved by: Nothing - Location Location: Speech Locate Left: Upper extremity - Pain Assessment/Levels Maximum Severity: Mild Severity Current: None rTPA Inclusion/Exclusion - Refusal of Treatment Patient Refused Treatment: Yes - Inclusion Criteria for Altepase Time of Onset is Well Established to be Less Than 270 Minute Before Treatment Would Begin: No - Warning to TPA With Conditions Condition: Rapid Improvement Past Medical History - Provider Review Nursing Documentation Reviewed: Yes - Infectious Disease Hx of Infectious Diseases: None - Tetanus Immunization Tetanus Immunization: Unknown - Cardiac Hx Cardiac Disorders: Yes (mi) Hx Hypertension: Yes - Pulmonary Hx Chronic Obstructive Pulmonary Disease (COPD): Yes - Neurological HX Cerebrovascular Accident: Yes - HEENT Hx HEENT Disorder: Yes Hx Cataracts: Yes (bilateral implants) Other/Comment: pt needs to be fed - Renal Hx Renal Failure: No - Endocrine/Metabolic Hx Diabetes Mellitus Type 1: No Hx Diabetes Mellitus Type 2: No Hx Hypothyroidism: No - Hematological/Oncological Hx Blood Disorders: No Hx Cancer: Yes (L breast cancer) Hx Chemotherapy: Yes - Integumentary Other/Comment: reddened sacrum no openings - Musculoskeletal/Rheumatological Hx Arthritis: Yes - Gastrointestinal Hx Gastrointestinal Disorders: Yes (poor appetite/weight loss) Hx Colostomy: No - Genitourinary/Gynecological Hx Genitourinary Disorders: No Hx Hematuria: No Hx Incontinence: No Hx Sexually Transmitted Diseases: No Hx Urinary Tract Infection: No Other/Comment: uses commode and bedpan - Psychiatric Hx Psychophysiologic Disorder: Yes Hx Anxiety: Yes Hx Panic Disorder: Yes Hx Substance Use: No - Surgical History Hx Cholecystectomy: Yes Hx Joint Replacement: Yes (right knee replacement 15 yrs ago) Hx Mastectomy: Yes (left breast) - Anesthesia Hx Anesthesia: Yes Hx Anesthesia Reactions: No Hx Malignant Hyperthermia: No - Suicidal Assessment Feels Threatened In Home Enviroment: No Family/Social History - Family/Social History Family History: Non-Contributory Allergies/Home Meds Allergies/Adverse Reactions: Allergies No Known Allergies Allergy (Verified 09/13/17 18:48) Home Medications: Home Meds Medication Instructions Recorded Confirmed Clopidogrel [Plavix] 75 mg PO DAILY 09/14/16 02/25/17 Atorvastatin [Lipitor] 10 mg PO HS 09/24/16 02/25/17 Alprazolam [Xanax] 0.25 mg PO QID 02/25/17 02/25/17 Haloperidol [Haldol] 0.5 mg PO HS 02/25/17 02/25/17 Ibuprofen [Advil] 400 mg PO PRN PRN 02/25/17 02/25/17 Metoprolol Tartrate [Lopressor] 25 mg PO BID 02/25/17 02/25/17 traMADol [Ultram] 50 mg PO BID 02/25/17 02/25/17 Review of Systems - Review of Systems Systems not reviewed;Unavailable: Dementia Constitutional: absent: Fevers Respiratory: absent: SOB Cardiovascular: Chest Pain Gastrointestinal: absent: Abdominal Pain Musculoskeletal: absent: Back Pain Skin: absent: Rash Neurological: Focal Weakness, Speech Changes. absent: Headache Endocrine: absent: Polyuria ED Stroke Physical Exam - Physical Exam Narrative Physical Exam (Text): 09/13/17 18:48 Head: Atraumatic. Normocephalic. Eyes: Extraocular movements intact. No conjunctival injection. NO discharge. ENT: Mucous membranes are dry. Oropharynx is clear and symmetric. No drooling. No tongue deviation. Edentulous. Neck: Supple. Full ROM. No JVD. No lymphadenopathy. Cardiovascular: Regular rate. Regular rhythm. Systolic murmur.. Distal pulses are 2+ and symmetric. Pulmonary/Chest: No evidence of respiratory distress. Clear to auscultation bilaterally. No wheezing, rales or rhonchi. Abdominal: Soft and non-distended. There is no tenderness. No rebound, guarding, or rigidity. No organomegaly. Good bowel sounds. Back: No CVA tenderness. Extremities: No edema. No cyanosis. No clubbing. No focal erythema. There is full range of motion of lower extremities. Patient with possible limitations with range of motion of left wrist difficulty to assess given mental status. Skin: Skin is warm and dry. No petechiae. No purpura. Neurological: Alert. Not oriented to place or time. She is able to move all four extremities and reach with both hands, move both legs against gravity and resist against force. No obvious facial droop noted. Psychiatric: Makes eye contact. Follows commands. Appears somewhat restless. Rectal: no gross blood 09/13/17 21:37 Vital Signs Reviewed: Yes Temperature: Afebrile Blood Pressure: Normal Pulse: Regular Respiratory Rate: Normal Appearance: Positive for: Non-Toxic Mental Status: Positive for: Confused Medical Decision Making ED Course and Treatment: 09/13/17 18:48 Impression: 89 year old female presents to the Emergency department for slurred speech and left sided weakness. Differential Diagnosis included but are not limited to: CVA vs. TIA Plan: -- Blood type and screen -- CT of head -- EKG -- Labs -- Chest X-ray -- IV Fluids -- Reassess and disposition Prior Visits: Notes and results from previous visits were reviewed. Progress Notes: Patient's history obtained from patient and daughter. Patient triaged upon arrival and CODE STROKE activated by triage nurse based on initial provided history. 09/13/17 18:45 CODE STROKE ACTIVATED. 09/13/17 18:56 CT of head reviewed by radiologist, shows no acute intracranial changes. Patient evaluated by me with daughter at bedside. Patient's symptoms were NOTICED at 3 pm, but patient's daughter states that she was sleeping at the time and when she woke up patient she had these symptoms. However, patient reportedly has had some deficits from PREVIOUS stroke, and on re-evaluation with daughter present the daughter states that the weakness noted and speech difficulty was "better" and "how she typically is". Based on rapid improvement of her symptoms as well as unknown time of onset of symptoms, PATIENT IS NOT A TPA CANDIDATE. With serial exams she has no new focal deficits noted. She typically takes xanax at night as per daughter. Patient was noted to be increasingly agitated at 1999. Xanax was ordered. No fever noted. NO chest pain or respiratory distress. Patient will be admitted to Dr. Kang service for serial neuro exams, monitoring. PATIENT TOOK ASPIRIN PRIOR TO ARRIVAL 325 mg. THIS WAS GIVEN BY DAUGHTER. Code stroke neurologist was called. Dr. Kang requests Dr. Salamanca for neurology consultation. 09/13/17 22:09 Reassessment Condition: Re-examined - RAD Interpretation Radiology Orders: 09/13/17 18:48 HEAD W/O (CODE STROKE) [CT] Stat CHEST PORTABLE [RAD] Stat Barge Worker: Radiologist - EKG Interpretation EKG Interpretation (Text): 09/13/17 21:58 EKG at 1903 normal sinus rhythm rate of 80 with right bundle branch block Interpreted by ED Physician: Yes Type: 12 lead EKG - Medication Orders Current Medication Orders: Sodium Chloride (Sodium Chloride 0.9%) 1,000 mls @ 100 mls/hr IV .Q10H RAUL - Scribe Statement The provider has reviewed the documentation as recorded by the Scribe Brea Fleming. All medical record entries made by the Scribe were at my direction and personally dictated by me. I have reviewed the chart and agree that the record accurately reflects my personal performance of the history, physical exam, medical decision making, and the department course for this patient. I have also personally directed, reviewed, and agree with the discharge instructions and disposition. NIHSS Scale ([place]) Time Performed: 19:00 - How Severe is the Stoke Baseline Level of Consciousness: 0=Alert LOC to Questions: 0=Both comments correct LOC to commands: 0=Obeys both correctly Best Gaze: 0=Normal Visual: 0=No visual loss Facial: 0=Normal Motor Arm - Left: 1=Drift noted before 10 sec Motor Arm - Right: 0=No drift Motor Leg - Left: 0=No drift Motor Leg - Right: 0=No drift Limb Ataxia: 0=Absent Sensory: 0=Normal Best Language: 0=No aphasia Dysarthia: 0=Normal articulation Extinction & Inattention (Neglect): 0=Normal, no object Score: 1 Risk Level: Minor Stroke Risk Disposition/Present on Arrival - Present on Arrival Any Indicators Present on Arrival: No History of DVT/PE: No History of Uncontrolled Diabetes: No Urinary Catheter: No History of Decub. Ulcer: No History Surgical Site Infection Following: None - Disposition Have Diagnosis and Disposition been Completed?: Yes Diagnosis: Anxiety, TIA (transient ischemic attack) Disposition: HOSPITALIZED Disposition Time: 20:00 Patient Plan: Admission, Telemetry Patient Problems: Current Active Problems Problem Status Onset Anxiety Acute TIA (transient ischemic attack) Acute Condition: SERIOUS
[2017-09-13] MEDS: Sodium Chloride 0.9% 1,000 ML IV SCH (19:59)
[2017-09-13 20:04] LABS: BASO # 0.02 K/mm3 (0.0-2.0); BASO % 0.3 % (0.0-3.0); EOS # 0.1 (0.0-0.7); EOS % 0.9 % (1.5-5.0); GRAN # 4.29 (1.4-6.5); HEMOGLOBIN 14.6 g/dL (12.0-16.0); LYMPH # 1.1 (1.2-3.4); LYMPH % 18.8 % (22.0-35.0); MEAN CELL VOLUME 93.5 fl (80.0-105.0); MEAN CORPUSCULAR HEMOGLOBIN 31.7 pg (25.0-35.0); MEAN CORPUSCULAR HGB CONC 33.9 g/dl (31.0-37.0); MEAN PLATELET VOLUME 9.9 fl (7.0-11.0); MONO # 0.4 (0.1-0.6); RBC 4.61 10^6/uL (3.5-6.1); RED CELL DISTRIBUTION WIDTH 13.7 % (11.5-14.5); WHITE BLOOD COUNT 5.8 10^3/ul (4.5-11.0)
[2017-09-13 20:06] LABS: ALB/GLOB RATIO 1.5 (1.1-1.8); ALBUMIN 4.3 g/dL (3.0-4.8); ALT/SGPT 31 U/L (7-56); AST/SGOT 33 U/L (14-36); BLOOD UREA NITROGEN 18 mg/dL (7-21); CALCIUM 8.9 mg/dL (8.4-10.5); GFR AFRICAN-AMERICAN > 60; GFR NON-AFRICAN AMERICAN > 60; HDL CHOLESTEROL 52 mg/dL (29-60)
[2017-09-13 20:10] LABS: INR 1.03 (0.93-1.08); PARTIAL THROMBOPLASTIN TIME 29.3 Seconds (25.1-36.5); PROTHROMBIN TIME 11.8 SECONDS (9.4-12.5)
[2017-09-13 20:17] LABS: LDL CHOLESTEROL 99 mg/dL (0-129)
[2017-09-13 20:22] LABS: TROPONIN I < 0.01 ng/mL
--- NOTE | 2017-09-14 01:25 | CP.PCM.PN ---
Subjective - Date & Time of Evaluation Date of Evaluation: 09/14/17 Time of Evaluation: 01:22 - Subjective Subjective: It was requested to co sign order for Seroquel 25 mg PO HS. Discussed with nurse Lenny. Chart was reviewed. Patient received Xanax earlier in the ER. Seroquel has been given. Changed Seroqul to one time order , since it has been given already. We are going to need input by neurologist as to we should give , continue to give Xanax and or Seroquel considering the reason she has come here. Objective - Vital Signs/Intake and Output Vital Signs (last 24 hours): Temp Pulse Resp BP Pulse Ox 97.6 F 82 20 101/62 97 09/13/17 22:55 09/13/17 23:48 09/13/17 23:48 09/13/17 22:55 09/13/17 22:55 - Medications Medications: Current Medications Sodium Chloride (Sodium Chloride 0.9%) 1,000 mls @ 100 mls/hr IV .Q10H RAUL Last Admin: 09/13/17 19:59 Dose: 100 mls/hr - Labs Labs: PT 11.8 SECONDS (9.4-12.5) 09/13/17 19:41 INR 1.03 (0.93-1.08) 09/13/17 19:41 APTT 29.3 Seconds (25.1-36.5) 09/13/17 19:41
[2017-09-14] MEDS: Sodium Chloride 0.9% 1,000 ML IV SCH ×2 (04:30→10:55)
--- NOTE | 2017-09-14 08:40 | RAD ---
Date of service: 09/13/2017 HISTORY: Code Stroke COMPARISON: 10/30/2016 FINDINGS: LUNGS: Emphysematous changes. No focal infiltrate PLEURA: No significant pleural effusion identified, no pneumothorax apparent. CARDIOVASCULAR: Normal. OSSEOUS STRUCTURES: No significant abnormalities. VISUALIZED UPPER ABDOMEN: Normal. OTHER FINDINGS: None. IMPRESSION: COPD
--- NOTE | 2017-09-14 10:59 | MRI ---
Date of service: 09/14/2017 PROCEDURE: MRI BRAIN WITHOUT CONTRAST HISTORY: cva/tia/ams COMPARISON: MRI 03/31/2016 TECHNIQUE: Multiplanar, multisequence MR images of the brain were obtained without intravenous contrast enhancement. FINDINGS: HEMORRHAGE: None DWI: No evidence of an acute or early subacute infarction. BRAIN PARENCHYMA: No mass effect or edema. There is extensive encephalomalacia in the right frontal and temporal lobe and basal ganglia. No acute infarct VENTRICLES: Unremarkable. No hydrocephalus. CRANIUM: Unremarkable. ORBITS: Grossly unremarkable. PARANASAL SINUSES/MASTOIDS: Clear VASCULAR SYSTEM: Skull base flow voids intact. OTHER FINDINGS: None. IMPRESSION: There is extensive encephalomalacia in the right frontal and temporal lobe and basal ganglia. No acute infarct
--- NOTE | 2017-09-14 17:59 | CON ---
DATE: 09/14/2017 NEUROLOGY CONSULTATION CHIEF COMPLAINT: Change in slurred speech and worsening residual left-sided weakness and agitation. 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 The patient was not moving the left. She had marked slurred speech more than typical and difficulty moving her left side, worse than her baseline. Currently, feels like she does have spastic left-sided hemiplegia from prior right anterior territory infarct. Her MRI of the brain showed extensive encephalomalacia of the right frontotemporal lobe and basal ganglia, but no acute infract. She does get agitation and I have increased her Seroquel to 12.5 every a.m. and 25 mg at bedtime. She is on aspirin and statin for stroke prevention. Her blood pressures are stable. PAST MEDICAL HISTORY: As above. SOCIAL HISTORY: No illicit drug use, smoking, or EtOH abuse. ALLERGIES: NO KNOWN DRUG ALLERGIES. MEDICATIONS: Reviewed by nurse per reconciliation sheet. FAMILY HISTORY: Noncontributory. REVIEW OF SYSTEMS: A 14-point review of systems is negative except as per the HPI. LABORATORY DATA: Sodium is 147, potassium 4, chloride of 107, carbon dioxide of 28. BUN of 18, creatinine of 0.7. Random glucose of 103, A1c 5.8. PHYSICAL EXAMINATION: VITAL SIGNS: Temperature 98.4, pulse rate 72, blood pressure 124/67, and respiratory rate of 20. GENERAL: The patient is sitting up in bed, drowsy, in no acute distress. HEENT: Head is atraumatic, normocephalic. PERRLA. Extraocular muscles intact. NECK: Supple. No JVD, no adenopathy noted. LUNGS: Clear to auscultation. No adventitious sounds. HEART: S1 and S2, normal rate and rhythm. No murmurs, rubs, or gallops. ABDOMEN: Soft, nontender, and nondistended. Bowel sounds present. EXTREMITIES: No clubbing, no cyanosis. Peripheral pulses are 2+ felt bilaterally. NEUROLOGIC: The patient is alert and oriented to person, not much to place or year. Recall after 5 minutes is 0/3. Poor attention span. Slow thought process. Feels very agitated. Cranial nerves II through XII intact. Motor exam has residual left-sided hemiparesis from prior CVA, slight increased tone throughout, right side is intact. Sensory exam: Withdraws to localized noxious stimulus. Proprioception intact. DTRs are 2+ throughout and 1 at both knees and ankles. Coordination is difficult from the left side due to left-sided hemiparesis and right is intact. Gait deferred for now. ASSESSMENT: This is an 89-year-old woman with past medical history of the right middle cerebral artery territory infarct which was seen on her CAT scan showing extensive encephalomalacia of the right frontotemporal lobe and basal ganglia, hypertension, chronic obstructive pulmonary disease, agitation, [id number] cognitive impairment, who presented with worsening baseline slurred speech and worsening left-sided weakness from her baseline, which is currently I feel like she is at her baseline. Her MRI of the brain showed no acute intracranial abnormalities or no acute infarct, just chronic encephalomalacia of the right frontotemporal lobe and basal ganglia. At this time, acute deconditioned state, possible questionable transient ischemic attack; recommend: 1. Aspirin 81, Lipitor 40 for stroke prevention. 2. For her agitation and behavioral disturbance from cognitive impairment from CVA, we will recommend Seroquel 12.5 mg p.o. every a.m. and 25 mg p.o. at bedtime and PT/OR evaluation. Continue with current present medical management. Thank you for this consultation. Vitaliy Salamanca MD
[2017-09-15] MEDS: Sodium Chloride 0.9% 1,000 ML IV SCH (02:19)
--- NOTE | 2017-09-15 14:54 | PN ---
DATE: 09/15/2017 DAILY PROGRESS NOTE SUBJECTIVE: The patient was seen this Sunday morning in room 263, bed 1. Her left hand is restrained as there was quite a bit of arm movement during the night, tugging at the monitor wires and intravenous. I viewed this as a positive sign of marked improvement in her left arm strength and function after the period of weakness on that side noticed post acute stroke. PHYSICAL EXAMINATION: GENERAL: The patient is more awake and alert, trying to talk to me, but again speech is a bit garbled from underlying dementia. HEAD AND NECK: Unremarkable. I do not see any carotid bruits. LUNGS: Good air exchange, right and left. There is no wheezing, no rhonchi. HEART: Regular, not tachycardic. EXTREMITIES: Thin and frail. LABORATORY DATA: Lab results are acceptable. CT scan report was noted. MRI report is now available showing no acute infarct visible on the MRI; however chronic changes and old stroke present. In view of the clinical presentation and improvement over the last 24 hours, with still some residual neurologic deficits, this may qualify as an acute CVA although not visible on MRI, vs. a TIA or RIND, but I will discuss that between Neurology and Radiology as well. I spoke with the patient's daughter at great length regarding her mother's progress that how clinically this looks like TIA/CVA, but with symptoms extending beyond 24 hours more typical of CVA. We will ask Physical Therapy to see the patient and walk with her as she was walking at home a short while ago with assistance and with a walker. The patient will then go to Transitional Care Unit. After I see the physical therapy eval, I will write the order tomorrow for TCU. We will discontinue telemetry at this time. Again, I spoke with the patient's daughter and reviewed our plan for rehab after this acute care hospital stay. Kvng Kang MD LUCY
--- NOTE | 2017-09-15 16:21 | US ---
PROCEDURE: HISTORY: Carotid stenosis PHYSICIAN(S): Akshat Valentine MD. TECHNIQUE: Duplex sonography and color-flow Doppler were used to evaluate the carotid bifurcations and limited segments of the vertebral arteries bilaterally. FINDINGS: There is blunted antegrade flow in the right common carotid artery. Dense echogenic plaque is noted at the origin of the right internal carotid artery. No flow was demonstrated on sonography. This could represent a chronic occlusion of the proximal right internal carotid artery. This can be confirmed with CTA, MRA, or conventional arteriogram if clinically indicated. The right external carotid artery is patent. There is antegrade flow in the large right vertebral artery. There is mild to moderate smooth heterogeneous plaque at the left carotid bifurcation. The peak systolic velocity in the proximal left internal carotid artery is 90 cm/second. This corresponds to a 20-39 percent proximal left ICA stenosis. Normal velocities are seen in the proximal left external carotid artery. There is antegrade flow in the large left vertebral artery. IMPRESSION: 1. Dense calcification and possible occlusion of the proximal right internal carotid artery. This can be confirmed with CTA, MRA, or conventional arteriography if clinically indicated. 2. 20-39 percent proximal left ICA stenosis. 3. Antegrade flow in the large bilateral vertebral arteries.
--- NOTE | 2017-09-15 16:49 | HP ---
CHIEF COMPLAINT: "I think my mother had another stroke". HISTORY OF PRESENT ILLNESS: This is an 89-year-old woman I have known for many years, last seen in the house call approximately one month ago who presented to the Emergency Room with the above complaint. The patient was in her usual state of health, which involved ambulating about her trailer, taking p.o. food and liquids without difficulty, smoking a few cigarettes a day, able to speak but in garbled gibberish language due to her underlying dementia, cared for by her daughter from [place] who is now living with her. The patient's daughter says that she was in her usual state, and took a nap this late afternoon, but when she awoke, she had slurred speech and marked difference in her left-sided weakness. She was unable to ambulate and unable to hold things in her left hand, which she had been able to before and so ambulance was called and she came to the Emergency Room. In the ER, code stroke was called because of the obvious slurred speech and left upper extremity weakness, reported to be different from baseline. The patient was not a candidate for tPA because of the extended period of time of her nap and uncertainty as to the time of the stroke as well as her underlying health issues, so arrangements were made for her to be admitted to a monitored bed. CT scan was done in the ER, labs were drawn, my office was notified, arrangements were made for Neurology consultation, aspirin, statins, etc. PAST MEDICAL HISTORY: Significant for COPD as the patient was a heavy smoker all her life; negative for hypertension, diabetes, hyperlipidemia, tuberculosis, asthma, seizures and gout. Past history is positive for atherosclerotic cerebrovascular disease, stroke in 03/2016. She also has a history of breast cancer in 1968, severe agoraphobia and anxiety, she was hospitalized overnight for COPD and dehydration in 2016 and that is about the time the worsening of mental status and dementia had developed to the moderate to severe stage. There were four hospitalizations in 2016 for anxiety, dizziness, chest pain and several hospitalizations before that again for anxiety and chest pain. Her last stress test was in 03/2015 and 05/2014, both with no signs of ischemia and good ejection fraction. PAST SURGICAL HISTORY: Positive for cholecystectomy in 1949, left-sided mastectomy in 1968 followed by radiation and chemo, she had knee surgery in the 1949s and a total knee replacement in 07/2012. She had ovarian cyst removed in 2004, right inguinal hernia repair in 11/2005 and nerve entrapment and cyst removed from the right groin in 03/2012. ALLERGIES: SHE HAS NO KNOWN ALLERGIES TO MEDICATIONS, BUT ALWAYS COMPLAINED THAT SSRIS' LEFT HER IN A "ZOMBI-LIKE" STATE. FAMILY HISTORY: Her mother lived a long life passing away at age 83. Her father as well. She is number 2 of 7 siblings. She had 5 brothers and 1 sister. She is a since 06/2007 when she lost her , [employer], a [employer]. She has 4 children, 3 are alive and well, and 1 daughter and 3 sons, 1 at the age of 19 with a drug-related overdose. She lives with and is cared for by her daughter, Julia. SOCIAL HISTORY: [facility] [address] [place] [address] with her daughter, Julia, formerly of [place]. Her tobacco use has been cut to only a few cigarettes a day. She does not drink alcohol. She drinks 1 cup of coffee per day. Her last colonoscopy was in 2004. Her last mammogram was in 2012. She had a thallium stress test in 2010, 2014, and 2015. 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 REVIEW OF SYSTEMS: Not possible because of her confusional state and post-stroke lethargy. PHYSICAL EXAMINATION: GENERAL: The patient was seen this Sunday morning in room 263, bed 1. She is lying in the bed, comfortable, making attempts to speak with me. Her speech is not clear or coherent due to her underlying dementia. There is some left-sided facial droop noted. Overall body habitus is frail. HEENT: Conjunctivae are pink. Mucous membranes are moist. NECK: Supple without masses. SKIN: Skin turgor is good, color is actually improved with essentially a dramatic decrease in tobacco use. HEART: Regular, not tachycardic. LUNGS: Show markedly decreased breath sounds of severe COPD with prolonged expiratory phase. There are no rales or wheezes. ABDOMEN: Thin, scaphoid, nontender with no palpable masses. EXTREMITIES: Thin, frail with no edema. NEUROLOGIC: There is marked left-sided weakness. Hand grasp and movement is decreased which is a change from her baseline of one month ago. Cognitive function is poor as noted above. IMPRESSION: 1. Acute stroke versus transient ischemic attack. 2. Severe chronic obstructive pulmonary disease. 3. Hyperlipidemia. 4. Status post cerebrovascular accident in the past. 5. Dementia, post infarct versus slowly progressive. 6. Tobacco use disorder. 7. Severe anxiety and agoraphobia. 8. Sensitivity to selective serotonin reuptake inhibitors. 9. Status post knee replacement. 10. Breast cancer, status post left mastectomy. PLAN: The patient will be admitted to a monitored bed. MRI will be performed, may also follow up on carotids in view of history of significant carotid stenosis in the past and the possibility of emboli. MRI ordered. Aspirin and statins ordered. Spoke with the patient's daughter regarding diagnosis and treatment plan. When clinically stable, the patient will probably go to a subacute rehab facility for a brief period of time before returning home. Kvng Kang MD MTDD
--- NOTE | 2017-09-16 16:39 | PN ---
DATE: 09/16/2017 DAILY PROGRESS NOTE SUBJECTIVE: The patient was seen this Sunday morning in room 367, bed 2. She reportedly had a rough night, was up until 1 or 2 o'clock in the morning, restless and pulling at her restraints and IV. She is off telemetry. This Sunday morning, the patient was seen in room 367, bed 2. Quite sleepy, sedated, not arousable to voice or light touch. PHYSICAL EXAMINATION: LUNGS: Show good aeration right and left. HEENT: Conjunctivae pink. Mucous membranes are moist. HEART: Regular, not tachycardic. NECK: Supple. I do not hear any carotid bruits, right or left EXTREMITIES: No edema. NEUROLOGIC: The patient was lethargic and sleepy, so I could not assess motor strength in the left upper extremity. IMPRESSION: 1. CVA 2. AMS - may me medication and/or CVA related 3. ASCVD 4. TIA 5. COPD 6. Dementia ASSESSMENT AND PLAN: Medications reviewed with the nurse at the bedside. I will decrease her sedation and request physical therapy to get her out of bed as she was much more awake yesterday afternoon into the evening. We will ask for TCU eval. Carotid ultrasound report was noted showing possible occlusion on the right. Dr. Akshat Valentine, vascular interventional radiologist was called for consult. I discussed the case with him today. In the past we have chosen to take a conservative approach but this may change given the the patient's condition. If MS clears to baseline, and no intervention planned, then our plan would be for her to go to have a good physical therapy performance evaluation today and then go to Transitional Care for additional therapy, ambulation as she was at home only 2 weeks ago with a walker and constant guarding. If Transitional Care Unit is not a possibility, second choice option would be [facility]. We will discuss with case finisher and social services manager tomorrow. Kvng Kang MD MTDRaffi
[2017-09-17] MEDS ORDERED: DiphenhydrAMINE 50 mg/ml Inj IVP ONE (02:47)
--- NOTE | 2017-09-18 13:34 | CON ---
DATE: 09/18/2017 TIME: 12:00 p.m. CHIEF COMPLAINT/HISTORY OF PRESENT ILLNESS: This is an 89-year-old female, who was admitted with a TIA. Her past medical history is significant for a large right MCA infarct approximately 1 year ago. She has been on appropriate medical management with significant progressive dementia. She continues to smoke. I reviewed her prior imaging. Her MRI on this admission demonstrates significant encephalomalacia related to her prior right MCA infarct. No acute stroke is seen. Her carotid ultrasound demonstrates progression of the critical right ICA stenosis to complete occlusion. On the left, her velocities are 90 cm/second consistent with a 20-39% proximal left ICA stenosis. This is not changed significantly. The vertebral arteries are patent. Given her overall medical condition, I would recommend medical management at this time. There is no indication for revascularization. I discussed the situation with Dr. Kvng Kang. Akshat Valentine MD MTDD
[2017-09-18 16:57] VITALS: RESP 20
[2017-09-18] MEDS: Sodium Chloride 0.9% 1,000 ML IV SCH (20:00)
--- NOTE | 2017-09-18 23:08 | PN ---
DATE: 09/18/2017 SUBJECTIVE: Patient was seen this Sunday at lunch time in room 367, bed 1. At this time, she was a bit lethargic and sleepy. Unfortunately my efforts at physical therapy and rehab has not been going well. Patient has been sleepy during her physical therapy times and . She has not been out of bed and has been restless and agitated at night. She does wake up for meals and seems to be eating well according to the nursing staff. I spoke to the patient's nurse at bedside. IV fluids to infuse as her p.o. fluid intake is poor. Case was discussed with Neurology, Dr. Juancarlos Salamanca, who will reassess the patient today as to her altered mental status and persistent lethargy, groggy state, post acute CVA on admission. Case was discussed with Dr. Akshat Valentine regarding the complete occlusion of the right carotid artery on recent ultrasound. Left carotid and vertebral seem okay. Therefore, there will be no intervention at this time. Case management, social service's notes reviewed. Apparently, patient has been declined from transitional care. Therefore, hopefully, they are looking into [facility] post CVA. PHYSICAL EXAMINATION: GENERAL: Patient is lying comfortably in bed. She is arousable with a touch and mild voice, but is confused, does not recognize me. HEAD AND NECK: Unremarkable except for temporalis muscle wasting and evidence of chronic weight loss. Mucous membranes are moist, supple without masses. LUNGS: Good aeration, right and left with prolonged expiratory phase with chronic COPD. HEART: Regular, not tachycardic. ABDOMEN: Soft, thin, and scaphoid. EXTREMITIES: Thin with no edema. IV fluids continued to infuse. Aspirin, Atorvastatin are ordered. Because of the increased lethargy, I will reschedule the Seroquel as well as the alprazolam. Later this evening, in a conversation with patient's daughter, she told me that the patient does have some degree of sundowning at night. She will schedule her Seroquel and alprazolam in the event and that will allow the patient some 5 to 7 hours of sleep. So, I will modify her medication regimen to follow that schedule. I will ask for Physical Therapy once again to evaluate her in the morning to try to get the patient out of bed and at least sitting in the chair or ambulating. I spoke with patient's daughter Julia about discharge plans. Again, as stated in my several notes of the above, our preferred option would be transitional care for additional physical therapy. Next best option would be [facility] for physical therapy and rehab, but the patient's daughter is available to take her home back to where she was but of course, of our concern is that a week before coming to the hospital, she was able to ambulate with a walker and assistance of one and her condition has deteriorated quite a bit since the stroke. Hopefully, physical therapy would be to help. PLAN: I will speak with patient's daughter again in the morning. She spoke with Luis Miguel from case management and mental health social worker earlier today and we will work on the above plans as outlined. Kvng Kang MD
[2017-09-19 05:05] LABS: URINE BILIRUBIN NEGATIVE (NEGATIVE); URINE BLOOD NEGATIVE (NEGATIVE); URINE GLUCOSE (UA) NEGATIVE (NEGATIVE); URINE LEUKOCYTE ESTERASE NEGATIVE Leu/uL (NEGATIVE); URINE PROTEIN NEGATIVE mg/dL (<30 mg/dL); URINE UROBILINOGEN 0.2 E.U./dL (<1 E.U./dL)
[2017-09-19 05:26] LABS: URINE COLOR YELLOW (YELLOW)
[2017-09-19 05:27] LABS: URINE APPEARANCE SLIGHT-CLOUDY (CLEAR)
[2017-09-19 07:32] LABS: BASO # 0.01 K/mm3 (0.0-2.0); BASO % 0.2 % (0.0-3.0); EOS # 0.1 (0.0-0.7); EOS % 1.7 % (1.5-5.0); GRAN # 3.69 (1.4-6.5); GRAN % 60.8 % (50.0-68.0); HEMOGLOBIN 13.6 g/dL (12.0-16.0); LYMPH # 1.9 (1.2-3.4); LYMPH % 31.4 % (22.0-35.0); MEAN CORPUSCULAR HEMOGLOBIN 31.2 pg (25.0-35.0); MEAN CORPUSCULAR HGB CONC 34.7 g/dl (31.0-37.0); MEAN PLATELET VOLUME 9.8 fl (7.0-11.0); MONO # 0.4 (0.1-0.6); MONO % 5.9 % (1.0-6.0); RBC 4.36 10^6/uL (3.5-6.1); RED CELL DISTRIBUTION WIDTH 13.6 % (11.5-14.5); WHITE BLOOD COUNT 6.1 10^3/ul (4.5-11.0)
[2017-09-19 07:34] LABS: MEAN CELL VOLUME 89.9 fl (80.0-105.0)
[2017-09-19 07:40] LABS: BLOOD UREA NITROGEN 6 mg/dL (7-21); CALCIUM 8.4 mg/dL (8.4-10.5); GFR AFRICAN-AMERICAN > 60; GFR NON-AFRICAN AMERICAN > 60
[2017-09-19] MEDS: Sodium Chloride 0.9% 1,000 ML IV SCH ×2 (12:20→22:58)
[2017-09-20 16:36] VITALS: BP 130/62; PULSE 81; TEMP 97.9; O2SAT 97
--- NOTE | 2017-09-20 23:51 | PN ---
DATE: 09/20/2017 SUBJECTIVE: Patient was seen this morning in room 367, bed 1. All arrangements had been made. Unfortunately, she had been turned down from Transitional Care as well as any subacute rehab for additional physical therapy. I spoke with the physical therapist myself, who said the patient was able to stand and walk with the walker when led, but only walk a few steps. Most of this he feels is not because of strength and motor weakness or coordination problems, but more so because of the underlying dementia and inability to follow instructions. The patient did well yesterday, was much more alert and trying to be talkative. Today, her mental status remained in an improved state, but not quite from the baseline that it was at home 2-3 weeks ago. I spoke with the patient's daughter on a regular basis. We last spoke yesterday when she was ready to confirm and reconfirm the arrangements if the patient to be discharged today. I asked the nursing staff to make arrangements with for approximately 6 o'clock, but I will need to talk to her daughter first to be sure she is home as the patient could not be left in her trailer at the [facility] alone. Unfortunately, since the day of admission, the patient's daughter has been avoiding egg caser and the social workers after a difficult conversation on that first day. She has however been speaking to me regularly. Surprisingly, today, she did not answer my call and as of the time of this dictation, at 8.30 p.m., I have still not heard from her, therefore, the patient will stay in the hospital tonight as discharge to home would clearly be unsafe. I will place calls to the patient's daughter again tomorrow as I am sure case management and social service as well. Once again, the patient was expected to be home. She should be at the mother's house. Because discharge was not possible today, we will make arrangements for tomorrow. Kvng Kang MD
== END 2017-09-20 21:04 | disposition home or self-care (01) | DRG 69 ==
LOC: ED 18:37 → ERH 21:00 → 2RNO 23:19 → 3RNO 09-15 12:43
PROVIDERS: ADMIT Internal Medicine; ATTEND Internal Medicine
DX: G45.9 Transient cerebral ischemic attack, unspecified (principal); F03.91 Unspecified dementia, unspecified severity, with behavioral disturbance; G81.94 Hemiplegia, unspecified affecting left nondominant side; Z68.1 Body mass index [BMI] 19.9 or less, adult; E78.5 Hyperlipidemia, unspecified; F17.210 Nicotine dependence, cigarettes, uncomplicated; F40.00 Agoraphobia, unspecified; F41.0 Panic disorder [episodic paroxysmal anxiety]; G93.89 Other specified disorders of brain; I10 Essential (primary) hypertension; I25.10 Atherosclerotic heart disease of native coronary artery without angina pectoris; I65.23 Occlusion and stenosis of bilateral carotid arteries; I67.2 Cerebral atherosclerosis; J44.9 Chronic obstructive pulmonary disease, unspecified; Z79.02 Long term (current) use of antithrombotics/antiplatelets; Z79.899 Other long term (current) drug therapy; Z85.3 Personal history of malignant neoplasm of breast; Z86.73 Personal history of transient ischemic attack (TIA), and cerebral infarction without residual deficits; Z90.12 Acquired absence of left breast and nipple; Z90.49 Acquired absence of other specified parts of digestive tract; Z96.651 Presence of right artificial knee joint; R63.4 Abnormal weight loss; Z78.1 Physical restraint status